=== PATIENT | male | born 1960 | race African-American/Black ===

== ENCOUNTER 2019-08-06 17:50 | Inpatient (IN) ==
[2019-08-06] MEDS ORDERED: PROTONIX IV ONE (18:10)
[2019-08-06] MEDS ORDERED: ZOFRAN IV ONE (18:10)
[2019-08-06] MEDS ORDERED: SODIUM CHLORIDE 0.9% INJ ONE (18:10)
[2019-08-06] MEDS ORDERED: SANDOSTATIN IV ONE (18:12)
--- NOTE | 2019-08-06 18:19 | PROVIDER DOCUMENTATION ---
HPI-General Adult - General Chief Complaint: GI Bleed Stated Complaint: MALE /RECTAL BLEEDING Time Seen by Provider: 08/06/19 17:53 Source: patient, family, EMS Allergies/Adverse Reactions: Patient Allergies Allergy/AdvReac Type Severity Reaction Status Date / Time No Known Allergies Allergy Verified 08/06/19 18:19 Home Medications: Home Medication List Medication Instructions Recorded Confirmed Last Taken Type Hydrochlorothiazide 12.5 mg PO QAM 08/06/19 08/06/19 Unknown History - History of Present Illness -Gen Adult Nature of Presenting Problems: 59yo male presents with CC of bleeding from rectum, bloody vomit, and blood from penis. The patient is lethargic on arrival but is responsive to questions and reports that he started vomiting this morning and also reports abdominal pain. The pt reports that started 1 hour ago the patient started to have blood in his stool and then was vomiting up blood. EMS reports that the patient was vomiting up blood about 250cc. The pt denies that he is on a blood thinner. The patient does have hx of alcohol as well as illegal drug use. The patient does have hx of prostate cancer for which he received radiation. Location of Pain/Injury: reports: abdomen Severity: reports: moderate Onset/Duration: reports: 1 hour ago, this morning Timing: reports: still present Associated Symptoms: reports: nausea, vomiting, other (bloody stool and vomit). denies: fever/chills Review of Systems - Adult - REVIEW OF SYSTEMS - ADULT ROS:: ROS per family (some from patient) Constitutional: reports: no symptoms reported. denies: fever Eyes: reports: no symptoms reported. denies: eye pain Ears, Nose, Mouth & Throat: reports: no symptoms reported Cardiovascular: reports: chest pain Respiratory: denies: shortness of breath Gastrointestinal: reports: abdominal pain, hematemesis, nausea, rectal bleeding, vomiting Genitourinary: reports: hematuria Musculoskeletal: reports: no symptoms reported Integumentary: reports: no symptoms reported Neurological: reports: other (altered mentation) Psychiatric: reports: alcohol/drug dependence Endocrine: reports: no symptoms reported Hematologic/Lymphatic: reports: other (bleeding and hx of radiation) Allergic/Immunologic: reports: no symptoms reported Past History - Adult - PAST MEDICAL HISTORY-ADULT Review of Records: reports: Old Records Reviewed Major Childhood Illnesses: reports: denies history Cardiovascular: reports: A-Fib, HTN Respiratory: reports: denies history Gastrointestinal: reports: GERD Obstetrical/Gynecological: reports: denies history Genitourinary: reports: denies history Musculoskeletal: reports: denies history Neurological: reports: denies history Endocrine/Immune: reports: denies history Other Conditions: reports: denies history - PRIOR SURGERIES/PROCEDURES Surgical/Procedure History: reports: other (bypass graph) - PRIOR HOSPITALIZATIONS Prior Hospitalizations: reports: none - IMMUNIZATION STATUS Childhood Immunizations: See Nurse Assessment Flu Vaccine: See Nurse Assessment - FAMILY HISTORY Family History: reviewed, not pertinent Physical Exam-General - PHYSICAL EXAM-ADULT Initial Vital Signs Reviewed: Yes - CONSTITUTIONAL General Appearance: mild distress, lethargic, slow to respond - EYES Eyes: negative: conjuctival exudate, pale conjunctivae, photophobia, sclera injected, scleral icterus - HEAD, EARS, NOSE, MOUTH & THROAT HENMT: normocephalic/atraumatic, moist mucous membranes. negative: hearing deficit - NECK Neck: non-tender, supple - RESPIRATORY Respiratory: normal breath sounds, no respiratory distress - CARDIOVASCULAR Cardiovascular: other (irregular rhythm). negative: no edema (Trace LE edema) - GASTROINTESTINAL (ABDOMEN) Abdominal Exam: soft, distended, guarding, tenderness (diffuse) - GENITOURINARY Male Genitalia: normal genitalia (grossly normal, no deformity or active bleeding noted) Rectal Exam: black stool, tenderness - MUSCULOSKELETAL Extremity: non-tender, swelling (trace LE edema). negative: deformity - SKIN Integumentary: normal color, warm/dry - NEUROLOGIC Neurologic: grossly normal - PSYCHIATRIC Psych/Mental Status: disoriented x 3 (patient able to say his name), other (patient does follow commands and can engage in some meaningful conversation, but does struggle to answer questions or speak coherently.) Progress - PLAN OF CARE/RESULTS Progress/Plan/Lab Results: Orders Category Date Time Status CBC WITH ELECTRONIC DIFF [HEME] Stat Lab 08/06/19 18:09 Uncollected COMPREHENSIVE METABOLIC PANEL [CHEM] Stat Lab 08/06/19 18:09 Uncollected OCCULT BLOOD NON-FECES Stat Lab 08/06/19 18:10 Uncollected OCCULT BLOOD SCREENING [STOOL] Stat Lab 08/06/19 18:10 Uncollected PROTIME WITH INR [COAG] Stat Lab 08/06/19 18:09 Uncollected PTT [COAG] Stat Lab 08/06/19 18:09 Uncollected TYPE & SCREEN [BBK] Stat Lab 08/06/19 18:09 Uncollected 0.9% Sodium Chloride Inj [Ns] 1,000 ml Med 08/06/19 18:15 Ordered IV 125 mls/hr Octreotide Acetate [Sandostatin] Med 08/06/19 18:12 Once 50 microgm IV NOW ONE Ondansetron [Zofran] Med 08/06/19 18:10 Once 4 mg IV NOW ONE Pantoprazole [Protonix] Med 08/06/19 18:10 Once 40 mg IV NOW ONE Sandostatin 5 Microgm/ml Infusion Med 08/06/19 18:15 Ordered Dextrose 5%-Water Inj [D5w] 100 ml Octreotide Acetate [Sandostatin] 500 microgm IV 10 mls/hr Sodium Chloride 0.9% Med 08/06/19 18:10 Once 10 ml INJ NOW ONE GI Bleed (possible) Stat Oth 08/06/19 18:09 Ordered Result Diagrams: 08/06/19 18:12 08/06/19 18:12 - REASSESSMENT Reassessment #1 Status: other (Discussed case with the GI team who recomended vitamin K and protonix drip, and FFP if needed. The GI team recomended admission to the hospitalist team. The hospitalist team was called and agreed to admit the patient.) Departure - Departure Date of Disposition Decision: 08/07/19 Time of Disposition Decision: 20:44 DIAGNOSIS: Alcohol abuse GI bleed Qualifiers: GI bleed type/associated pathology: unspecified gastrointestinal hemorrhage type Qualified Code(s): K92.2 - Gastrointestinal hemorrhage, unspecified Disposition: ADMITTED INPATIENT 09 Certified Medical Emergency: Emergent Condition: Serious - Critical Care Note This patient required my direct & personal management of CC.: No Attestation - Physician/ BUTCH Attestation Patient care was provided by Advanced Practice Provider:: No The physician spent face to face time with patient:: Yes Advanced Practice Provider documentation review:: Supervising physician onsite and consulted in the evaluation and care of this patient. The physician did have a face to face encounter with the patient.
[2019-08-06] MEDS ORDERED: NS 1,000 ML IV ONE (18:25)
[2019-08-06 18:33] LABS: BASO# 0.07 X1000 (0.0-0.2); BASO% 0.8 % (0.0-0.8); EOS# 0.04 X1000 (0.0-0.7); EOS% 0.5 % (0.0-10.0); HEMATOCRIT 29.6 % (42.0-52.0); HEMOGLOBIN 10.1 g/dL (14.0-18.0); LYMPH# 2.61 X1000 (1.2-3.4); LYMPH% 31.3 % (20.5-51.1); MCH 31.7 PG (27-31); MCHC 34.1 g/dL (33-37); MCV 92.8 FL (81-99); MONO# 0.91 X1000 (0.11-0.59); MONO% 10.9 % (1.7-9.3); MPV 10.4 FL (7.4-10.4); NEUT# 4.71 X1000 (1.4-6.5); NEUT% 56.5 % (42.2-75.2); PLT 116 X1000 (130-400); RBC 3.19 XMIL (4.7-6.1); RDW 15.8 % (11.5-14.5); WBC 8.34 X1000 (4.8-10.8)
[2019-08-06 18:40] LABS: INR 1.66; PROTIME 19.9 Seconds (11.0-16.0)
[2019-08-06 18:41] LABS: PTT 35.4 Seconds (22.3-41.8)
[2019-08-06 18:56] LABS: AGAP 17; ALB/GLOB RATIO 0.8; ALBUMIN 2.9 g/dL (3.5-5.0); ALKALINE PHOSPHATASE 164 U/L (32-122); BUN 16 mg/dL (8-22); CALCIUM 8.3 mg/dL (8.8-10.2); CHLORIDE 109 mmol/L (98-107); COSMO 296; CREATININE 0.9 mg/dL (0.7-1.2); ESTIMATED GFR > 60; GLUCOSE 141 mg/dL (70-104); GOT 63 U/L (10-34); GPT 18 U/L (10-44); POTASSIUM 4.4 mmol/L (3.5-5.1); SODIUM 147 mmol/L (136-145); TCO2 21 mmol/L (25-35); TOTAL BILIRUBIN 1.75 mg/dL (0.20-1.00); TOTAL PROTEIN 6.6 g/dL (6.3-8.3)
[2019-08-06] MEDS ORDERED: VITAMIN K 10 MG in NS 50 ML IV ONE (19:00)
[2019-08-06] MEDS: SANDOSTATIN 500 MICROGM in D5W 100 ML IV SCH (19:00)
[2019-08-06] MEDS ORDERED: M.V.I.-12 10 ML, FOLIC ACID 1 MG, MAGNESIUM SULFATE 1 GM, THIAMINE 100 MG in NS 1,000 ML IV ONE (19:01)
[2019-08-06] MEDS: NS 1,000 ML IV SCH (20:21)
[2019-08-06] MEDS: PROTONIX 80 MG in NS 80 ML IV SCH (20:25)
[2019-08-06] MEDS ORDERED: ATIVAN IV ONE (21:41)
[2019-08-06 22:13] LABS: URINE SOURCE CLEAN CATCH
[2019-08-06 22:35] LABS: BILIRUBIN URINE NEGATIVE (NEGATIVE); BLOOD URINE NEGATIVE (NEGATIVE); COLOR YELLOW; GLUCOSE URINE NEGATIVE (NEGATIVE); KETONE URINE TRACE mg/dL (NEGATIVE); LEUKOCYTES URINE NEGATIVE (NEGATIVE); NITRITE URINE NEGATIVE (NEGATIVE); PROTEIN URINE 30 mg/dL (NEGATIVE); SP GRAVITY URINE 1.025; TURBIDITY URINE CLEAR (CLEAR); UROBILINOGEN URINE 2 mg/dL (NORMAL)
[2019-08-06 22:46] LABS: UR EPITHELIAL CELLS <10 /HPF (<10); URINE BACTERIA NEGATIVE /HPF; URINE RBC <10 /HPF (<10); URINE WBC <10 /HPF (<10)
[2019-08-07 00:12] LABS: HEMATOCRIT 25.8 % (42.0-52.0); HEMOGLOBIN 8.7 g/dL (14.0-18.0)
[2019-08-07] MEDS: NS 1,000 ML IV SCH ×3 (02:55→17:59)
[2019-08-07] MEDS: ZOFRAN IV PRN (03:30)
[2019-08-07] MEDS: SANDOSTATIN 500 MICROGM in D5W 100 ML IV SCH ×2 (03:45→14:05)
[2019-08-07] MEDS: PROTONIX 80 MG in NS 80 ML IV SCH ×3 (05:06→15:26)
[2019-08-07 05:19] LABS: HEMATOCRIT 22.9 % (42.0-52.0); HEMOGLOBIN 7.7 g/dL (14.0-18.0)
--- NOTE | 2019-08-07 06:06 | HISTORY AND PHYSICAL ---
CHIEF COMPLAINT: Hematemesis. HISTORY OF PRESENT ILLNESS: Mr. Amadou De Guzman is a 53-year-old male who has a history of hypertension, atrial fibrillation, gastroesophageal reflux disease, prostate cancer as well as alcoholism. He presents to the hospital because of hematemesis. The patient has been vomiting bright right blood. His hematocrit at time of presentation was noted to be about 29.6. INR was 1.66. The patient was started on Protonix infusion as well as Sandostatin infusion and has been admitted to the intensive care unit for further management. PAST MEDICAL HISTORY: Prostate cancer, atrial fibrillation, hypertension, gastroesophageal reflux disease. SOCIAL HISTORY: The patient drinks alcohol. Smokes cigarettes and uses drugs. FAMILY HISTORY: Positive for hypertension. MEDICATION: The patient takes hydrochlorothiazide. ALLERGIES: No known drug allergies. PAST SURGICAL HISTORY: The patient has had some form of bypass procedure done in the past. REVIEW OF SYSTEMS: Constitutional: No fever. 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 Eyes: No blurred vision. ENT: No hearing problems. Cardiovascular: Has chest pain. Respiratory: Has cough. Gastrointestinal: As in the history of present illness. Genitourinary: Has dysuria. Musculoskeletal: No joint pains. Endocrinology: No thyroid disease or diabetes. Psychiatric: No anxiety or depression. Dermatology: No skin lesions. PHYSICAL EXAMINATION: VITAL SIGNS ARE FOLLOWS: Temperature is 99 degrees, pulse 105, respiratory rate is 18, blood pressure 148/60, oxygen saturation is 100%. HEENT: Atraumatic, normocephalic. He is anicteric. No oral lesions noted. NECK: No lymphadenopathy or thyromegaly. CARDIOVASCULAR: S1, S2. RESPIRATORY: Evidence of good air entry bilaterally. ABDOMEN: Soft, nontender. No masses felt. EXTREMITIES: No evidence of edema. CENTRAL NERVOUS SYSTEM: No obvious focal deficit noted. LABORATORY STUDIES: WBC is 8.34, hematocrit is 25.8, with a platelet count of 116,000. INR is 1.6. Sodium is 147, potassium 4.4, chloride is 109, bicarb 21, BUN is 16, creatinine 0.9. AST 63, ALT 18. ASSESSMENT AND PLAN: 1. Upper gastrointestinal bleed. I suspect this may be secondary to variceal bleed. Maintain patient on Protonix as well as octreotide infusions. Follow up on hemoglobin and hematocrit. Transfuse packed red blood cells as needed. Consult with Gastroenterology for upper gastrointestinal endoscopic studies. The patient will be managed in the intensive care unit. 2. Alcoholism. Maintain patient on delirium tremens prophylaxis. Thiamine as well as folic acid. Check magnesium level and phosphorus levels and replace those if needed. Check CPK level. 3. Thrombocytopenia. Most likely secondary to effect of alcohol on the patient's bone marrow. We will need to follow up on platelet count. 4. Abnormal liver function test. Most likely secondary to alcoholic hepatitis. We will check abdominal ultrasound as well as hepatitis panel. 5. Hypertension. Optimize blood pressure control. 6. Gastroesophageal reflux disease. Patient on proton pump inhibitor. 7. Atrial fibrillation. Place patient on telemetry. Check thyroid function test as well as a 2D echo of the heart. The patient will need rate controlling agent. 8. History of prostate cancer. Await follow up with Oncology post discharge. 9. Deep vein thrombosis prophylaxis. Sequential compression devices. cc: Jeff Lisa MD
[2019-08-07] MEDS ORDERED: REGLAN IV ONE (07:04)
[2019-08-07] MEDS ORDERED: VITAMIN K 10 MG in NS 50 ML IV ONE (07:05)
[2019-08-07 08:24] LABS: TOTAL IRON 157 ug/dL (53-167)
[2019-08-07 08:32] LABS: FREE T4 0.88 ng/dL (0.93-1.70); TSH 0.18 uIUmL (0.27-4.20)
[2019-08-07 09:30] LABS: UNBOUND IRON 21 ug/dL (112-346)
[2019-08-07] MEDS ORDERED: XYLOCAINE-MPF 2% ONE (09:41)
[2019-08-07] MEDS ORDERED: DIPRIVAN 1% ONE ×2 (09:41→09:46)
[2019-08-07] MEDS ORDERED: ZOFRAN ONE (10:03)
--- NOTE | 2019-08-07 10:08 | ENDOSCOPY OPERATIVE NOTE ---
[facility] ENDOSCOPY OPERATIVE NOTE , EGD PROCEDURE REPORT EXAM DATE: 08/07/2019 PATIENT NAME: Amadou De Guzman MR#: [id number] BIRTHDATE: 1960 ATTENDING: Elvis Ding MD STATUS: inpatient DRIVER LICENSE TECHNICIAN: Purnima Malloy and Ольга Alcantar INDICATIONS: The patient is a 59 yr old male here for an EGD due to Hematemesis, Anemia, Cirrhosis, Alcoholism, GERD, H/o prostate Cancer, Afib, Thrombocytopenia, Coagulopathy. PROCEDURE PERFORMED: EGD w/ band ligation of varices MEDICATIONS: Per Anesthesia ESTIMATED BLOOD LOSS: None CONSENT: The patient understands the risks and benefits of the procedure and understands that these r isks include, but are not limited to: sedation, allergic reaction, infection, perforation and/or bleeding. Alternative means of evaluation and treatment include, among others: physical exam, x-rays, and/or surgical intervention. The patient elects to proceed with this endoscopic procedure. DESCRIPTION OF PROCEDURE: During pre-op preparation period all mechanical and medical equipment was c hecked for proper function. Hand hygiene and appropriate measures for infection prevention was taken. After the risks, benefits and alternatives of the procedure were thoroughly explained, Informed consent was verified, confirmed and timeout was successfully executed by the treatment team. The patient was anesthetized with topical anesthesia and the [id number] ([id number]) endoscope was introduced through the mouth and advanced to the second portion of the duoden um. Retroflexion was performed in the stomach and revealed no abnormalities. The gastroscope was then slowly withdraw n and removed. The patient's toleration of the procedure was good. ESOPHAGUS: Z line was at 42 cms from incisors. There were 4 columns of large varices in the middle third of the esophagus and lower third esophagus. There was evidence of a long spot sign. Complete hemostasis was achieved by placing. STOMACH: Mild gastropathy was found in the gastric body. DUODENUM: Mild duodenal inflammation was found in the duodenal bulb. The duodenal mucosa showed no abnormalities in the 2nd part of the duodenum. ADVERSE EVENTS: There were no complications. IMPRESSIONS: 1. Z line was at 42 cms from incisors 2. There were 4 columns of large esophageal varices and varices in the middle third of the esophagus and lower third esophagus; Complete hemostasis was achieved by placing 3. Gastropathy was found in the gastric body 4. Duodenal inflammation was found in the duodenal bulb 5. The duodenal mucosa showed no abnormalities in the 2nd part of the duodenum RECOMMENDATIONS: Sandostatin drip at 50 mcg per hours for 72 hours Protonix drip at 10 ml per hours for 72 hours Transfuse to keep goal of Hb 7-8 g/dl Vitamin K 10 mg IV once daily for 3 days Alcohol withdrawal protocol May need TIPSS at [facility] if develops recurrent variceal bleeding. Discussed with patient family and all questions were answered REPEAT EXAM: Elvis Ding MD eSigned: Elvis Ding MD 08/07/2019 10:08 AM CC: CPT CODES: 59630 Upper gastrointestinal endoscopy including esophagus, stomach, and either the du odenum and/or jejunum as appropriate; with band ligation of esophageal and/or gastric varices ICD CODES: The ICD and CPT codes recommended by this software are interpretations from the data that the [facility] staff has captured with the software. The verification of the translation of this report to the ICD and CPT co viri and modifiers is the sole responsibility of the health care institution and practicing physician where this report was generated. [employer] will not be held responsible for the validity of the ICD and CPT codes i ncluded on this report. A assumes no liability for data contained or not contained herein. CPT is a registered tra demark of the [employer]. PATIENT NAME: Amadou De Guzman MR#: [id number]
[2019-08-07] MEDS: THIAMINE 100 MG in NS 50 ML IV SCH (10:20)
[2019-08-07] MEDS: FOLIC ACID 1 MG in NS 50 ML IV SCH (10:21)
[2019-08-07 11:00] LABS: HEMATOCRIT 25.8 % (42.0-52.0); HEMOGLOBIN 8.5 g/dL (14.0-18.0)
[2019-08-07 11:24] LABS: IRON SATURATION 88 %; TIBC 178 ug/dL
[2019-08-07] MEDS ORDERED: M.V.I.-12 10 ML, THIAMINE 100 MG, FOLIC ACID 1 MG, MAGNESIUM SULFATE 1 GM in NS 1,000 ML IV ONE (11:45)
[2019-08-07] MEDS ORDERED: VITAMIN K 10 MG in NS 50 ML IV SCH (12:00)
[2019-08-07] MEDS: VASOTEC IV SCH ×2 (14:04→21:50)
--- NOTE | 2019-08-07 14:29 | PROGRESS NOTE ---
DATE: 08/07/2019 SUBJECTIVE: Mr. De Guzman is a 59-year-old with history of hypertension, atrial fibrillation, gastroesophageal reflux disease, prostate cancer, as well as alcoholism, who is here in the hospital because of hematemesis. He had been vomiting bright red blood. Hematocrit at the time of presentation was 29. INR is 1.66. Started on Protonix infusion with Sandostatin infusion, and admitted to intensive care. The patient still drinks alcohol. He is comfortable at the present time. He just finished EGD with banding of esophageal varices. OBJECTIVE: Vital Signs: Temperature 97.9 degrees, pulse 109, respirations 17, blood pressure 171/72. HEENT: Pupils are equal and round. Lungs: Clear in all lung elizalde. Cardiovascular: Regular rhythm and rate without murmur or S3. Urine output 2000 mL. ASSESSMENT AND PLAN: 1. Upper gastrointestinal bleed. He is on intravenous Protonix, was getting Sandostatin drip. This is bleeding from esophageal varices, and apparently were banded. Continue to transfuse as needed if hemoglobin gets below 7. 2. Alcoholism. The patient is on delirium tremens prophylaxis, is on thiamine. Will check magnesium level, phosphorus level, and replace these as necessary. 3. Thrombocytopenia, most likely secondary to effect of alcohol on the patient's bone marrow. 4. Abnormal liver function secondary to alcoholic hepatitis. Will check an abdominal ultrasound. 5. Hypertension. He does not remember his medicines. I will put him on some intravenous Vasotec, and will use Apresoline as needed. 6. Gastroesophageal reflux disease. Continue proton pump inhibitor. 7. Atrial fibrillation. The patient is on telemetry. 8. History of prostate cancer. Aware. REVIEW OF ORDERS: At the present time are reviewed, on Librium 25 mg p.o. every 6 hours, Vasotec 1.25 mg IV every 8 hours, folic acid 1 mg IV every 24 hours, Prinivil 10 mg b.i.d., normal saline at 100 mL an hour. He got 10 mg of vitamin K, I believe. Thiamine, he gets 100 mg IV daily, multivitamin once a day. He is on octreotide drip at 50 mcg; this was discontinued. cc: Cem Frazier MD
[2019-08-07 15:26] LABS: HEMATOCRIT 23.8 % (42.0-52.0)
--- NOTE | 2019-08-07 17:54 | Diag Imaging Result Doc PS360 ---
EXAM: US ABDOMEN-COMPLETE 08/07/2019 HISTORY: abn LFTS TECHNIQUE: Abdominal ultrasound COMMENT: The visualized portions of the head and body of the pancreas are within normal limits. The visualized portions of the aorta and inferior vena cava are unremarkable. The liver is somewhat inhomogeneous in echotexture. There are no discrete masses. The gallbladder is thickened with an apparent fixed echo measuring 6 mm near the neck of the gallbladder. There is no evidence of a sonographic Quesada sign. There is no evidence of biliary dilatation the common bile duct measuring less than 2 mm. There is a 2.4 cm cyst in the right kidney anteriorly. The left kidney is without evidence of hydronephrosis or mass. There is a stone in the upper pole of the left collecting system. The spleen is not enlarged. IMPRESSION: Left nephrolithiasis. Cholelithiasis versus polyp. Electronically signed by Hernan Graff 08/07/2019 5:52 PM
--- NOTE | 2019-08-07 18:11 | ECHO REPORT ---
ORDER DATE: 08/07/2019 INTERPRETING PHYSICIAN: Dr. Bonilla CLINICAL INDICATIONS: Atrial fibrillation and hypertension. M-MODE MEASUREMENTS: Left ventricle end diastole: 5.1 cm. Left ventricle end systole: 3.4 cm. Posterior wall: 1.1 cm. Interventricular septum: 1.1 cm. Left atrium: 4.7 cm. Aortic diameter: 3.7 cm. SUMMARY OF 2-DIMENSIONAL IMAGIN. The left ventricular function is normal. Ejection fraction is 66%. There is no wall motion abnormality. There may be borderline concentric LVH. 2. The mitral valve looks normal. There is really a trace of mitral regurgitation. 3. The aortic valve looks normal. Color flow mapping unremarkable. 4. Pulse wave Doppler of mitral inflow shows reversal of the E and the A ratio. Ratio is 0.6. 5. Tissue Doppler of septal and lateral mitral annulus averages 10 cm. There is no diastolic dysfunction. 6. Pulmonic valve is normal. Color flow mapping unremarkable. 7. Tricuspid valve is normal. Color flow mapping is unremarkable. 8. The pulmonary pressure appears to be normal. 9. There is no pericardial effusion, mass, and no thrombus.
--- NOTE | 2019-08-07 18:12 | Diag Imaging Result Doc PS360 ---
EXAM: CT ABD/PELVIS W/IV CONT ONLY 08/07/2019 HISTORY: gi bleed TECHNIQUE: This exam was performed using automated exposure control, adjustment of mA or kV according to patient size, and/or use of iterative reconstruction technique. COMMENT: There are no previous studies available for comparison. There is some apparent mucosal thickening in the distal esophagus and periesophageal fat stranding with small paraesophageal nodes. There are tiny pleural effusions bilaterally. There is coarse interstitial opacity in both lower lobes which may be due to pulmonary edema. The stomach is not distended. There is marked pericholecystic fluid. There is a densely calcified stone dependently in the fundus of the gallbladder measuring almost a centimeter in diameter. There is stranding around the hepatic flexure of the colon and anterior pararenal space bilaterally. The possibility of distal pancreatitis cannot be excluded. There is also some questionable mucosal thickening in the colon in the splenic flexure. The small bowel is not distended. The aorta is not distended. The appendix is normal in appearance. There is a small amount of free fluid in the right paracolic gutter. There are bilateral renal cysts. No evidence of hydronephrosis is present. The aorta is partially calcified but there is no evidence of aneurysm. There are calcifications in the proximal renal arteries bilaterally and at the ostia of the celiac and superior mesenteric arteries. Pelvis: There is perirectal edema and mucosal thickening. There is stranding in the fat around the urinary bladder which also appears thickened although not distended. There is no evidence of diverticulitis. There is subcutaneous edema lateral to the left greater trochanter. There is evidence of bilateral femoral head ischemic necrosis. IMPRESSION: 1. Pulmonary edema. 2. Acute cholecystitis. Cholelithiasis. 3. Pancreatitis. 4. Distal esophagitis, patchy colitis and proctitis. 5. Urinary cystitis. Electronically signed by Hernan Graff 08/07/2019 6:10 PM
[2019-08-07] MEDS: PRINIVIL PO SCH (21:39)
[2019-08-07 23:51] LABS: HEMATOCRIT 23.2 % (42.0-52.0); HEMOGLOBIN 7.8 g/dL (14.0-18.0)
[2019-08-08] MEDS: SANDOSTATIN 500 MICROGM in D5W 100 ML IV SCH ×4 (01:25→22:05)
[2019-08-08] MEDS: NS 1,000 ML IV SCH ×4 (01:38→18:10)
[2019-08-08] MEDS: VASOTEC IV SCH ×3 (05:14→21:44)
[2019-08-08] MEDS: ZOFRAN IV PRN (05:14)
[2019-08-08] MEDS: THIAMINE 100 MG in NS 50 ML IV SCH (05:14)
[2019-08-08] MEDS: FOLIC ACID 1 MG in NS 50 ML IV SCH (05:14)
[2019-08-08 07:38] LABS: BASO# 0.04 X1000 (0.0-0.2); BASO% 0.3 % (0.0-0.8); EOS# 0.06 X1000 (0.0-0.7); EOS% 0.4 % (0.0-10.0); HEMATOCRIT 24.1 % (42.0-52.0); HEMOGLOBIN 8.1 g/dL (14.0-18.0); IMM GRAN# 0.06 X1000 (0.0-0.04); IMM GRAN% 0.4 % (0.0-0.5); LYMPH# 2.38 X1000 (1.2-3.4); LYMPH% 17.6 % (20.5-51.1); MCH 32.1 PG (27-31); MCHC 33.6 g/dL (33-37); MCV 95.6 FL (81-99); MONO# 2.15 X1000 (0.11-0.59); MONO% 15.9 % (1.7-9.3); NEUT% 65.4 % (42.2-75.2); PLT 103 X1000 (130-400); RBC 2.52 XMIL (4.7-6.1); RDW 15.7 % (11.5-14.5); WBC 13.49 X1000 (4.8-10.8)
[2019-08-08 08:03] LABS: AGAP 9; ALB/GLOB RATIO 0.8; ALBUMIN 2.8 g/dL (3.5-5.0); ALKALINE PHOSPHATASE 128 U/L (32-122); BUN 16 mg/dL (8-22); CALCIUM 8.5 mg/dL (8.8-10.2); CHLORIDE 118 mmol/L (98-107); COSMO 307; CREATININE 0.7 mg/dL (0.7-1.2); ESTIMATED GFR > 60; GLUCOSE 137 mg/dL (70-104); GOT 66 U/L (10-34); GPT 17 U/L (10-44); POTASSIUM 3.8 mmol/L (3.5-5.1); SODIUM 153 mmol/L (136-145); TCO2 26 mmol/L (25-35); TOTAL BILIRUBIN 3.08 mg/dL (0.20-1.00); TOTAL PROTEIN 6.3 g/dL (6.3-8.3)
[2019-08-08 08:10] LABS: MAGNESIUM 2.2 mg/dL (1.5-2.7); PHOSPHORUS 2.2 mg/dL (2.7-4.5)
[2019-08-08] MEDS: APRESOLINE IV PRN (08:25)
[2019-08-08] MEDS: ATIVAN IV PRN ×7 (08:25→22:41)
[2019-08-08] MEDS: VITAMIN K 10 MG in NS 50 ML IV SCH (08:25)
[2019-08-08 09:16] LABS: HEMATOCRIT 24.5 % (42.0-52.0); HEMOGLOBIN 8.1 g/dL (14.0-18.0)
[2019-08-08] MEDS: PROTONIX 80 MG in NS 80 ML IV SCH ×3 (09:33→22:13)
[2019-08-08] MEDS: PRINIVIL PO SCH ×2 (09:33→21:44)
[2019-08-08] MEDS: ZOSYN 3.375 GM in NS 50 ML IV SCH ×3 (12:05→22:17)
--- NOTE | 2019-08-08 12:45 | GASTROENTEROLOGY PROGRESS NOTE ---
DATE: 08/08/2019 SUBJECTIVE: Patient currently lying in bed. He is currently. He is getting Ativan for delirium. No active GI bleeding noted. No nausea or vomiting. He has not moved his bowels yet. OBJECTIVE: Vital Signs: Temperature 97.2, pulse 112, respiratory rate 12, blood pressure 188/86. Saturating 99% on room air. Body weight of 188 pounds. BMI 24.1 kg/m2 General appearance: Moderately built, moderately nourished. Lying in bed, currently sleeping. HEENT: Positive pallor. Mild icterus. Neck: Supple. Abdomen: Soft, nontender. No guarding or rebound. Extremities: No cyanosis, clubbing. Neurologic: He is sleeping. LABORATORY DATA: Hemoglobin and hematocrit is 8.1 and 24.1, white count 13.49, platelet count of 103,000. Sodium 150, potassium 3.8, chloride 118, bicarbonate of 22, anion gap 9, BUN of 16, creatinine 0.7, glucose of 137, calcium 8.5, phosphorus 2.2 magnesium 2.2. Total bilirubin is 3.0. AST 66, ALT 17, alkaline phosphatase 130, total protein 6.2, albumin of 2.8. Stool occult blood was positive. Imaging: Ultrasound of the abdomen showed left nephrolithiasis and cholelithiasis versus polyp. Thickened gallbladder wall. CT scan abdomen and pelvis showing pulmonary edema. Acute cholecystitis, cholelithiasis, pancreatitis, distal esophagitis, patchy colitis, proctitis, urinary cystitis. On the ultrasound of the liver description is inhomogeneous echotexture. IMPRESSION AND PLAN: 1. Upper gastrointestinal bleed secondary to esophageal varices, secondary to alcoholism. The patient will be watched closely for delirium. He was jittery and anxious and was started on delirium tremens protocol. 2. Delirium being managed primary team. 3. Alcoholism. The patient will continue on thiamine and multivitamin once daily. He will also continue on folic acid once daily. 4. The patient will continue on [place] 25 mg every 6 hours as needed for delirium tremens. Also getting IV Ativan to 4 mg IV q.1 hour as needed. 5. Hypertension being managed by primary team. His blood pressure is shooting about 180s. Primary care team is managing it. 6. Coagulopathy. He is getting vitamin K and is improving. 7. Anemia. Continue to watch for now, transfuse as needed. 8. Esophageal varices which were the cause of his gastrointestinal bleeding. Continue on Sandostatin drip for 72 hours. On Protonix for 72 hours and switch to Protonix twice daily. 9. Check the hepatitis panel. 10. We will start patient on clear liquid diet. If his mental status is improved, the nurse will do a bedside swallow before starting clear liquids. 11. Cholecystitis and cholelithiasis, gallbladder polyps. He may eventually need cholecystectomy. Surgery consult may be needed. 12. Reflux disease. Continue proton pump inhibitors for now. 13. Thrombocytopenia likely secondary to alcoholic liver cirrhosis. We will continue watch for now. 14. Atrial fibrillation. Aware. 15. History of breast cancer. Aware. He follows Dr. Linda Wayne. 16. The above plans discussed with the patient's nurse at bedside. All questions were answered. Please call with any further questions. cc: MD Cem Hendrickson MD Traci C. McCormick, MD MTDD
--- NOTE | 2019-08-08 13:59 | EKG Report ---
Test Performed on : 08/07/2019 06:22:21 AM Test Reason : AFIB Blood Pressure : / mmHG Vent. Rate : 107 BPM Atrial Rate : 107 BPM P-R Int : 122 ms QRS Dur : 080 ms QT Int : 374 ms P-R-T Axes : 027 029 023 degrees QTc Int : 499 ms Sinus tachycardia. Otherwise normal ECG No previous ECGs available Unconfirmed Result
--- NOTE | 2019-08-08 16:48 | PROGRESS NOTE ---
DATE: 08/08/2019 SUBJECTIVE: Mr. De Guzman is very uncomfortable and agitated. I suspect he is going through alcohol withdrawals, so we will start some IV Ativan which seems to be effective. OBJECTIVE: Vital signs: Temp is 97.9 degrees, pulse 103, respirations 18, blood pressure 176/87. HEENT: His pupils are equal and reactive. Lungs: Clear anterolateral and posterior. Cardiovascular: Regular rate without murmur or S3. Abdomen: Soft, nondistended. Skin: Warm and dry. Urine output from last night was 4500 mL. ASSESSMENT AND PLAN: 1. Upper gastrointestinal bleed secondary to esophageal varices secondary to alcoholism, hepatic cirrhosis, and portal hypertension. He is developing what appears to be delirium tremens. I will start him on some IV Ativan. 2. Delirium. As above. 3. Alcoholism. Continue to be on thiamine, multivitamin once a day, and folic acid once a day. 4. Continue his lithium 25 mg q.6 hours and add IV Ativan up to 4 mg IV every 2 hour if needed. 5. Hypertension. Continue to follow. May be very labile during his alcohol withdrawals. 6. Coagulopathy. He is getting vitamin K and this has improved. 7. Anemia. We will transfuse as needed. 8. Esophageal varices with upper gastrointestinal bleeding. Continue Sandostatin drip for 72 hours. He is on IV Protonix for 72 hours and then switch to Protonix twice a day. 9. Follow his hepatitis profile. Suspect this is from alcoholic hepatitis. 10. The patient is on a clear diet. He is requesting something to swallow so we will let him have some food or some liquids. 11. Cholecystitis and cholelithiasis, gallbladder polyps. He may eventually need cholecystectomy and if we go that direction, we will need surgery consult. 12. Gastroesophageal reflux disease. Continue proton pump inhibitor. 13. Thrombocytopenia secondary to alcoholic cirrhosis. 14. Atrial fibrillation. Rate is controlled. Heart rate going up because of alcohol withdrawal. 15. History of breast cancer. Followed by Linda Wayne MD. 16. Nutrition appears good. We are holding off on advancing his diet until his mental status is a little better. REVIEW OF HIS ORDERS: I am giving him IV Vasotec 1.25 mg IV q.8 hours, folic acid 1 mg q.24 hours, Apresoline he has 10 mg IV q.6 hours p.r.n., Prinivil 10 mg b.i.d., normal saline is at 125 mL an hour. He is on octreotide drip at 10 mL an hour, Protonix 40 mg IV q.12, vitamin K 10 mg IV daily. He is on a Protonix drip at 10 mL an hour, thiamine 100 mg daily, antibiotic, he is on Zosyn 3.375 g IV q.6 hours. LABORATORY: From today, hematocrit is stable at 24, hemoglobin 8.1, white blood cell count 13,490, platelet count a 103,000. Sodium 153, potassium 3.8, chloride 118, BUN 16, creatinine 0.7. cc: Cem Frazier MD
--- NOTE | 2019-08-08 19:07 | GENERAL SURGERY CONSULTATION ---
DATE: 08/08/2019 REQUESTING PHYSICIAN: Dr. Ding. REASON FOR CONSULTATION: Possible cholecystitis. HISTORY OF PRESENT ILLNESS: A 51-year-old gentleman with a history of hypertension, atrial fib, gastroesophageal reflux disease, prostate cancer, as well as alcoholism, initially presenting with what sounds like bleeding esophageal varices. He was admitted and underwent EGD, in which I saw bleeding esophageal varices. He also had a CT scan that potentially saw cholecystitis and cholelithiasis and maybe pancreatitis. He also had an ultrasound which had negative sonographic Quesada sign, but did show cholelithiasis. On his endoscopy procedure, they did see large esophageal varices. None of the imaging at this point has seemed to suggest cirrhosis. I was asked to weigh an opinion. Patient is somewhat altered and there is concern that it might be coming from withdrawals from alcoholism. He does not seem to have any right upper quadrant pain. PAST MEDICAL HISTORY: Includes: 1. Prostate cancer. 2. Atrial fib. 3. Hypertension. 4. Gastroesophageal reflux disease. PAST SURGICAL HISTORY: Includes open heart bypass. FAMILY HISTORY: Positive for hypertension. MEDICATIONS: Current MAR are reviewed. ALLERGIES: None. REVIEW OF SYSTEMS: Unable to obtain secondary to patient's mental status change. PHYSICAL EXAMINATION: Vital Signs: Patient is currently afebrile. Vital signs stable. General: Somewhat altered male, looks stated age. HEENT: Normocephalic, atraumatic. Pupils equal, round, reactive to light. Mucous membranes moist. Oropharynx benign. Neck: Supple. Trachea midline. Cardiovascular: Regular rate and rhythm. Lungs: Grossly clear. Abdomen: Soft. No tenderness in the right upper quadrant. Extremities: Moves all extremities. Neurologic: Altered. Skin: No obvious signs of jaundice. Vascular: All extremities perfused. LABORATORY: White blood cell count 13, hematocrit 24, platelet count 103,000. Sodium is 153, bilirubin is 3, AST is 66, alkaline phosphatase 128. IMAGING: Reviewed and noted above. ASSESSMENT AND PLAN: A 59-year-old gentleman with alcohol withdrawals, bleeding esophageal varices, and possible cholecystitis. 1. Alcohol withdrawal. At this time, he is on the delirium tremens protocol. Will defer to the hospitalist. 2. Bleeding esophageal varices. It sounds like at this point he has them addressed by GI. We will continue to monitor. 3. Cholecystitis. At this time, it may be confounding with everything else he has going on and potentially even confounding secondary to underlying liver disorder. At this time, patient is not an ideal surgical candidate, so we just recommend monitoring for right now. We will continue to follow. cc: Mike Mendez MD
[2019-08-08] MEDS ORDERED: PHENOBARBITAL IV ONE (20:10)
[2019-08-08] MEDS ORDERED: ZYPREXA ZYDIS SL PRN (20:11)
[2019-08-08] MEDS ORDERED: M.V.I.-12 10 ML, FOLIC ACID 1 MG, MAGNESIUM SULFATE 1 GM, THIAMINE 100 MG in NS 1,000 ML IV ONE (20:11)
[2019-08-08 21:53] LABS: INR 1.58; PROTIME 19.2 Seconds (11.0-16.0)
[2019-08-08 22:51] LABS: URINE SOURCE CATH
[2019-08-08 23:01] LABS: BILIRUBIN URINE NEGATIVE (NEGATIVE); BLOOD URINE MODERATE (NEGATIVE); COLOR YELLOW; GLUCOSE URINE NEGATIVE (NEGATIVE); KETONE URINE NEGATIVE (NEGATIVE); LEUKOCYTES URINE NEGATIVE (NEGATIVE); NITRITE URINE NEGATIVE (NEGATIVE); PH URINE 7.5; PROTEIN URINE NEGATIVE (NEGATIVE); SP GRAVITY URINE 1.018; TURBIDITY URINE CLEAR (CLEAR); UROBILINOGEN URINE NORMAL (NORMAL)
[2019-08-08 23:13] LABS: UR EPITHELIAL CELLS <10 /HPF (<10); URINE BACTERIA NEGATIVE /HPF; URINE RBC TNTC /HPF (<10); URINE WBC <10 /HPF (<10)
[2019-08-08] MEDS: ATIVAN 20 MG in NS 190 ML IV SCH (23:36)
[2019-08-09] MEDS: NS 1,000 ML IV SCH (01:46)
[2019-08-09] MEDS: D5W 1,000 ML IV SCH ×2 (03:02→16:08)
[2019-08-09] MEDS: VASOTEC IV SCH ×3 (05:03→20:29)
[2019-08-09] MEDS: ZOSYN 3.375 GM in NS 50 ML IV SCH ×4 (05:03→23:35)
[2019-08-09] MEDS: FOLIC ACID 1 MG in NS 50 ML IV SCH (06:19)
[2019-08-09] MEDS: THIAMINE 100 MG in NS 50 ML IV SCH (06:19)
--- NOTE | 2019-08-09 06:55 | GENERAL SURGERY PROGRESS NOTE ---
DATE: 08/09/2019 Nursing staff reports the patient has become more agitated through the night, more consistent with going into DTs. They have had to put the patient in restraints. He was very difficult to examine to see if he was having any right upper quadrant pain. At this point, I recommend treating his DTs first, keep him on antibiotics for the potential for cholecystitis but we will have to see how he does with his DTs before we can consider any kind of surgical intervention. cc: Mike Mendez MD
[2019-08-09] MEDS: SANDOSTATIN 500 MICROGM in D5W 100 ML IV SCH (08:09)
[2019-08-09] MEDS: VITAMIN K 10 MG in NS 50 ML IV SCH (08:11)
[2019-08-09] MEDS: ATIVAN 20 MG in NS 190 ML IV SCH (08:19)
[2019-08-09] MEDS: APRESOLINE IV PRN (11:03)
[2019-08-09] MEDS ORDERED: VALIUM IV ONE (11:53)
--- NOTE | 2019-08-09 11:58 | GASTROENTEROLOGY PROGRESS NOTE ---
DATE: 08/09/2019 SUBJECTIVE: Mr. De Guzman is a 59-year-old, male, lying in bed. The patient is on restraints on both hands and legs, confused, unable to assess patient. OBJECTIVE: Vital Signs: Temperature 98.5 degrees, pulse is 117, respirations 28, blood pressure 151/66, oxygen saturation 97% on room air. His weight is 188 pounds, BMI is 24.1 kg/m2. General: Unable to assess, he is confused. HEENT: Pale conjunctivae. Mild icterus. PERRL. Neck: Supple. Lungs: Wheezing heard in the upper anterior lobes. Cardiovascular: The patient is tachycardic and tachypneic. Abdomen: Soft, nontender, nondistended. Active bowel sounds heard in all 4 quadrants. Extremities: No clubbing, no cyanosis, no edema. Pedal pulses 2+ present. Neurologic: Unable to assess the patient. LABORATORY DATA: WBCs from 08/08/2019 are 13.49, RBCs 2.52, hemoglobin 8.1, hematocrit 24.5, platelet count is 11,000. Chemistries from 08/08/2019 show sodium 153, potassium 3.8, chloride 118, carbon dioxide 26, anion gap 9, BUN 16, creatinine 0.7, glucose 137, calcium 8.5. Total bilirubin 3.08, AST 66, ALT 17, alkaline phosphatase 128. IMPRESSION AND PLAN: Upper GI bleed Esophageal varices s/p banding Decompensated ETOH cirrhosis Alcoholism Acute blood loss anemia GERD Delirium Hypertension PLAN: Mr. De Guzman is a 59-year-old, male with a history of alcoholism. GI is following him for his GI bleed. An endoscopy was done on 08/07/2019. The patient had 4 columns of large esophageal varices, varices in the middle third of the esophagus and lower third of the esophagus. Complete hemostasis was achieved by banding three esophageal varices. Gastropathy was found in the gastric body. Duodenal inflammation was found in the duodenal bulb. The duodenal mucosa showed no abnormalities in the second part of the duodenum. We have discontinued Sandostatin IV drip. He is receiving folic acid IV 100 mL/h, thiamine 100 mg at 100 mL/h. The patient is also on Protonix drip 80 mg at 10 mL/h. He is receiving his antibiotic, Zosyn and IV fluids, D5 at 85 mL.If the patient develops recurrent variceal bleeding he will need TIPS to be done at [facility]. Patient is on alcohol withdrawal protocol. We will continue to monitor the patient, and follow the plan of care per PCP. This plan was discussed with Dr. Valdez. Please call us for any further questions or concerns Dictated by LIVIA Pryor for Todd Valdez MD Physician Attestation I have seen and examined the patient. I have discussed and reviewed the note by Anastasia BHAKTA and agree with findings and plan as documented. MTDD
--- NOTE | 2019-08-09 12:26 | PROGRESS NOTE ---
DATE: 08/09/2019 SUBJECTIVE: I have seen and examined Mr. De Guzman today in the critical care unit. His ex- was at the bedside at the time of the encounter. Mr. De Guzman presented 3 days ago because of massive GI bleed. Hemoglobin had dropped to 7.7 at some point, and he has gotten a total of 1 PRBC transfusion. He has also undergone EGD yesterday. Per documentation, he seems to have been getting into DTs this morning. He is in 4-point restraint. He is completely obtunded and not following any commands. OBJECTIVE: Vital Signs: Blood pressure is 151/66, pulse of 117, respirations 28, temperature is 98.5 degrees. General: Mr. De Guzman is a 59-year-old gentleman. He is in bed. He is in 4-point restraints, still very agitated. HEENT: Mucosa is pink and moist. Anicteric. Acyanotic. Neck: Supple. Chest: Good air entry bilaterally. I did not hear any crepitations. No rhonchi. There is an old sternotomy scar on the anterior chest wall. Cardiovascular: Tachycardic, but no murmurs. Gastrointestinal: Abdomen is soft. Bowel sounds present. Extremities: No pedal edema. Central Nervous System: Patient is very agitated and quite lethargic. He would wake up, extremely delirious, but he is nonverbal, inattentive, tried to pull himself out of the restraint. Input and Output: Urine output was 2520, currently positive balance of 1495. IMAGING STUDIES: On admission did show a CT scan that showed pulmonary edema, acute cholecystitis, cholelithiasis, pancreatitis, distal esophageal patchy colitis and proctitis. So far, no cultures. LABORATORY DATA: None for today. ASSESSMENT AND PLAN: 1. Massive upper gastrointestinal bleed on admission. The patient is status post esophagogastroduodenoscopy. Findings reveal esophageal varices. Patient is status post banding. 2. Anemia of acute blood loss from gastrointestinal bleed. 3. History of severe alcohol use and abuse. 4. Delirium secondary to severe alcohol withdrawal. The patient is on benzodiazepine as needed per protocol. 5. Acute cholecystitis. The patient is at this point not able to tell me if he is hurting at his side. An ultrasound did not show any evidence of Quesada's sign. There were some gallstones. Surgery is on board for now, and the recommendation is to treat with antibiotics until the patient is out of the delirium tremens. 6. Folate deficiency. We will continue to replace. 7. Questionable pancreatitis. We will get a lipase level. 8. History of prostate cancer. cc: Abrahan Park MD MTDD
[2019-08-09] MEDS: THERA M PLUS PO SCH (12:40)
[2019-08-09] MEDS: PROTONIX 80 MG in NS 80 ML IV SCH ×2 (12:40→16:03)
[2019-08-09 13:44] LABS: HEPATITIS PROFILE ACUTE SEE COMMENTS
[2019-08-10] MEDS: ATIVAN IV PRN ×6 (00:41→20:21)
[2019-08-10] MEDS: D5W 1,000 ML IV SCH ×2 (05:27→20:15)
[2019-08-10] MEDS: ZOSYN 3.375 GM in NS 50 ML IV SCH ×4 (05:27→23:34)
[2019-08-10] MEDS: FOLIC ACID 1 MG in NS 50 ML IV SCH (05:28)
[2019-08-10] MEDS: THIAMINE 100 MG in NS 50 ML IV SCH (05:28)
[2019-08-10] MEDS: VASOTEC IV SCH ×4 (05:28→21:38)
[2019-08-10] MEDS: SODIUM CHLORIDE 0.9% 10 ML ONE (08:42)
[2019-08-10] MEDS: PROTONIX IV SCH ×2 (08:42→20:15)
[2019-08-10] MEDS: THERA M PLUS PO SCH (09:57)
[2019-08-10 10:03] LABS: AGAP 10; ALB/GLOB RATIO 0.8; ALBUMIN 2.8 g/dL (3.5-5.0); ALKALINE PHOSPHATASE 110 U/L (32-122); BUN 9 mg/dL (8-22); CALCIUM 8.2 mg/dL (8.8-10.2); CHLORIDE 111 mmol/L (98-107); COSMO 286; CREATININE 0.9 mg/dL (0.7-1.2); ESTIMATED GFR > 60; GLUCOSE 134 mg/dL (70-104); GOT 88 U/L (10-34); GPT 25 U/L (10-44); HEMATOCRIT 24.9 % (42.0-52.0); HEMOGLOBIN 8.1 g/dL (14.0-18.0); MCH 31.6 PG (27-31); MCHC 32.5 g/dL (33-37); MCV 97.3 FL (81-99); MPV 10.4 FL (7.4-10.4); POTASSIUM 3.1 mmol/L (3.5-5.1); RBC 2.56 XMIL (4.7-6.1); RDW 16.3 % (11.5-14.5); SODIUM 143 mmol/L (136-145); TCO2 22 mmol/L (25-35); TOTAL BILIRUBIN 4.54 mg/dL (0.20-1.00); TOTAL PROTEIN 6.4 g/dL (6.3-8.3); WBC 13.9 X1000 (4.8-10.8)
[2019-08-10] MEDS: ATIVAN 20 MG in NS 190 ML IV SCH (10:16)
--- NOTE | 2019-08-10 12:39 | PROGRESS NOTE ---
DATE: 08/10/2019 SUBJECTIVE: This morning, Mr. De Guzman was very obtunded, almost nonverbal, was sleeping. He would intermittently open his eyes and try to pull himself out of the restraint. The girlfriend was at the bedside at the time of the encounter. OBJECTIVE: Vital Signs: Blood pressure is 141/72, pulse 112, respirations 26, temperature is 99.1, the patient was saturating 96% on room air. General: Mr. De Guzman is a 59-year-old, gentleman. He is in bed. No distress. HEENT: Mucosa is pink and moist. Anicteric. Acyanotic. Neck: Supple. Chest: Good air entry bilaterally. There is an old sternotomy scar on the anterior chest wall. Cardiovascular: Slightly tachycardic, but no murmurs, no rubs, no gallops. GI: Abdomen is soft, nontender. Bowel sounds present. Extremities: No pedal edema. LEVEL VIAL INSIDE GRINDER: The patient is sleepy, lethargic, but easily arousable and will try to pull himself out of the restraint. LABORATORY DATA: WBC is 13.90, hemoglobin is 8.1, platelet count of 116,000. Chemistry is also reviewed. Potassium 3.1. Rest of chemistry is unremarkable. Hepatitis panel is negative. ASSESSMENT: 1. Massive upper gastrointestinal bleed on admission secondary to variceal bleed. The patient is status post esophagogastroduodenoscopy with esophageal varices banding. 2. Anemia of acute blood loss from gastrointestinal bleed. 3. Altered mental status secondary to delirium from alcohol withdrawal. Will continue with the protocol. 4. Alcohol use and abuse. 5. Acute cholecystitis on imaging. The patient is being followed up by Surgery. 6. Folate deficiency. Will continue replacement. 7. Questionable pancreatitis mentioned on imaging studies. 8. History of prostate cancer. I think Mr. De Guzman continues to be stable. He is still altered and combative. He is in restraint. He is also on Ativan drip per the protocol. Once he gets more sober and more cooperative, we will start him on the Librium and gabapentin. Will also start him on a full liquid diet. cc: Abrahan Park MD
[2019-08-10] MEDS: LACTULOSE MISC SCH ×2 (14:24→20:15)
--- NOTE | 2019-08-10 16:18 | GASTROENTEROLOGY PROGRESS NOTE ---
DATE: 08/10/2019 SUBJECTIVE: Mr. De Guzman is a 59-year-old male. He is resting in bed with the family at the bedside. Patient is still having withdrawals. He is confused, and has soft restrains on both hands and legs. Unable to assess patient. OBJECTIVE: Vital Signs: Temperature 98.4 degrees, pulse 86, respirations 27, blood pressure 161/81, and oxygen saturation 97% on room air. The patient's weight is 188 pounds. BMI is 24.1 kg/m2. General: The patient is confused and unable to assess. HEENT: Pale conjunctivae. Mild icterus. PERRL. Neck: Supple. Lungs: Wheezing heard in the upper anterior lobes. Cardiovascular: Regular rate and rhythm. Abdomen: Soft. Nondistended. Active bowel sounds in all 4 quadrants. Extremities: No clubbing, no cyanosis, no edema. Pedal pulses 2+ present. Neurologic: Confused and unable to assess patient. LABORATORY DATA: WBCs are 13.90, RBCs 2.56, hemoglobin 8.1, hematocrit is 24.9, and platelet count 116,-000. Sodium 143, potassium 3.1, chloride 111, carbon dioxide 22, anion gap 10, BUN 9, creatinine 0.9, glucose 134, total bilirubin 4.54, AST 88, ALT 25, and alkaline phos 110. Ammonia is 82. The patient's hepatitis profile has been nonreactive. EGD FINDINGS: EGD on 08/07/2019 findings were 4 columns of large esophageal varices, varices in the middle third of the esophagus and lower third of the esophagus, complete hemostasis was achieved by placing three bands. Gastropathy found in the gastric body. Duodenal inflammation in the duodenal bulb and the mucosa was normal. IMPRESSION AND PLAN Bleeding esophageal varices Blood loss anemia Decompensated ETOH cirrhosis Alcohol withdrawal Question hepatic encephalopathy Acute cholecystitis on imaging Abnormal LFTs Abnormal CT PLAN: Mr. De Guzman is a 59-year-old male with a history of alcoholism. GI has been following him for his GI bleed. The cause of his GI bleed was esophageal varices which were banded and the bleeding is under control. Nursing staff has denied noticing any further bleeding episodes. The patient is on alcohol withdrawal protocol. He is receiving Ativan IV drip and is on IV folic acid and thiamine. He is on Protonix 40 mg IV twice a day. If the patient has recurrent variceal bleeding, he will need a TIPSS to be done at [facility]. His ammonia level yesterday was 82. We have started him on lactulose enemas 3 times a day. We will continue to monitor the patient's liver functions and ammonia level. This plan was discussed with Dr. Valdez. Please call us for any further questions or concerns. Dictated by LIVIA Pryor for Todd Valdez MD Physician Attestation I have seen and examined the patient. I have discussed and reviewed the note by Anastasia BHAKTA and agree with findings and plan as documented. In brief, Mr. Amadou De Guzman is a 59 year old man who presented with UGIB from bleeding varices s/p EGD and banding. His course has been complicated by DTs requiring ativan drip +/- PSE. Abdominal imaging was concerning for possible acute cholecystitis. There was inflammation noted in the colon, bladder, distal esophagus, and pancreas as well. His abdomen is benign on exam; however, unable to obtain ROS. LFTs are climbing as well as WBC. Hgb stable. He is on zosyn. Will start lactulose enemas. Stopped octreotide. Continue thiamine, folate, NPO status. On ativan drip. Will follow with you. MTDD
[2019-08-10] MEDS: NEURONTIN PO SCH (20:02)
[2019-08-11] MEDS: ATIVAN IV PRN ×6 (02:45→23:36)
[2019-08-11] MEDS: ZOSYN 3.375 GM in NS 50 ML IV SCH ×4 (05:41→22:21)
[2019-08-11] MEDS: VASOTEC IV SCH ×3 (05:45→21:22)
[2019-08-11 08:04] LABS: AGAP 8; ALBUMIN 2.6 g/dL (3.5-5.0); BUN 7 mg/dL (8-22); CALCIUM 7.9 mg/dL (8.8-10.2); CHLORIDE 111 mmol/L (98-107); COSMO 278; CREATININE 0.8 mg/dL (0.7-1.2); ESTIMATED GFR > 60; GLUCOSE 114 mg/dL (70-104); PHOSPHORUS 2.7 mg/dL (2.7-4.5); POTASSIUM 3.2 mmol/L (3.5-5.1); SODIUM 140 mmol/L (136-145); TCO2 21 mmol/L (25-35)
[2019-08-11 09:17] LABS: BASO# 0.05 X1000 (0.0-0.2); BASO% 0.4 % (0.0-0.8); EOS% 2.1 % (0.0-10.0); HEMATOCRIT 24.9 % (42.0-52.0); HEMOGLOBIN 8.2 g/dL (14.0-18.0); IMM GRAN# 0.05 X1000 (0.0-0.04); IMM GRAN% 0.4 % (0.0-0.5); LYMPH# 2.85 X1000 (1.2-3.4); LYMPH% 20.3 % (20.5-51.1); MCH 32.2 PG (27-31); MCHC 32.9 g/dL (33-37); MCV 97.6 FL (81-99); MPV 10.5 FL (7.4-10.4); NEUT# 8.69 X1000 (1.4-6.5); NEUT% 61.8 % (42.2-75.2); PLT 125 X1000 (130-400); RBC 2.55 XMIL (4.7-6.1); RDW 16.8 % (11.5-14.5); WBC 14.04 X1000 (4.8-10.8)
--- NOTE | 2019-08-11 09:29 | GENERAL SURGERY PROGRESS NOTE ---
DATE: 08/11/2019 SUBJECTIVE: Discussed case with nursing staff. The patient has been about the same. He still has some altered mental status. He has been hemodynamically stable, but he does not seem to have any right upper quadrant tenderness at this time. LABORATORY DATA: His laboratories from this morning are pending, but reviewed his labs from yesterday. His white blood cell count is stable. His bilirubin is slightly trending up to 4, but his alkaline phosphatase is normalizing. His ALT is normalizing, but his AST is slightly elevated. ASSESSMENT AND PLAN: From a surgical point of view, I would still recommend current treatment. No plans for surgical intervention. Unsure if his gallbladder is actually involved or it is just secondarily inflamed secondary to everything else that is occurring, but we will continue to follow. cc: Mike Mendez MD
[2019-08-11] MEDS: POTASSIUM CHLORIDE 20 MEQ/SWI 20 MEQ/100 ML IVPB IV SCH ×2 (09:43→11:51)
[2019-08-11] MEDS: LACTULOSE MISC SCH (09:43)
[2019-08-11] MEDS: PROTONIX IV SCH ×2 (10:23→21:21)
[2019-08-11] MEDS: SODIUM CHLORIDE 0.9% 10 ML ONE (10:24)
[2019-08-11] MEDS ORDERED: SODIUM CHLORIDE 0.9% 10 ML ONE ×2 (10:25→21:00)
[2019-08-11] MEDS: NEURONTIN PO SCH ×2 (10:37→22:21)
[2019-08-11] MEDS: THERA M PLUS PO SCH (10:37)
[2019-08-11] MEDS: D5W 1,000 ML IV SCH (10:38)
[2019-08-11] MEDS: CLINIMIX E 4.25%-5% SOLUTION 1,000 ML IV SCH ×2 (11:56→21:22)
--- NOTE | 2019-08-11 12:08 | PROGRESS NOTE ---
DATE: 08/11/2019 SUBJECTIVE: Mr. De Guzman continues to be remarkably altered, extremely lethargic. The brother was at the bedside at the time of encounter today. OBJECTIVE: Vital Signs: Blood pressure is 131/84, pulse of 67, respiration is 24, temperature is 99.2 degrees. The patient is saturating 99% on room air. General: Mr. De Guzman is 59-year-old gentleman. He is in bed. He does not seems to be in any cardiopulmonary distress. HEENT: Mucosa is pink and moist. Anicteric. Acyanotic. Neck: Supple. Chest: Good air entry bilaterally. There were no crepitations, no rhonchi. There is an old sternotomy scar on the anterior chest wall. Cardiovascular: Regular rate and rhythm. No murmurs, no rubs, no gallops. Gastrointestinal: The abdomen is soft. Bowel sounds present. There is no hepatosplenomegaly. Extremities: No pedal edema. Distal pulses are present. Genitourinary: Borrego catheter still in place. Central Nervous System: The patient is lethargic, but is easily arousable and will try to pull himself out of the restraints. LABORATORY DATA: WBC is up to 14.04, hemoglobin is 8.22, platelet count of 125,000. Chemistry is also reviewed. Potassium is 3.2, phosphorus is 2.7. ASSESSMENT AND PLAN: 1. Massive upper gastrointestinal bleed on admission secondary to esophageal variceal bleeding. The patient is status post esophagogastroduodenoscopy with esophageal varices banding. 2. Anemia of acute blood loss from gastrointestinal source. The patient is status post 1 packed red blood cell transfusion. Hemoglobin and hematocrit are fairly stable for the past 2 days. 3. Altered mental status from global encephalopathy, presumably from alcohol withdrawal delirium. However, hepatic encephalopathy, infectious causes, and acute vitamin deficiencies encephalopathies could all explain. Every possible etiology is being addressed. We will discontinue the Ativan drip today 4. Alcohol use and abuse prior to hospitalization noted. This will be addressed more effectively with the patient. We did discuss cessation with the brother. 5. Cholelithiasis versus gallbladder polyp with questionable cholecystitis. Surgery has been consulted. Recommendation is to continue medical management for now until the patient's withdrawal and mentation improves. 6. Acute pancreatitis on imaging. Lipase was normal. 7. History of prostate cancer, aware. 8. Electrolyte abnormality including hypokalemia, hypophosphatemia. We will continue to replace. 9. Protein-calorie malnutrition. Albumin is 2.6. The patient has been started on Clinimix. 10. Elevated white cell count, presumably related to the withdrawal. However, an underlying infection cannot be entirely ruled out. Blood cultures will be done. We will repeat a urinalysis and urine culture. The patient is currently on antibiotics. I have discussed my findings and the plan with the brother who was at the bedside at the time of the encounter. cc: Abrahan Park MD MTDD
[2019-08-11] MEDS: THIAMINE 100 MG in NS 50 ML IV SCH (13:34)
[2019-08-11] MEDS: FOLIC ACID 1 MG in NS 50 ML IV SCH (13:34)
--- NOTE | 2019-08-11 14:28 | GASTROENTEROLOGY PROGRESS NOTE ---
DATE: 08/11/2019 SUBJECTIVE: Mr. De Guzman is a 59-year-old, male. He is resting in bed. Family is at the bedside. The patient is still agitated at times. The patient was opening his eyes, but he was not alert or oriented. He is still confused and has soft restraints on both hands and legs. OBJECTIVE: Vital Signs: Temperature 98.4 degrees, pulse 60, respirations 18, blood pressure 131/61, oxygen saturation 94%. He is on a BiPAP. The patient's weight is 188 pounds, BMI is 24.1 kg/m2. General: The patient is confused and unable to assess. HEENT: Pale conjunctivae. Mild icterus. PERRL. Neck: Supple. Lungs: Wheezing heard in the anterior lobes. Cardiovascular: Regular rate and rhythm. Abdomen: Soft, nondistended. Active bowel sounds heard in all 4 quadrants. Extremities: No clubbing, no cyanosis, no edema. Pedal pulses 2+ present bilaterally. Neurologic: Confused, Unable to assess the patient. LABORATORY DATA: WBCs 14.04, RBCs 2.55, hemoglobin is 8.2, hematocrit is 24.9, platelet count is 125,000. Sodium 140, potassium 3.2, chloride 111, carbon dioxide 21, anion gap 8, BUN 7, creatinine 0.8, glucose 114, calcium 7.9. Phosphorus 2.7. Creatine kinase is 83. Albumin is 2.6. Ammonia 83. IMPRESSION AND PLAN: GI bleed Delirium tremors Alcohol withdrawal Alcoholic cirrhosis Anemia esophageal Varices PLAN: Mr. De Guzman is a 59-year-old, male with a history of alcoholism. GI is following him for his GI bleed. The patient's hemoglobin and hematocrit today are 8.2 and 24.9. The nursing staff has denied noticing any further bleeding episodes. The patient is on alcohol withdrawal protocol. The patient's Ativan drip has been discontinued, but he is receiving Ativan IV every 1 hour as needed, 2 to 4 mg, for his withdrawals. The patient is on folic acid and thiamine IV. The patient's liver enzymes have been elevated today. Total bilirubin is 4.54, AST is 88, ALT is 25, alkaline phosphatase is 110. We have started the patient on lactulose enema TID. The nurse at the bedside mentioned that the patient is not holding in the enema. His ammonia level today is 83. We will continue patient with lactulose enemas, monitor his ammonia levels, LFT's, H & H and follow the plan of care per PCP. This plan was discussed with Dr. Ding. Please call us for any further questions or concerns. Dictated by LIVIA Pryor for Elvis Ding MD cc: Elvis Ding MD I have seen and examined the patient myself and I agree with the above plan of care. Please call us with any further questions or concerns. JERRY
[2019-08-11 15:38] LABS: URINE SOURCE CATH
[2019-08-11 16:09] LABS: BILIRUBIN URINE SMALL (NEGATIVE); BLOOD URINE MODERATE (NEGATIVE); COLOR YELLOW; GLUCOSE URINE NEGATIVE (NEGATIVE); KETONE URINE TRACE mg/dL (NEGATIVE); LEUKOCYTES URINE TRACE (NEGATIVE); NITRITE URINE NEGATIVE (NEGATIVE); PH URINE 6.5; PROTEIN URINE 30 mg/dL (NEGATIVE); SP GRAVITY URINE 1.031; TURBIDITY URINE CLEAR (CLEAR); UROBILINOGEN URINE NORMAL (NORMAL)
[2019-08-11 16:15] LABS: UR EPITHELIAL CELLS <10 /HPF (<10); URINE BACTERIA NEGATIVE /HPF; URINE RBC TNTC /HPF (<10); URINE WBC <10 /HPF (<10)
[2019-08-11 16:32] LABS: URINE CRYSTALS NONE SEEN
[2019-08-11] MEDS: NON-FORMULARY MED PR SCH ×2 (17:10→22:21)
[2019-08-12] MEDS: ATIVAN IV PRN ×4 (01:00→22:09)
[2019-08-12] MEDS: ZOSYN 3.375 GM in NS 50 ML IV SCH ×3 (04:59→17:25)
[2019-08-12] MEDS: VASOTEC IV SCH ×3 (04:59→20:35)
[2019-08-12] MEDS: THIAMINE 100 MG in NS 50 ML IV SCH (05:00)
[2019-08-12] MEDS: FOLIC ACID 1 MG in NS 50 ML IV SCH (05:00)
[2019-08-12 06:17] LABS: BASO# 0.05 X1000 (0.0-0.2); BASO% 0.4 % (0.0-0.8); EOS# 0.29 X1000 (0.0-0.7); EOS% 2.2 % (0.0-10.0); HEMOGLOBIN 7.9 g/dL (14.0-18.0); IMM GRAN# 0.04 X1000 (0.0-0.04); IMM GRAN% 0.3 % (0.0-0.5); LYMPH# 2.31 X1000 (1.2-3.4); LYMPH% 17.6 % (20.5-51.1); MCH 32.2 PG (27-31); MCHC 32.9 g/dL (33-37); MPV 11.5 FL (7.4-10.4); NEUT# 8.36 X1000 (1.4-6.5); NEUT% 63.5 % (42.2-75.2); PLT 139 X1000 (130-400); RBC 2.45 XMIL (4.7-6.1); RDW 17.1 % (11.5-14.5); WBC 13.15 X1000 (4.8-10.8)
[2019-08-12 06:30] LABS: AGAP 10; ALB/GLOB RATIO 0.7; ALBUMIN 2.6 g/dL (3.5-5.0); ALKALINE PHOSPHATASE 117 U/L (32-122); BUN 10 mg/dL (8-22); CALCIUM 7.9 mg/dL (8.8-10.2); CHLORIDE 112 mmol/L (98-107); COSMO 282; CREATININE 0.7 mg/dL (0.7-1.2); ESTIMATED GFR > 60; GLUCOSE 131 mg/dL (70-104); GOT 83 U/L (10-34); GPT 28 U/L (10-44); MAGNESIUM 1.9 mg/dL (1.5-2.7); PHOSPHORUS 3.2 mg/dL (2.7-4.5); POTASSIUM 3.4 mmol/L (3.5-5.1); SODIUM 141 mmol/L (136-145); TCO2 19 mmol/L (25-35); TOTAL BILIRUBIN 3.87 mg/dL (0.20-1.00); TOTAL PROTEIN 6.5 g/dL (6.3-8.3)
--- NOTE | 2019-08-12 07:08 | GENERAL SURGERY PROGRESS NOTE ---
DATE: 08/12/2019 Patient is a little difficult to assess. Nursing staff reports he is still having what appears to be withdrawal like symptoms. He does not really seem to have any right upper quadrant pain, but again is very difficult exam. At this time, we will recommend just to continue monitoring. cc: Mike Mendez MD
[2019-08-12 08:09] LABS: EOS 1 % (1-10); LYMPHS 16 % (21-51); NRBC 3 % (0-0); SEGS 83 % (42-75)
[2019-08-12 08:11] LABS: LARGE PLATELETS OCCASIONAL; POLYCHROM 2+
[2019-08-12] MEDS: CLINIMIX E 4.25%-5% SOLUTION 1,000 ML IV SCH ×3 (08:26→19:50)
[2019-08-12] MEDS: PROTONIX IV SCH ×2 (08:27→20:35)
[2019-08-12] MEDS: NEURONTIN PO SCH ×2 (09:19→20:35)
[2019-08-12] MEDS: THERA M PLUS PO SCH (09:19)
[2019-08-12] MEDS: POTASSIUM CHLORIDE 20 MEQ/SWI 20 MEQ/100 ML IVPB IV SCH ×2 (09:22→11:43)
[2019-08-12] MEDS: NON-FORMULARY MED PR SCH ×3 (10:50→17:24)
--- NOTE | 2019-08-12 16:06 | GASTROENTEROLOGY PROGRESS NOTE ---
DATE: 08/12/2019 SUBJECTIVE: Mr. De Guzman is a 59-year-old male, resting in bed. Family is at the bedside. The patient is still having withdrawals. He is confused and is on soft restraints on both arms and legs. OBJECTIVE: Vital Signs: Temperature 98.2 degrees, pulse 99, respirations 24, blood pressure 124/65, oxygen saturation 96% on room air. His weight is 188 pounds. BMI is 24.1 kg/m2. General: He is confused and unable to assess. HEENT: Pale conjunctivae. Mild icterus. PERRL. Neck: Supple. Lungs: Wheezing heard in the anterior lobes. Cardiovascular: The patient is tachycardic. Abdomen: Soft, non distended. Active bowel sounds heard in all 4 quadrants. Extremities: No clubbing, no cyanosis, no edema. Pedal pulses 2+ present bilaterally. Neurologic: Confused. Unable to assess. LABORATORY DATA: WBC is a 13.15, RBC is 2.45, hemoglobin is 7.9, hematocrit is 24.1, platelet count is 139,000. Sodium is 141, potassium is 3.4, chloride is 112, carbon dioxide 19, anion gap 10, BUN 10, creatinine 0.7, glucose 131, calcium 7.9, phosphorus 3.2, magnesium 1.9, total bilirubin is 3.87, AST is 83, ALT is 28, alkaline phosphatase is 117. Ammonia is 61, albumin is 2.6. The patient's urinalysis yesterday has shown protein of 30, trace of ketones, moderate amount of blood, small amount of bilirubin, and trace of leukocytes. IMPRESSION AND PLAN 1. Bleeding esophageal varices. 2. Blood loss anemia. 3. Decompensated alcoholic cirrhosis. 4. Alcohol withdrawal. 5. Questionable hepatic encephalopathy. 6. Acute cholecystitis on imaging. 7. Elevated liver function tests . PLAN: Mr. De Guzman is a 59-year-old male with a history of alcoholism. GI is following him for the GI bleed. The patient had esophageal variceal banding done. His hemoglobin and hematocrit today are 7.9 and 24.0. The nursing staff has denied noticing any further bleeding episodes. The patient's Ativan drip has been discontinued, but he is on Ativan every 1 hour as needed for his withdrawals. He is currently on folic acid 1 mg at 100 mL/h and thiamine 100 mg 120 mm/hour. He is also on antibiotic, Zosyn. We will continue Protonix 40 mg IV twice a day. The patient is receiving Clinimix 100 mL for his nutrition. The patient is also on lactulose enema 3 times a day. We will continue to monitor the patient and follow the plan of care per PCP. This plan was discussed with Dr. Valdez. Please call us for any further questions or concerns. Dictated by LIVIA Pryor for Todd Valdez MD Physician Attestation I have seen and examined the patient. I have discussed and reviewed the note by Anastasia BHAKTA and agree with findings and plan as documented. In brief, Mr. Amadou De Guzman is a 59 year old man who presented with UGIB from bleeding varices s/p EGD and banding. His course has been complicated by DTs s/p ativan drip +/- PSE. Abdominal imaging was concerning for possible acute cholecystitis. There was inflammation noted in the colon, bladder, distal esophagus, and pancreas as well. His abdomen is benign on exam; however, unable to obtain ROS. LFTs are stable and WBC is improving. Hgb stable. He is on zosyn. Continue lactulose enemas. Wean ativan. Continue thiamine, folate. NPO on clinimix. Recommend advancing diet once mental status improves. Will follow with you. MTDD
--- NOTE | 2019-08-12 16:20 | PROGRESS NOTE ---
DATE: 08/12/2019 SUBJECTIVE: This morning Mr. De Guzman seems slightly more alert and a little bit more cooperative than days before. His Ativan drip has been turned off. OBJECTIVE: Vital signs: Blood pressure is 155/82, pulse of 107, respirations 20, temperature 98.4 degrees. The patient is saturating 92 to 95 percent on room air. General: Mr. De Guzman is a 59-year-old gentleman. He is in bed no distress. HEENT: Mucosa is pink, slightly dry. Anicteric. Acyanotic. Neck: Supple. Chest: Good air entry bilateral. There was no crepitations. No rhonchi. There is an old sternotomy scar on the anterior chest wall. Cardiovascular: Regular rate and rhythm. No murmurs, no rubs, no gallops. GI: Abdomen soft. Bowel sounds present. No hepatosplenomegaly. Extremities: No pedal edema. Distal pulses are present. The right arm distally including the pre cubital fossa is remarkably swollen is tender and it has mild erythematous changes. There was an IV which was still being functional. There is also mildly erythematous changes over the right hand where an IV used to be. : Borrego catheter is still in place. 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 He mumble some non comprehensive worse. He is able to move all extremities and he was able to open his mouth and stick out his tongue upon command. LABORATORY DATA: WBC is down to 13.15, hemoglobin is 7.9, platelet count of 139,000. Chemistry is also reviewed, potassium is 3.4. MICROBIOLOGY: Urine culture is negative blood culture still pending. ASSESSMENT: 1. Massive upper gastrointestinal bleed on admission secondary to esophageal variceal bleed. The patient is status post esophagogastroduodenoscopy with esophageal banding. 2. Anemia of acute blood loss from gastrointestinal bleed. The patient is status post 1 packed red blood cell transfusion. Hemoglobin and hematocrit is stable. The hemoglobin has been dropping, but I think part of it is because of dilution. 3. Altered mental status from global encephalopathy, presumably from alcohol withdrawal delirium. However, hepatic encephalopathy and possible vitamin deficiencies and infectious causes could also be contributing to this. 4. Alcohol use and abuse prior to hospitalization noted. 5. Cholelithiasis versus gallbladder polyp with questionable cholecystitis. Surgery is on board. 6. Acute pancreatitis on imaging studies. Lipase was normal. 7. History of prostate cancer aware. 8. Electrolyte abnormality. We will continue to replace. 9. Sepsis syndrome. We will continue with the current antimicrobial coverage until blood cultures are known. 10. Right forearm IV fluid infiltration with possible thrombophlebitis. The nurse has been notified. The line will be discontinued. We will use warm compressors for now and continue to monitor this. cc: Abrahan Park MD
[2019-08-13] MEDS: ATIVAN IV PRN ×8 (02:10→23:26)
[2019-08-13] MEDS: ZOSYN 3.375 GM in NS 50 ML IV SCH ×4 (02:16→20:28)
[2019-08-13 04:47] LABS: BASO# 0.09 X1000 (0.0-0.2); BASO% 0.7 % (0.0-0.8); EOS# 0.35 X1000 (0.0-0.7); EOS% 2.8 % (0.0-10.0); HEMATOCRIT 23.9 % (42.0-52.0); HEMOGLOBIN 7.8 g/dL (14.0-18.0); IMM GRAN# 0.05 X1000 (0.0-0.04); IMM GRAN% 0.4 % (0.0-0.5); LYMPH# 2.61 X1000 (1.2-3.4); LYMPH% 20.8 % (20.5-51.1); MCH 32.2 PG (27-31); MCHC 32.6 g/dL (33-37); MCV 98.8 FL (81-99); MONO# 1.91 X1000 (0.11-0.59); MONO% 15.3 % (1.7-9.3); MPV 10.4 FL (7.4-10.4); NEUT# 7.51 X1000 (1.4-6.5); PLT 148 X1000 (130-400); RBC 2.42 XMIL (4.7-6.1); RDW 17.8 % (11.5-14.5); WBC 12.52 X1000 (4.8-10.8)
[2019-08-13 05:12] LABS: AGAP 8; ALBUMIN 2.6 g/dL (3.5-5.0); BUN 13 mg/dL (8-22); CALCIUM 7.9 mg/dL (8.8-10.2); CHLORIDE 114 mmol/L (98-107); COSMO 284; CREATININE 0.6 mg/dL (0.7-1.2); ESTIMATED GFR > 60; GLUCOSE 140 mg/dL (70-104); PHOSPHORUS 2.5 mg/dL (2.7-4.5); POTASSIUM 3.7 mmol/L (3.5-5.1); SODIUM 141 mmol/L (136-145); TCO2 19 mmol/L (25-35)
[2019-08-13] MEDS: VASOTEC IV SCH (05:13)
[2019-08-13] MEDS: CLINIMIX E 4.25%-5% SOLUTION 1,000 ML IV SCH ×3 (06:03→17:41)
[2019-08-13] MEDS: THIAMINE 100 MG in NS 50 ML IV SCH (06:07)
[2019-08-13] MEDS: FOLIC ACID 1 MG in NS 50 ML IV SCH (06:07)
[2019-08-13] MEDS ORDERED: POTASSIUM PHOSPHATE 40 MEQ in NS 250 ML IV ONE (07:36)
[2019-08-13] MEDS: FERROUS SULFATE PO SCH ×2 (08:44→21:39)
[2019-08-13] MEDS: FOLIC ACID PO SCH (08:45)
[2019-08-13] MEDS: NEURONTIN PO SCH ×2 (08:45→20:28)
[2019-08-13] MEDS: VITAMIN B-1 PO SCH (08:46)
[2019-08-13] MEDS: THERA M PLUS PO SCH (08:46)
[2019-08-13] MEDS: PROTONIX IV SCH ×2 (09:43→20:28)
[2019-08-13] MEDS: NON-FORMULARY MED PR SCH ×3 (09:43→17:41)
[2019-08-13] MEDS: APRESOLINE IV PRN ×2 (09:44→17:48)
--- NOTE | 2019-08-13 11:28 | PROGRESS NOTE ---
DATE: 08/13/2019 SUBJECTIVE: This morning Mr. De Guzman looks slightly agitated in the bed. The ankle restraints have been removed. He is still point restraints on the upper extremities. Per the nursing staff, no changes. OBJECTIVE: Vital signs: Blood pressure is 146/47, pulse 55, respirations 26, temperature 97.1 degrees, patient is saturating 98% on room air. General: Mr. De Guzman is a 59-year-old gentleman. He is in bed, no distress. HEENT: Mucosa is pink and moist. Anicteric. Acyanotic. Neck: Supple. Chest: Clear to auscultation. No crepitations. No rhonchi. Cardiovascular: Regular rate and rhythm. No murmurs, no rubs, no gallops. There is an old sternotomy scar on the anterior chest wall. Gastrointestinal: Abdomen is soft, nontender. Bowel sounds present. Extremities: No pedal edema. Distal pulses are present. The right upper extremity swelling seems slightly better. Central nervous system: Patient is awake, slightly agitated and sweaty. Patient moves all extremities. LABORATORY DATA: WBC is 12.52, hemoglobin is 7.8, platelet count of 148,000. Chemistry is also reviewed. Phosphorus is 2.5. Rest of chemistry is unremarkable. MICROBIOLOGY DATA: Blood cultures have been negative. Urine culture is negative. INTAKE AND OUTPUT: Urine output was 935. The patient is currently positive balance 15,685. ASSESSMENT AND PLAN: 1. Massive upper gastrointestinal bleed on admission secondary to esophageal variceal bleed. The patient is status post esophagogastroduodenoscopy with esophageal varix banding, today is day 6 post procedure. 2. Anemia of acute blood loss. Patient is status post 1 packed red blood cells transfusion. Hemoglobin and hematocrit is fairly stable. He is on iron supplements. 3. Altered mental status, presumably from alcohol withdrawal delirium. However, hepatic encephalopathy and other possible etiologies are also been considered. We will continue with the protocol for the alcohol withdrawal. 4. Alcohol use and abuse prior to hospitalization. 5. Cholelithiasis versus gallbladder polyp with questionable cholecystitis. Surgery is on board. 6. Acute pancreatitis on imaging. Lipase normal. 7. History of pancreatic cancer. 8. Electrolyte abnormality. We will continue to replace. 9. Sepsis syndrome. Blood cultures and urine cultures are currently negative. The patient is on Augmentin. We will retained this for 5 days for the gastrointestinal bleed and hopefully will be able to discontinue it. 10. Left forearm thrombophlebitis, improving. cc: Abrahan Park MD
[2019-08-13] MEDS ORDERED: HALDOL IV ONE (18:21)
--- NOTE | 2019-08-13 23:20 | PROVIDER PROGRESS NOTE ---
Progress Note S: No acute overnight events. Unable to obtain ROS given AMS. O: Last Vital Signs Temp 99.4 F 08/13/19 20:00 Pulse 101 H 08/13/19 20:00 Resp 20 08/13/19 20:00 BP 161/102 08/13/19 20:00 Pulse Ox 96 08/13/19 20:00 Height 6 ft 2 in Weight 188 lb General: He is confused and unable to assess. HEENT: Pale conjunctivae. Mild icterus. PERRL. Neck: Supple. Lungs: Wheezing heard in the anterior lobes. Cardiovascular: The patient is tachycardic. Abdomen: Soft, non distended. Active bowel sounds heard in all 4 quadrants. Extremities: No clubbing, no cyanosis, no edema. Pedal pulses 2+ present bilaterally. Neurologic: Confused. Unable to assess. LABS: 08/13/19 08/13/19 04:40 04:40 WBC 12.52 H Hgb 7.8 L Plt Count 148 Sodium 141 Potassium 3.7 Chloride 114 H Carbon Dioxide 19 L Anion Gap 8 BUN 13 Creatinine 0.6 L Glucose 140 H Calcium 7.9 L Phosphorus 2.5 L Albumin 2.6 L MPRESSION AND PLAN 1. Bleeding esophageal varices. 2. Blood loss anemia. 3. Decompensated alcoholic cirrhosis. 4. Alcohol withdrawal. 5. Questionable hepatic encephalopathy. 6. Acute cholecystitis on imaging. 7. Elevated liver function tests . A/P: Mr. Amadou De Guzman is a 59 year old man who presented with UGIB from bleeding varices s/p EGD and banding. His course has been complicated by DTs s/p ativan drip +/- PSE. Abdominal imaging was concerning for possible acute cholecystitis. There was inflammation noted in the colon, bladder, distal esophagus, and pancreas as well. His abdomen is benign on exam; however, unable to obtain ROS. LFTs are stable and WBC is improving. Hgb stable. He is on zosyn. Continue lactulose enemas. Wean ativan. Continue thiamine, folate. NPO on clinimix. Recommend advancing diet once mental status improves. Will follow with you.
[2019-08-14] MEDS: ZOSYN 3.375 GM in NS 50 ML IV SCH ×4 (02:44→20:30)
[2019-08-14] MEDS: CLINIMIX E 4.25%-5% SOLUTION 1,000 ML IV SCH ×3 (02:45→16:17)
[2019-08-14] MEDS: ATIVAN IV PRN (03:26)
[2019-08-14 06:33] LABS: BASO# 0.05 X1000 (0.0-0.2); BASO% 0.4 % (0.0-0.8); EOS# 0.11 X1000 (0.0-0.7); EOS% 0.9 % (0.0-10.0); HEMATOCRIT 25.1 % (42.0-52.0); IMM GRAN# 0.04 X1000 (0.0-0.04); IMM GRAN% 0.3 % (0.0-0.5); LYMPH# 2.14 X1000 (1.2-3.4); LYMPH% 18.4 % (20.5-51.1); MCH 31.6 PG (27-31); MCHC 31.9 g/dL (33-37); MCV 99.2 FL (81-99); MONO# 2.18 X1000 (0.11-0.59); MONO% 18.7 % (1.7-9.3); MPV 11.2 FL (7.4-10.4); NEUT# 7.14 X1000 (1.4-6.5); NEUT% 61.3 % (42.2-75.2); PLT 184 X1000 (130-400); RBC 2.53 XMIL (4.7-6.1); RDW 17.5 % (11.5-14.5); WBC 11.66 X1000 (4.8-10.8)
[2019-08-14 07:15] LABS: EOS 2 % (1-10); LYMPHS 18 % (21-51); MONO 12 % (1-9); SEGS 54 % (42-75)
[2019-08-14 07:28] LABS: AGAP 10; ALB/GLOB RATIO 0.6; ALBUMIN 2.9 g/dL (3.5-5.0); ALKALINE PHOSPHATASE 105 U/L (32-122); BUN 16 mg/dL (8-22); CALCIUM 8.6 mg/dL (8.8-10.2); CHLORIDE 115 mmol/L (98-107); COSMO 288; CREATININE 0.7 mg/dL (0.7-1.2); ESTIMATED GFR > 60; GLUCOSE 134 mg/dL (70-104); GOT 104 U/L (10-34); GPT 35 U/L (10-44); POTASSIUM 4.1 mmol/L (3.5-5.1); SODIUM 143 mmol/L (136-145); TCO2 18 mmol/L (25-35); TOTAL BILIRUBIN 3.45 mg/dL (0.20-1.00); TOTAL PROTEIN 7.5 g/dL (6.3-8.3)
[2019-08-14] MEDS: PROTONIX IV SCH ×2 (09:16→20:30)
[2019-08-14] MEDS: VITAMIN B-1 PO SCH (09:17)
[2019-08-14] MEDS: THERA M PLUS PO SCH (09:17)
[2019-08-14] MEDS: FERROUS SULFATE PO SCH ×2 (09:17→20:30)
[2019-08-14] MEDS: FOLIC ACID PO SCH (09:17)
[2019-08-14] MEDS: LIBRIUM PO PRN (09:17)
[2019-08-14] MEDS: NEURONTIN PO SCH ×2 (09:17→20:30)
[2019-08-14] MEDS: NON-FORMULARY MED PR SCH ×3 (09:21→16:17)
--- NOTE | 2019-08-14 17:00 | PROGRESS NOTE ---
DATE: 08/14/2019 SUBJECTIVE: Mr. De Guzman this morning continues to be remarkably lethargic. Per the nursing staff, he has been calmer today than days before. The girlfriend was at the bedside at the time of the encounter. OBJECTIVE: Vital signs: Blood pressure is 161/73, pulse of 122, respirations 22, temperature is 99.0 degrees. General: Mr. De Guzman is a 59-year-old gentleman. He is in bed, no distress. HEENT: Mucosa is pink and moist. Anicteric. Acyanotic. Neck: Supple. Chest: Good air entry bilaterally. No crepitations. No rhonchi. Cardiovascular: Regular rate and rhythm. No murmurs. No rubs. No gallops. GI: Abdomen is soft. Bowel sounds present. Extremities: No pedal edema. 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 He is arousable but does not follow commands. Moves all extremities. LABORATORY DATA: So far blood cultures have been 48 hours negative. ASSESSMENT: 1. Massive upper gastrointestinal bleed secondary to esophageal varix. The patient is status post EGD with esophageal varix banding. Today is day 7. 2. Anemia of acute blood loss. Patient is status post 1 PRBC transfusion. Hemoglobin and hematocrit are stable. The patient has been started on iron supplements. 3. Altered mental status, presumably from alcohol withdrawal. Other possible etiologies could be hepatic encephalopathy, vitamin deficiencies, and infectious. So far blood cultures have been negative. 4. Alcohol use and abuse prior to hospitalization. 5. Cholelithiasis versus gallbladder polyp, questionable cholecystitis. Surgery is on board. 6. Acute pancreatitis on imaging. Lipase was normal. 7. History of electrolyte abnormality. 8. Sepsis syndrome. So far blood cultures have been negative. We think this is presumably all related to the GI bleed. 9. Left forearm thrombophlebitis, improved. cc: Abrahan Park MD
--- NOTE | 2019-08-14 23:48 | PROVIDER PROGRESS NOTE ---
Progress Note S: Patient was awake and agitated overnight. No recurrent bleeding. Sleeping this AM. O: Last Vital Signs Temp 99.4 F 08/14/19 20:00 Pulse 102 H 08/14/19 20:00 Resp 20 08/14/19 20:00 BP 140/69 08/14/19 20:00 Pulse Ox 97 08/14/19 20:00 Height 6 ft 2 in Weight 188 lb GEN: somnolent, NAD HEENT: anicteric, MMM NECK: supple, no JVD PULM: CTAB, anteriorly ABD: soft, NT/ND, BS present EXT: no cce NEURO: difficult to assess, given somnolence LABS: 08/14/19 08/14/19 08/14/19 06:15 06:15 06:15 WBC 11.66 H Hgb 8.0 L Plt Count 184 Sodium 143 Potassium 4.1 Chloride 115 H Carbon Dioxide 18 L BUN 16 Creatinine 0.7 Glucose 134 H Total Bilirubin 3.45 H AST 104 H ALT 35 Alkaline Phosphatase 105 Ammonia 40 Total Protein 7.5 Albumin 2.9 L Mr. Amadou De Guzman is a 59 year old man who presented with UGIB from bleeding varices s/p EGD and banding. His course has been complicated by DTs s/p ativan drip +/- PSE. Abdominal imaging was concerning for possible acute cholecystitis. There was inflammation noted in the colon, bladder, distal esophagus, and pancreas as well. His abdomen is benign on exam; however, unable to obtain ROS. LFTs and WBC is improving. Hgb stable. He is on zosyn. Continue lactulose enemas. Wean ativan. Continue thiamine, folate. NPO on clinimix. Recommend advancing diet once mental status improves. Will follow with you. IMPRESSION AND PLAN 1. Bleeding esophageal varices. 2. Blood loss anemia. 3. Decompensated alcoholic cirrhosis. 4. Alcohol withdrawal. 5. Questionable hepatic encephalopathy. 6. Acute cholecystitis on imaging. 7. Elevated liver function tests .
[2019-08-15] MEDS: ATIVAN IV PRN ×4 (00:05→20:31)
[2019-08-15] MEDS: LIBRIUM PO PRN (00:05)
[2019-08-15] MEDS: ZOSYN 3.375 GM in NS 50 ML IV SCH ×4 (02:03→20:29)
[2019-08-15] MEDS: CLINIMIX E 4.25%-5% SOLUTION 1,000 ML IV SCH ×3 (02:03→18:24)
--- NOTE | 2019-08-15 07:18 | GENERAL SURGERY PROGRESS NOTE ---
DATE: 08/15/2019 The patient seems to be doing about the same. Nursing staff reports that he is still significantly altered. Still no real reports of pain in the right upper quadrant but again, he is very difficult to assess. At this point, we will continue to follow. cc: Mike Mendez MD
[2019-08-15] MEDS: PROTONIX IV SCH ×2 (08:07→20:30)
[2019-08-15] MEDS: FERROUS SULFATE PO SCH ×2 (08:40→20:30)
[2019-08-15] MEDS: FOLIC ACID PO SCH (08:41)
[2019-08-15] MEDS: NON-FORMULARY MED PR SCH ×3 (08:41→17:54)
[2019-08-15] MEDS: NEURONTIN PO SCH ×2 (08:41→20:30)
[2019-08-15] MEDS: VITAMIN B-1 PO SCH (08:42)
[2019-08-15] MEDS: THERA M PLUS PO SCH (08:42)
[2019-08-15 08:46] LABS: HEMATOCRIT 24.1 % (42.0-52.0); HEMOGLOBIN 7.6 g/dL (14.0-18.0); MCH 31.7 PG (27-31); MCHC 31.5 g/dL (33-37); MCV 100.4 FL (81-99); MPV 11.3 FL (7.4-10.4); RBC 2.4 XMIL (4.7-6.1); RDW 17.7 % (11.5-14.5); WBC 10.53 X1000 (4.8-10.8)
[2019-08-15 09:22] LABS: AGAP 8; ALBUMIN 2.5 g/dL (3.5-5.0); BUN 15 mg/dL (8-22); CALCIUM 8.3 mg/dL (8.8-10.2); CHLORIDE 115 mmol/L (98-107); COSMO 285; CREATININE 0.7 mg/dL (0.7-1.2); ESTIMATED GFR > 60; GLUCOSE 124 mg/dL (70-104); MAGNESIUM 1.9 mg/dL (1.5-2.7); PHOSPHORUS 2.4 mg/dL (2.7-4.5); POTASSIUM 4.1 mmol/L (3.5-5.1); SODIUM 142 mmol/L (136-145); TCO2 19 mmol/L (25-35)
--- NOTE | 2019-08-15 09:25 | Diag Imaging Result Doc PS360 ---
EXAM: CT HEAD W/O CONTRAST 08/15/2019 HISTORY: encephalopathy TECHNIQUE: This exam was performed using automated exposure control, adjustment of mA or kV according to patient size, and/or use of iterative reconstruction technique. COMMENT: There is mild generalized cerebral atrophy. There is no evidence of hydrocephalus, mass, bleed, or abnormal extra-axial fluid collection. Compared to 01/08/2015 there has been no significant change. The calvarium is intact. There is mucosal thickening present in the posterior ethmoid air cell on the left. Otherwise the visualized paranasal sinuses are clear. IMPRESSION: No evidence of acute intracranial disease. Minimal ethmoid sinusitis. Electronically signed by Hernan Graff 08/15/2019 9:23 AM
--- NOTE | 2019-08-15 12:50 | PROGRESS NOTE ---
DATE: 08/15/2019 SUBJECTIVE: This morning, Mr. De Guzman look a little bit more alert than yesterday. A senior brother of his was at the bedside with another female executive vice president business development. No new complaints. OBJECTIVE: Vital signs: Blood pressure is 157/76, pulse of 100, respirations 24, temperature is 100.3. General: Mr. De Guzman is a 59-year-old gentleman. He is in bed. He did not seems to be in any cardiopulmonary distress. HEENT: Mucosa is pink and moist. Anicteric. Acyanotic. Neck: Supple. There is no JVD. Respiratory: There is good air entry bilateral. No crepitations. No rhonchi. Cardiovascular: Slightly tachycardic but no murmurs, no rubs, no gallops, and it is regular. Abdomen: Soft. Bowel sounds present. No hepatosplenomegaly. Extremities: No pedal edema. Distal pulses present. 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 Today, he was able to mumble some clear words. According to the nurse, he was able to state his name, where he was clearly early on with her. LABORATORY DATA: WBC is down to 10.52, hemoglobin is 7.6, platelet count of 197,000. Chemistry is also reviewed, for the most part unremarkable. Phosphorus is 2.4. The patient is on supplement. ASSESSMENT: 1. Anemia of acute blood loss secondary to upper gastrointestinal bleed due to esophageal varix. Patient is status post EGD with varix banding. He is also status post 1 packed red blood cell transfusion. Hemoglobin and hematocrit are fairly stable. The patient is not showing any obvious signs of ongoing bleed. 2. Altered mental status, presumably from alcohol withdrawal. We are going to continue with management. The patient did have mildly elevated ammonium level initially which makes hepatic encephalopathy also a possible diagnosis. 3. Alcohol use and abuse prior to hospitalization. 4. Cholelithiasis versus gallbladder polyp. There is a questionable cholecystectomy. However, patient denies any pain on physical exams. The patient has been evaluated on a daily basis by Surgery as well. 5. Acute pancreatitis mentioned on image initial imaging. 6. Electrolyte abnormality. We will continue to replace. 7. Sepsis syndrome. So far blood cultures have been 48 hours negative. Urine culture has also been negative. We think this is all related to the alcohol withdrawal. 8. Left forearm thrombophlebitis, improved. PLAN: So in general, I think Mr. De Guzman is fairly stable. He underwent a CT scan of the head without contrast this morning which shows no evidence of acute intracranial disease, some minimum ethmoid sinusitis. He is on antimicrobial. We are going to continue supporting him. He is on Clinimix with lipid infusion. As his mentation gets better, we are going to start feeding him and get Physical Therapy to also see him. cc: Abrahan Park MD
[2019-08-15] MEDS: LIPOSYN 20% 500 ML IV SCH (13:34)
--- NOTE | 2019-08-15 14:01 | GASTROENTEROLOGY PROGRESS NOTE ---
DATE: 08/15/2019 SUBJECTIVE: Mr. De Guzman is a 59-year-old male. He was much more alert today. He responded to his name. Family is at the bedside. The patient was able to nod his head when asked whether he had any pain around his abdominal area. He is out of his restraints. He is having positive bowel movements. OBJECTIVE: Vital Signs: Temperature 99.0 degrees, pulse 97, respirations 23, blood pressure 158/75, oxygen saturation 99% on Ventimask. The patient's weight is 188 pounds. BMI is 24.1 kg/m2. General: He is still confused, but he responds when his name is called out. HEENT: Pale conjunctivae, no icterus. PERRL. Neck: Supple. Lungs: Clear to auscultation. Cardiovascular: The patient is tachycardic and tachypneic. Abdomen: Abdomen is soft, nontender, nondistended. Active bowel sounds heard in all 4 quadrants. Extremities: No clubbing, no cyanosis, no edema. Pedal pulses 2+ present bilaterally. Neurologic: The patient is awake, but confused. LABS: WBCs of 10.53, RBC 2.40, hemoglobin 7.6, hematocrit is 24.1, platelet count is 197. Sodium 142, potassium 4.1, chloride 115, carbon dioxide 19, anion gap is 8. BUN 15, creatinine is 0.7, glucose 124, calcium 8.3, phosphorus 2.4, magnesium 1.9. Total bilirubin 3.45, AST 104, ALT 35, alkaline phos 105, albumin is 2.5. IMAGING: The patient's head CT showed no evidence of acute intracranial disease. Minimal ethmoid sinusitis. IMPRESSION AND PLAN: 1. Esophageal varices. 2. Anemia. 3. Alcoholic cirrhosis. 4. Alcohol withdrawal and encephalopathy. PLAN: Mr. De Guzman is a 59-year-old male, who has a history of alcohol abuse. Gastroenterology has been following him for his upper GI bleed. An EGD was done on 08/07/2019, he had esophageal varices and banding was performed. As per the nurses, no further bleeding \ episodes have been noted. The patient is out of his Ativan drip and he is out of his restraints. The patient is still confused. His LFTs have been trending downwards. He is currently on antibiotic Zosyn. He is receiving Protonix 40 mg IV twice a day. The patient is still unable to tolerate any p.o. intake. He is on Clinimix at 75 ml/hr and lipids @ 7 m/hr for his nutrition.. The patient is currently on full liquid diet. His diet can be advanced when his mental status improves. We will continue to monitor the patient and follow the plan of care per PCP. This plan was discussed with Dr. Ding. Please call us for any further questions or concerns. Dictated by LIVIA Pryor for Elvis Ding MD cc: Elvis Ding MD I have seen and examined the patient myself and I agree with the above plan of care. Please call us with any further questions or concerns. MTDJimbo
[2019-08-15] MEDS: HALDOL IV PRN ×2 (18:23→23:50)
[2019-08-15] MEDS: LOPRESSOR IV SCH ×2 (18:23→23:50)
[2019-08-15] MEDS: LIBRIUM PO SCH (20:30)
[2019-08-16] MEDS: ZOSYN 3.375 GM in NS 50 ML IV SCH ×4 (02:00→20:36)
[2019-08-16] MEDS: LOPRESSOR IV SCH ×4 (05:42→21:33)
[2019-08-16] MEDS: CLINIMIX E 4.25%-5% SOLUTION 1,000 ML IV SCH ×3 (05:42→23:23)
--- NOTE | 2019-08-16 07:19 | GENERAL SURGERY PROGRESS NOTE ---
DATE: 08/16/2019 Discussed case with the nurse. The patient is hallucinating but seems to be more interactive. Still no complaints of right upper quadrant pain. His laboratories have been reviewed and they seem to be improving. From a surgical point of view, I do not think he has any cholecystitis. We will follow peripherally. cc: Mike Mendez MD
[2019-08-16] MEDS: PROTONIX IV SCH ×3 (07:57→20:36)
[2019-08-16] MEDS: THERA M PLUS PO SCH ×2 (07:58→10:21)
[2019-08-16] MEDS: HALDOL IV PRN ×3 (07:58→20:36)
[2019-08-16] MEDS: NEURONTIN PO SCH ×3 (07:58→21:27)
[2019-08-16] MEDS: FOLIC ACID PO SCH ×2 (07:58→09:36)
[2019-08-16] MEDS: FERROUS SULFATE PO SCH ×3 (07:58→21:27)
[2019-08-16] MEDS: VITAMIN B-1 PO SCH ×2 (07:58→10:21)
[2019-08-16] MEDS ORDERED: NS 250 ML ONE (09:31)
[2019-08-16] MEDS: NON-FORMULARY MED PR SCH ×3 (09:36→16:20)
[2019-08-16] MEDS ORDERED: HALDOL IM ONE (09:37)
[2019-08-16 09:42] LABS: INR 1.51; PROTIME 18.5 Seconds (11.0-16.0)
--- NOTE | 2019-08-16 12:21 | GASTROENTEROLOGY PROGRESS NOTE ---
DATE: 08/16/2019 SUBJECTIVE: Mr. De Guzman is a 59-year-old male resting in bed. He is much more alert today. He was able to tell his name, his birthday, and where he was, but he still has periods of confusion. He is on soft restraints on his his hands and his legs. The patient has denied any abdominal pain, when assessed he nodded his head. As per the nursing staff, patient has not had a bowel movement today. He is on a full liquid diet, but is not able to tolerate his PO intake. OBJECTIVE: Vital Signs: Temperature 98 degrees, pulses 82, respirations 31, blood pressure 154/76, and oxygen saturation 97% on room air. The patient's weight is 188 pounds. BMI is 24.1 kg/m2. General: The patient is able to tell his name, date of , and where he is, has periods of confusion. HEENT: Pale conjunctivae. No icterus PERRL. Neck: Supple. Lungs: Clear to auscultation. Cardiovascular: Regular rate and rhythm. The patient is tachypneic. Abdomen: Soft, nontender, and nondistended. Active bowel sounds heard in all 4 quadrants. Extremities: No clubbing, no cyanosis, no edema. Pedal pulses 2+ present bilaterally. Neurologic: The patient is awake and alert. LABORATORY DATA: Hematology is from 08/15. WBC 10.53, RBC 2.40, hemoglobin 7.6, hematocrit 24.1, and platelet count is 197,000. PT is 18.5, INR is 1.51. Chemistries are from 08/15. Sodium is 142, potassium is 4.1, chloride is 115, carbon dioxide 19, anion gap is 8, BUN is 15, creatinine is 0.7, glucose 124, calcium 8.3, phosphorus 2.4, magnesium 1.9. IMAGING: Head CT yesterday showed no evidence of acute intracranial disease. Minimal ethmoid sinusitis. IMPRESSION AND PLAN: - Bleeding esophageal varices - Acute blood loss anemia - Decompensated alcoholic cirrhosis - Hepatic encephalopathy vs delirium - Acute cholecystitis on imaging - Coagulopathy - Alcohol abuse PLAN: Mr. De Guzman is a 59-year-old male with a history of alcohol abuse. GI has been following him for the upper GI bleed. As per the nursing staff, the patient has not had any further bleeding episodes. An EGD was performed, and he had esophageal varices and banding was done. The patient is out of his Ativan drip, he is much more responsive with periods of confusion. The patient is currently receiving antibiotics Zosyn at 100 mL/h. He is on Protonix 40 mg IV twice a day. The patient is on folic acid 1 mg p.o. and vitamin B 100 mg p.o. As per the nursing staff, the patient is not able to tolerate the p.o. intake. He is on Clinimix 75 mL for his nutrition and lipids 7 mL per hour. We will continue to monitor the patient, and follow the plan of care per PCP. This plan was discussed with Dr. Valdez. Please call us for any further questions or concerns. Dictated by LIVIA Pryor for Todd Valdez MD Physician Attestation I have seen and examined the patient. I have discussed and reviewed the note by Anastasia BHAKTA and agree with findings and plan as documented. Made changes to note above. Recommend minimizing sedating meds. MTDD
--- NOTE | 2019-08-16 12:33 | PROGRESS NOTE ---
DATE: 08/16/2019 SUBJECTIVE: I have seen and examined Mr. De Guzman today. He has no new complaints. He actually was able to tell me that he was doing better. He was getting a PICC line placed. OBJECTIVE: Vital signs: Blood pressure 154/76, pulse of 82, respirations 22, and temperature 99 degrees. Patient was saturating 97% on room air. General: Mr. De Guzman is a 59-year-old gentleman. He was in bed in no distress. HEENT: Mucosa is pink and moist. Anicteric. Acyanotic. Neck: Supple. There was no JVD. Pulmonary: Chest was good air entry bilateral. There was no crepitations. No rhonchi. Cardiovascular: Regular rate and rhythm. No murmurs, no rubs, no gallops. GI: Abdomen was soft. Extremities: No pedal edema. Distal pulses are present. [employer]: Patient is lethargic, but easily arousable, and was more communicating today. LABORATORY DATA: WBC is 10.52, hemoglobin 7.6, and platelet count of 197,000. Chemistry is also reviewed. Slightly acidotic, which is non gap as from yesterday. No new chemistries for today. So far, blood cultures and urine cultures have been negative. ASSESSMENT: 1. Anemia of acute blood loss secondary to upper GI bleed from esophageal varix. Patient is status post EGD with esophageal varix banding. He is also status post 1 PRBC transfusion. Hemoglobin and hematocrit are fairly stable. We will continue to monitor. 2. Altered mental status, presumably from alcohol withdrawal. However, other possible etiologies including metabolic encephalopathy cannot be entirely ruled out. Patient's CAT scan yesterday was unremarkable. He continues for most part to be lethargic, which is kind of unusual for this protracted altered mentation just from alcohol withdrawal. We will get neurology to evaluate him as well. 3. Alcohol use and abuse prior to hospitalization. Patient has been counseled. 4. Cholelithiasis versus gallbladder polyp, questionable cholecystitis. The patient denied any pain on the gallbladder on the right upper quadrant this morning. Surgery is on board. 5. Electrolyte abnormality. We will continue to replace. 6. Left arm thrombophlebitis, improved. PLAN: So, in general, I think Mr. De Guzman is gradually looking better. He is getting a little bit more less lethargic than yesterday. However, I think he has had a very long protracted course of altered mentation. A CT scan of the brain was unremarkable. We have consulted Neurology to evaluate him as well to make sure we are not missing anything. cc: Abrahan Park MD MTDD
[2019-08-16] MEDS: LIPOSYN 20% 500 ML IV SCH (15:21)
--- NOTE | 2019-08-16 16:50 | NEUROLOGY CONSULTATION ---
DATE: 08/16/2019 REASON FOR CONSULTATION: Altered mental status. HISTORY OF PRESENT ILLNESS: This is a 59-year-old male who was admitted. 08/06/2019 with a GI bleed. He has a history of alcoholism, prostate cancer, hypertension and atrial fibrillation. He had an EGD for management of. Esophageal varices. In that regard he has been recovering. Two days after admission it looks as though he began to become more agitated. Lorazepam was started for DT prophylaxis. Three days later the lorazepam was discontinued as the patient had been more sedated. Of note, the patient's ammonia level was checked and elevated to 82 on 08/08. This began to trend down on 08/12 and normalized by 08/14, 2 days ago. BUN has been normal. AST has been trending up. The patient has been getting thiamine and multivitamins with folic acid during admission. Since the lorazepam drip was discontinued he has continued lethargic for the most time but seemed very recently to possibly have had some improvement. He has been receiving antibiotics for sepsis syndrome though cultures have been negative. Head CT obtained yesterday did not show acute findings. There was mention of mild generalized cerebral atrophy. PAST MEDICAL HISTORY: Alcoholism, prostate cancer, atrial fibrillation, hypertension, GERD. FAMILY HISTORY: Hypertension. SOCIAL HISTORY: He drinks heavily. There is report that he also smokes cigarettes. There is not a toxicology panel that I can see from this hospitalization. ALLERGIES: No known drug allergies listed in the chart. CURRENT MEDICATIONS: Reviewed in the chart. The patient was started on Librium yesterday, Neurontin 100 mg b.i.d., p.r.n. Haldol which was given this morning at 5 mg, Zosyn, thiamine. REVIEW OF SYSTEMS: Unobtainable due to patient factors. PHYSICAL EXAMINATION: Vital Signs: He had a temperature yesterday of 100.3 at 16:00 afebrile since. Blood pressure 154/76, pulse have elevated in general 90s to more often low 100s. Respirations 31. 97% on room air. Mr. De Guzman is supine in bed. He is in 4 point restraints. He states his name. He knows his sister is with him. He knows he is in the hospital but believes he is at [facility]. He stated the year and the month but did not state the date. He instead stated his birthday which is in [birth year]. He said the President was [place]. He did not know why he was here in the hospital. He was groggy and drifted asleep on 1 or 2 occasions during the encounter. He is easily waked with loud voice plus tactile stimulation to the chest. He showed me his right hand but did not follow other commands. He became agitated. There was no obvious language disturbance on brief bedside testing. Pupils are equal, round, and reactive. Gaze is conjugate. Ocular movements were full. Face is symmetric with equal grimace. Tongue was midline. I could not visualize the palate. He can hear. He responded to mild noxious stimuli in all limbs with vigorous withdrawal. Again he is in 4 point restraints. He moves his limbs equally and purposefully without obvious focal deficit. Reflexes were 1+ at the knees, and ankles. No clonus. Plantar response downgoing. 1+ at the biceps. DATA: Head CT 08/15/2019 noncontrast personally reviewed showing no acute findings. There is at least mild generalized cerebral and cerebellar atrophy. Labs reviewed in the chart. Current normal white count. Normal sodium, BUN, creatinine. Blood sugars 120s to 140s. Calcium of 8.3, phosphorus of 2.4 magnesium 1.9. AST 104 current. ALT normal. Ammonia peaked at 82 on 08/08 and normalized on 08/12. ASSESSMENT/PLAN: Global encephalopathy without definite focal feature. Likely multifactorial in the setting of recent alcohol withdrawal, medications and metabolic derangements. There is report that perhaps he has shown some clinical improvement today in terms of his level of alertness which would be reassuring. Negative head CT is also reassuring. If he does not continue to show improvement then I would recommend a routine EEG and we might consider repeat brain imaging. I would limit sedating medications as able. Thank you for the consultation. cc: Brenda Arriaga MD
[2019-08-16] MEDS: LIBRIUM PO SCH (21:27)
[2019-08-17] MEDS: HALDOL IV PRN (03:11)
[2019-08-17] MEDS: ZOSYN 3.375 GM in NS 50 ML IV SCH ×2 (03:11→08:14)
[2019-08-17] MEDS: LOPRESSOR IV SCH ×4 (03:12→21:35)
[2019-08-17 05:20] LABS: BE -5.8 mmoll (-3.0-3.0); BLOOD TYPE ARTERIAL; HCO3-(ACT) 20.4 mmoll (20.0-26.0); METHB 0.5 % (0.0-1.5); O2(CT) 11.3 mL/dL (15.0-23.0); PCO2(98.6) 24 mmHg (35-45); PO2(98.6) 110 mmHg (60-100); SAMPLE BLOOD; SAO2 100.4 % (95.0-100.0); THB 8.1 g/dL (11.5-17.4); pH(98.6) 7.46 (7.35-7.45)
[2019-08-17 05:21] LABS: MODALITY ROOM AIR
[2019-08-17] MEDS: CLINIMIX E 4.25%-5% SOLUTION 1,000 ML IV SCH ×2 (06:25→20:32)
[2019-08-17 06:33] LABS: AGAP 12; ALBUMIN 2.3 g/dL (3.5-5.0); BASO# 0.06 X1000 (0.0-0.2); BASO% 0.5 % (0.0-0.8); BUN 10 mg/dL (8-22); CALCIUM 8.2 mg/dL (8.8-10.2); CHLORIDE 110 mmol/L (98-107); COSMO 275; CREATININE 0.6 mg/dL (0.7-1.2); EOS% 2.4 % (0.0-10.0); ESTIMATED GFR > 60; GLUCOSE 111 mg/dL (70-104); HEMATOCRIT 23.9 % (42.0-52.0); HEMOGLOBIN 7.6 g/dL (14.0-18.0); IMM GRAN# 0.04 X1000 (0.0-0.04); IMM GRAN% 0.3 % (0.0-0.5); LYMPH# 1.71 X1000 (1.2-3.4); LYMPH% 13.8 % (20.5-51.1); MAGNESIUM 1.9 mg/dL (1.5-2.7); MCH 31.3 PG (27-31); MCHC 31.8 g/dL (33-37); MCV 98.4 FL (81-99); MONO# 1.86 X1000 (0.11-0.59); MPV 11.7 FL (7.4-10.4); NEUT# 8.45 X1000 (1.4-6.5); PHOSPHORUS 2.9 mg/dL (2.7-4.5); PLT 223 X1000 (130-400); RBC 2.43 XMIL (4.7-6.1); RDW 16.8 % (11.5-14.5); SODIUM 138 mmol/L (136-145); TCO2 16 mmol/L (25-35); WBC 12.42 X1000 (4.8-10.8)
[2019-08-17 06:39] LABS: ALLEN TEST YES
--- NOTE | 2019-08-17 07:39 | Diag Imaging Result Doc PS360 ---
CHEST-PORTABLE - 08/17/2019 INDICATION: dyspnea COMPARISON: 09/30/2018 FINDINGS: Lung volumes are much lower. There are new dense bilateral upper lobe infiltrates. There is a right PICC line in good position with the catheter tip at the lower SVC. Heart size is borderline enlarged. IMPRESSION: Dense bilateral upper lobe infiltrates compatible with pneumonia. Electronically signed by Abram Hurley 08/17/2019 7:37 AM
[2019-08-17] MEDS: PROTONIX IV SCH ×2 (08:14→20:33)
[2019-08-17] MEDS: NEURONTIN PO SCH ×2 (09:14→20:33)
[2019-08-17] MEDS: VITAMIN B-1 PO SCH (09:14)
[2019-08-17] MEDS: FERROUS SULFATE PO SCH ×2 (09:14→20:33)
[2019-08-17] MEDS: FOLIC ACID PO SCH (09:14)
[2019-08-17] MEDS: THERA M PLUS PO SCH (09:14)
[2019-08-17] MEDS: NON-FORMULARY MED PR SCH ×3 (09:14→19:24)
[2019-08-17] MEDS ORDERED: VANCOMYCIN IV PER PHARMACY MISC SCH (11:15)
--- NOTE | 2019-08-17 11:38 | PROGRESS NOTE ---
DATE: 08/17/2019 SUBJECTIVE: This morning Mr. De Guzman was up and was eating some pudding and some puree food. He said was doing well. He was still lethargic, but he looks much better. OBJECTIVE: Vital Signs: Blood pressure is 134/66, pulse of 91, respirations were 31, temperature 98 degrees, patient was saturating 97% on room air. General: Mr. De Guzman is a 59-year-old gentleman. He is in bed. He was not in any distress. HEENT: Mucosa is pink and moist. Anicteric. Acyanotic. Neck: Supple. No JVD. Respiratory: Good air entry bilaterally. No crepitations. No rhonchi. No accessory muscle use. Cardiovascular: Regular rate and rhythm. No murmurs, no rubs, no gallops. Gastrointestinal: Abdomen is soft, nontender. Bowel sounds present. Genitourinary: Borrego catheter is in place. Extremities: No pedal edema. Distal pulses are present. Central Nervous System: Patient is still lethargic, but he was more alert today. He was sitting up and eating some. DATA: The patient's input and output, urine output was 1850 and the patient is currently positive balance 18,960. So far microbiology data shows blood cultures have been negative for 5 days. Urine culture is also negative. A chest x-ray shows dense bilateral upper lobe infiltrates compatible with pneumonia. ASSESSMENT AND PLAN: 1. Anemia of acute blood loss due to gastrointestinal bleed from esophageal varix. The patient is status post esophagogastroduodenoscopy with esophageal varix banding. He had 1 packed red blood cells transfusion as well. Hemoglobin and hematocrit are fairly stable. 2. Altered mental status, presumably from alcohol withdrawal. However, other etiologies are being treated as well including metabolic encephalopathy, infectious encephalopathy. The patient had a CT scan 3 days ago that was unremarkable. He is still quite lethargic, but seems to be gradually getting better. 3. Alcohol use and abuse prior to hospitalization with withdrawal symptoms initially. 4. Cholelithiasis versus gallbladder polyp. The patient is being followed up by surgery. 5. Electrolyte abnormality. We will continue to replace. 6. Left arm thrombophlebitis, improved. 7. Bilateral upper lobes infiltrate concerning for pneumonia. Aspiration pneumonitis is also a possibility. We are going to advise the patient the staff will observe aspiration precautions at all times. The patient has been started on cefepime and vancomycin. Mr. De Guzman was initially on Zosyn for about 5 days. cc: Abrahan Park MD
--- NOTE | 2019-08-17 12:04 | NEUROLOGY PROGRESS NOTE ---
DATE: 08/17/2019 Mr. De Guzman is in ICU bed 20. Dr. Arriaga saw Mr. De Guzman for Neurology consultation yesterday. He has a global encephalopathy attributed to ethanol misuse. He had a few metabolic findings on presentation. There has been elevated ammonia, AST, alkaline phosphatase. We do not have urine drug screen this admission. at the bedside reports he has been more alert today than yesterday. She has had more conversation with him today than yesterday. Temperature was a 100.3 degrees a few days ago, afebrile since then. Noncontrast CT was unremarkable. On exam today, he appears to be sleeping. With sustained vigorous noxious stimulation, he was awake, alert, communicated briefly with very dysarthric speech and then was quickly back to sleep when not stimulated. He moved all limbs vigorously when stimulated. neck is supple. I have no new thoughts or new suggestions and nothing to add to Dr. Arriaga's earlier recommendations. Depending on his clinical course, we might consider further imaging and EEG. Thanks for asking Neurology to see Mr. De Guzman. cc: Chetna Reid III, MD [facility] HOSPITALJimbo
[2019-08-17] MEDS: MAXIPIME 1 GM in NS 50 ML IV SCH ×2 (12:08→19:58)
--- NOTE | 2019-08-17 12:20 | GASTROENTEROLOGY PROGRESS NOTE ---
DATE: 08/17/2019 SUBJECTIVE: Mr. De Guzman is a 59-year-old male, resting in bed. The patient is much more alert today and was able to tell his name, his birthday. The patient is still having periods of confusion. He is on a soft restraint on his hands and his legs. When assessing his abdomen, he denied any pain by nodding his head. The patient is on a full liquid diet and as per the nursing staff the patient is still not able to tolerate any of his p.o. intakes. The patient had 1 bowel movement yesterday. OBJECTIVE: Vital Signs: Temperature 98 degrees, pulse 91, respirations 31, blood pressure 134/66, oxygen saturation 97% on room air. The patient's weight is 188 pounds. BMI is 24.1 kg/m2. General: He is awake, alert, but has periods of confusion. Lungs: Clear to auscultate. Neck: Supple. Lungs: Clear to auscultation. Cardiovascular: The patient is tachycardic and tachypneic. Abdomen: Soft, nontender, nondistended. Active bowel sounds heard in all 4 quadrants. Extremities: No clubbing, no cyanosis, no edema. Pedal pulses 2+ present bilaterally. Neurologic: He is awake, alert with periods of confusion. LABORATORY DATA: WBCs are 12.42, RBCs 2.43, hemoglobin is 7.6, hematocrit is 23.9, platelet count is 223,000. Sodium 138, potassium 4.0, chloride 110, carbon dioxide 16, anion gap 12, BUN 10, creatinine is 0.6, glucose 111, calcium 8.2, phosphorus 1.9. Total bilirubin is 3.45, AST is 104, ALT is 35, alkaline phosphatase is 105, albumin is 2.3. IMAGING: Chest x-ray today showed dense bilateral upper lobe infiltrate compatible with pneumonia. IMPRESSION AND PLAN: Bleeding esophageal varices s/p banding Blood loss anemia Decompensated alcoholic cirrhosis Delirium Questionable hepatic encephalopathy Acute cholecystitis on imaging Elevated liver enzymes Aspiration pneumonia PLAN: Ms. De Guzman is a 59-year-old male with a history of alcohol abuse. GI has been following for his upper GI bleed. As per the nursing staff the patient has not had any further bleeding episodes. An EGD was done esophageal varices and banding was done. He is on Protonix 40 mg IV twice a day. He is on folic acid 1 mg and thiamine 100 mg p.o. daily. Patient is also receiving Clinimix and lipids for his nutrition. He is also on antibiotic Cefepime and vancomycin for his pneumonia per PCP. We will continue to monitor the patient and follow the plan of care per PCP. This plan was discussed with Dr. Valdez. Please call us for any further questions or concerns. Dictated by LIVIA Pryor for Todd Valdez MD Physician Attestation I have seen and examined the patient. I have discussed and reviewed the note by Anastasia BHAKTA and agree with findings and plan as documented. Changes made in document above. MTDD
[2019-08-17] MEDS ORDERED: VANCOMYCIN 2.1 GM in NS 500 ML IV ONE (12:30)
[2019-08-17] MEDS: LIPOSYN 20% 500 ML IV SCH (16:46)
[2019-08-17] MEDS: SEROQUEL PO SCH (20:33)
[2019-08-17] MEDS: VANCOMYCIN 1.9 GM in NS 500 ML IV SCH (23:38)
[2019-08-18] MEDS: MAXIPIME 1 GM in NS 50 ML IV SCH ×3 (02:49→19:40)
[2019-08-18] MEDS: LOPRESSOR IV SCH ×4 (04:04→21:10)
[2019-08-18 07:05] LABS: HEMOGLOBIN 7.7 g/dL (14.0-18.0); MCHC 32.1 g/dL (33-37); MCV 99.6 FL (81-99); MPV 11.5 FL (7.4-10.4); RBC 2.41 XMIL (4.7-6.1); RDW 16.9 % (11.5-14.5); WBC 12.05 X1000 (4.8-10.8)
[2019-08-18 07:17] LABS: AGAP 9; ALB/GLOB RATIO 0.6; ALBUMIN 2.4 g/dL (3.5-5.0); ALKALINE PHOSPHATASE 117 U/L (32-122); BUN 10 mg/dL (8-22); CALCIUM 8.2 mg/dL (8.8-10.2); CHLORIDE 110 mmol/L (98-107); COSMO 276; CREATININE 0.6 mg/dL (0.7-1.2); ESTIMATED GFR > 60; GLUCOSE 118 mg/dL (70-104); GOT 66 U/L (10-34); GPT 30 U/L (10-44); MAGNESIUM 1.9 mg/dL (1.5-2.7); PHOSPHORUS 2.3 mg/dL (2.7-4.5); POTASSIUM 3.6 mmol/L (3.5-5.1); SODIUM 138 mmol/L (136-145); TCO2 19 mmol/L (25-35); TOTAL BILIRUBIN 1.81 mg/dL (0.20-1.00); TOTAL PROTEIN 6.6 g/dL (6.3-8.3)
--- NOTE | 2019-08-18 09:23 | PROGRESS NOTE ---
DATE: 08/18/2019 SUBJECTIVE: The patient seems to be stable. He is sleepy, but arousable. His is at the bedside. He is really weak. He is able to say his name, date of , and he also is able to say his 's name. Hemoglobin has been stable. Vital signs are stable. We put him on a liquid diet, and he is on Clinimix and also lipids through his vein. For now, will continue with the same management, but I need Physical Therapy and Occupational Therapy to see this patient. OBJECTIVE: Vital Signs: Temperature 99.8 degrees, pulse on the monitor 99, respiratory rate 23, blood pressure 135/47, oxygen saturation 95% on room air. HEENT: Head normocephalic. No trauma. PERRLA. Neck: Supple. No JVD. No masses. Central trachea. Chest: Clear to auscultation. No wheezing. No rales. Abdomen: Soft. Some tenderness to palpation at the level of the epigastric area. Extremities: No edema, no clubbing, no cyanosis. Neurological: The patient is sleepy/lethargic, but arousable. I was able to wake him up completely with the help of his . He was able to say her name and date of . He is oriented to place and time. He seems to be really weak. I have requested Physical Therapy and Occupational Therapy to evaluate this patient. LABORATORY DATA: WBC 12.05, hemoglobin 7.7, hematocrit 24, platelet count 227,000. Sodium 136, potassium 3.6, chloride 110, bicarbonate 19, BUN 10, creatinine 0.6, glucose 118, calcium 8.2. Phosphorus 2.3. AST 66, ALT 30, alkaline phosphatase 117, albumin 2.4. ASSESSMENT AND PLAN: 1. Global encephalopathy. This is likely multifactorial, but especially due to alcohol withdrawal. He is more awake today. He is following commands. Initially, he was lethargic. I will ask Physical Therapy and Occupational Therapy to start working on this patient. 2. Anemia of acute blood loss due to gastrointestinal bleed from esophageal varices, status post 1 packed red blood cell. He is status post esophagogastroduodenoscopy with esophageal banding. 3. Alcohol use and abuse prior to hospitalization with withdraw symptoms initially. This is better. 4. Cholelithiasis versus gallbladder polyp, followed by Surgery. 5. Electrolyte abnormality. Continue to replace. 6. Left arm thrombophlebitis, better. 7. Bilateral lower lobe infiltrate, concerning for pneumonia. Actually, aspiration pneumonia is highest on my differential. Will continue with antibiotics for now. He had a mild increase of temperature today at 99.8, but I believe he is stable. Today, I will start this patient on physical therapy and occupational therapy. He seems to be really weak. I think he can be transferred to the PVC unit today if we have a bed available. cc: Larry Foster MD
--- NOTE | 2019-08-18 10:27 | NEUROLOGY PROGRESS NOTE ---
DATE: 08/18/2019 Mr. De Guzman continues obtunded. I could get him awake and alert more easily today than yesterday. He spoke more briskly and spontaneously and there was less dysarthria today. Still, when not vigorously stimulated, he seemed quickly back to sleep. Mother at the bedside reports she has been able to have more conversation with him today than yesterday. He has reported being hungry and she agrees his speech is more easily understood today. He has not complained of headache. IMPRESSION: Persistent global encephalopathy, likely multiple factors, steady slow improvement in the last few days. No new suggestions from Neurology today. Thanks for asking us to see Mr. De Guzman. cc: MD MAXIME Gaffney IIID
[2019-08-18] MEDS ORDERED: SODIUM CHLORIDE 0.9% 10 ML ONE (10:47)
[2019-08-18] MEDS: NEURONTIN PO SCH ×2 (10:49→20:27)
[2019-08-18] MEDS: THERA M PLUS PO SCH (10:49)
[2019-08-18] MEDS: FOLIC ACID PO SCH (10:49)
[2019-08-18] MEDS: PROTONIX IV SCH ×2 (10:49→20:27)
[2019-08-18] MEDS: FERROUS SULFATE PO SCH ×2 (10:50→20:27)
[2019-08-18] MEDS: VITAMIN B-1 PO SCH (10:50)
[2019-08-18] MEDS: CLINIMIX E 4.25%-5% SOLUTION 1,000 ML IV SCH ×2 (10:51→22:32)
[2019-08-18] MEDS: NON-FORMULARY MED PR SCH ×3 (11:45→17:06)
[2019-08-18] MEDS: VANCOMYCIN 1.9 GM in NS 500 ML IV SCH (12:00)
--- NOTE | 2019-08-18 12:49 | GASTROENTEROLOGY PROGRESS NOTE ---
DATE: 08/18/2019 SUBJECTIVE: Mr. De Guzman is a 59-year-old male resting in bed. He is sleepy but wakes up when called by his name. The patient is able to tell his name, date of , and where he is. The patient is on a full liquid diet with Ensure and as per the nursing staff, they are trying to feed him but he is still not able to take much of the p.o. intake. The patient has not had any bowel movements today. OBJECTIVE: Vital Signs: Temperature 98.2 degrees, pulse 93, respirations 25, blood pressure 158/65, oxygen saturation 97% on room air. The patient's weight is 188 pounds, BMI is 24.1 kg/m2. General: He is awake and alert but has periods of confusion. HEENT: Pale conjunctivae. No icterus. PERRL. Neck: Supple. Lungs: Clear to auscultation. Cardiovascular: The patient is tachycardic and tachypneic. Abdomen: Soft, nontender, nondistended. Active bowel sounds heard in all 4 quadrants. Extremities: No clubbing, no cyanosis, no edema. Pedal pulses 2+ present bilaterally. Neurologic: He is awake, alert, with periods of confusion. LABORATORY DATA: WBC 12.05, RBC 2.41, hemoglobin 7.7, hematocrit is 24.0, platelet count is 227,000. Sodium 138, potassium 3.6, chloride 110, carbon dioxide 19, anion gap of 9, BUN 10, creatinine 0.6, glucose 118, calcium 8.2, phosphorus 2.3, magnesium 1.9. Total bilirubin 1.81, AST 66, ALT 30, alkaline phosphatase is 117, albumin is 2.4. IMAGING: Chest x-ray yesterday showed dense bilateral upper lobe infiltrates compatible with pneumonia. IMPRESSION AND PLAN: 1. Esophageal varices. 2. Cirrhosis. 3. Alcoholism. 4. Anemia. 5. Delirium. 6. Alcohol withdrawal. PLAN: Mr. De Guzman is a 59-year-old male with a history of alcohol abuse. GI is following him for the upper GI bleed. The patient's bleeding is currently resolved. The patient is having some periods of confusion..The patient is currently receiving Protonix 40 mg IV twice a day. He is on lactulose enemas. We will continue to monitor his ammonia levels. He is receiving folic acid and vitamin B1 daily. He is on Clinimix 75 mL with lipids at 7 mL for his nutrition. The patient is receiving antibiotic Maxipime and vancomycin. We will continue to monitor the patient and follow the plan of care per PCP. This plan was discussed with Dr. Ding. Please call us for any further questions or concerns. Dictated by LIVIA Pryor for Elvis Ding MD cc: Elvis Ding MD I have seen and examined the patient myself and I agree with the above plan of care. Please call us with any questions or concerns. MTDD
[2019-08-18] MEDS: LIPOSYN 20% 500 ML IV SCH (17:29)
[2019-08-18] MEDS: SEROQUEL PO SCH (20:27)
[2019-08-18] MEDS: HALDOL IV PRN (22:08)
[2019-08-19] MEDS: VANCOMYCIN 1.9 GM in NS 500 ML IV SCH ×3 (00:32→23:22)
[2019-08-19] MEDS: MAXIPIME 1 GM in NS 50 ML IV SCH ×3 (03:03→20:05)
[2019-08-19] MEDS: LOPRESSOR IV SCH ×4 (03:03→23:21)
[2019-08-19] MEDS: CLINIMIX E 4.25%-5% SOLUTION 1,000 ML IV SCH (03:04)
[2019-08-19 06:13] LABS: BASO# 0.12 X1000 (0.0-0.2); EOS# 0.34 X1000 (0.0-0.7); EOS% 2.8 % (0.0-10.0); HEMATOCRIT 21.2 % (42.0-52.0); HEMOGLOBIN 6.9 g/dL (14.0-18.0); IMM GRAN# 0.06 X1000 (0.0-0.04); IMM GRAN% 0.5 % (0.0-0.5); LYMPH# 1.82 X1000 (1.2-3.4); LYMPH% 15.1 % (20.5-51.1); MCH 31.7 PG (27-31); MCHC 32.5 g/dL (33-37); MCV 97.2 FL (81-99); MONO# 1.68 X1000 (0.11-0.59); MPV 11.2 FL (7.4-10.4); NEUT# 8.02 X1000 (1.4-6.5); NEUT% 66.6 % (42.2-75.2); PLT 239 X1000 (130-400); RBC 2.18 XMIL (4.7-6.1); WBC 12.04 X1000 (4.8-10.8)
[2019-08-19 06:29] LABS: AGAP 8; BUN 8 mg/dL (8-22); CHLORIDE 111 mmol/L (98-107); COSMO 276; CREATININE 0.6 mg/dL (0.7-1.2); ESTIMATED GFR > 60; GLUCOSE 103 mg/dL (70-104); POTASSIUM 3.6 mmol/L (3.5-5.1); SODIUM 139 mmol/L (136-145); TCO2 20 mmol/L (25-35)
[2019-08-19] MEDS ORDERED: NS 500 ML IV ONE (07:23)
--- NOTE | 2019-08-19 08:02 | PROGRESS NOTE ---
DATE: 08/19/2019 SUBJECTIVE: The patient seems to be stable. He is still sleepy, but arousable. He is able to say his name, date of , and he knows he is in [place]. He is following commands on and off. His hemoglobin dropped to 6.9, and I will give him 1 unit of blood. I do really want physical therapy and occupational therapy to take care of this patient since he is really weak. He seems to be tolerating p.o. OBJECTIVE: Vital Signs: Temperature 98.8 degrees, pulse 83, respiratory rate 27, blood pressure 119/58, oxygen saturation 93 on room air. HEENT: Head normocephalic, no trauma. PERRLA. Neck: Supple. No JVD. No masses. Central trachea. Chest: Clear to auscultation. No wheezing. No rales. Abdomen: Soft. Some tenderness to palpation at the level of the epigastric and periumbilical area. Extremities: No edema, no clubbing, no cyanosis. Neurological examination: The patient is sleepy, but arousable. He is able to say his name, date of and location. He knows he is in [place], but he did not say that he was in the hospital. It is really hard to understand what he says and his answers are slow. He does have generalized weakness. LABORATORY: WBC 12, hemoglobin 6.9, hematocrit 21.2, platelets 239. Sodium 139, potassium 3.6, chloride 111, bicarbonate 20. BUN 8, creatinine 0.6, glucose 103, calcium 8, ammonia 44. ASSESSMENT AND PLAN: 1. Global encephalopathy. This is likely multifactorial, especially due to alcohol withdrawal. He is more awake today. He is following commands on and off. Initially, he was lethargic. Physical therapy and occupational therapy has been consulted. We need to go ahead and start therapy on this patient. 2. Anemia of acute blood loss due to gastrointestinal bleed from esophageal varices, status post 1 packed red blood cell. Hemoglobin dropped to 6.9. I will give him an extra unit. 3. Alcohol use and abuse prior to hospitalization with withdrawal symptoms initially. This is better. We will continue with same management. 4. Cholelithiasis versus gallbladder polyps, followed by Surgery. 5. Electrolyte abnormality. Continue to replace. 6. Left arm thrombophlebitis, better. 7. Bilateral lower lobe infiltrates concerning for pneumonia. Actually, I do believe this is aspiration pneumonia, which is high on my differential. Continue with antibiotics for now. His temperature has been stable today. 8. Generalized weakness and physical deconditioning. I have requested an evaluation by physical therapy and occupational therapy today. cc: Larry Foster MD
[2019-08-19] MEDS ORDERED: SODIUM CHLORIDE 0.9% 10 ML ONE (09:17)
--- NOTE | 2019-08-19 09:45 | NEUROLOGY PROGRESS NOTE ---
DATE: 08/19/2019 SUBJECTIVE: Mr. De Guzman has become more alert. He has not had recognized clinical seizure, OBJECTIVE: He is much brighter today, more alert, more attentive, very spontaneous with speech. Speech continues significantly dysarthric and difficult to understand. He followed simple commands. I did not test his cognitive function. He moved all of his limbs. There was no obvious focal motor deficit on limited bedside testing this morning. PLAN: I do not have any new thoughts or new suggestions today. Would continue to follow clinically and hope encephalopathy will resolve. Thanks for asking Neurology to see Mr. De Guzman. cc: MD JERRY Gaffney III
[2019-08-19] MEDS: FOLIC ACID PO SCH (09:49)
[2019-08-19] MEDS: FERROUS SULFATE PO SCH ×2 (09:49→20:05)
[2019-08-19] MEDS: VITAMIN B-1 PO SCH (09:50)
[2019-08-19] MEDS: NEURONTIN PO SCH ×2 (09:50→20:05)
[2019-08-19] MEDS: THERA M PLUS PO SCH (09:50)
[2019-08-19] MEDS: PROTONIX IV SCH ×2 (09:51→20:05)
[2019-08-19] MEDS: NON-FORMULARY MED PR SCH ×3 (09:58→19:04)
--- NOTE | 2019-08-19 13:29 | GASTROENTEROLOGY PROGRESS NOTE ---
DATE: 08/19/2019 SUBJECTIVE: Mr. De Guzman is a 59-year-old male. The patient is awake, alert, oriented x3. His confusion has been declining. The patient has been started on a heart healthy diet and is having positive bowel movements. OBJECTIVE: Vital signs: Temperature 98.4 degrees, pulse is 84, respirations 18, blood pressure 125/55. Oxygen saturation 98% on room air. Patient's weight is 188 pounds, BMI is 24.1 kg/m2. General: He is awake, alert and oriented x3. HEENT: Pale conjunctivae, no icterus. PERRL. Neck: Supple. Lungs: Clear to auscultation. Cardiovascular: Regular rate and rhythm. Abdomen: Soft, nontender, nondistended. Active bowel sounds heard in all 4 quadrants. Extremities: No clubbing, no cyanosis, no edema. Pedal 2+, present bilaterally. Neurologic: He is alert, oriented x3. LABORATORY DATA: WBCs are 12.04, RBC 2.18, hemoglobin 6.9, hematocrit is 21.2, platelet count is 239,000. Sodium 139, potassium is 3.6, chloride 111, carbon dioxide 20, anion gap 8, BUN 8, creatinine 0.6, glucose 103, calcium 8.0. IMPRESSION AND PLAN: - Bleeding esophageal varices - Acute blood loss anemia - Hepatic encephalopathy - ETOH withdrawal -resolved - Decompensated ETOH cirrhosis PLAN: Mr. De Guzman is a 59-year-old male. GI is following him for his upper GI bleed. The patient's hemoglobin today is 6.9 and 21.2. He has received 1 unit of blood today. The patient has also been started on a heart healthy diet. His Clinimix and lipids have been discontinued.. The patient has been having positive bowel movements. We will continue to monitor the patient and follow the plan of care per PCP. This plan was discussed with Dr. Valdez. Please call us for any further questions or concerns. Dictated by LIVIA Pryor for Todd Valdez MD Physician Attestation I have seen and examined the patient. I have discussed and reviewed the note by Anastasia BHAKTA and agree with findings and plan as documented. Transfuse to maintain hgb 7-8. MTDD
[2019-08-19] MEDS: SEROQUEL PO SCH (20:05)
[2019-08-19] MEDS: HALDOL IV PRN (20:13)
[2019-08-20] MEDS: VANCOMYCIN 1.9 GM in NS 500 ML IV SCH ×2 (00:09→12:25)
[2019-08-20] MEDS: MAXIPIME 1 GM in NS 50 ML IV SCH ×3 (02:58→19:02)
[2019-08-20] MEDS: HALDOL IV PRN (03:43)
[2019-08-20] MEDS: LOPRESSOR IV SCH ×2 (04:44→08:49)
[2019-08-20 06:24] LABS: BASO# 0.06 X1000 (0.0-0.2); BASO% 0.6 % (0.0-0.8); EOS% 2.9 % (0.0-10.0); HEMATOCRIT 22.2 % (42.0-52.0); HEMOGLOBIN 7.2 g/dL (14.0-18.0); IMM GRAN# 0.04 X1000 (0.0-0.04); IMM GRAN% 0.4 % (0.0-0.5); LYMPH# 1.56 X1000 (1.2-3.4); LYMPH% 15.2 % (20.5-51.1); MCH 30.9 PG (27-31); MCHC 32.4 g/dL (33-37); MCV 95.3 FL (81-99); MONO# 1.47 X1000 (0.11-0.59); MONO% 14.3 % (1.7-9.3); MPV 11.4 FL (7.4-10.4); NEUT# 6.86 X1000 (1.4-6.5); NEUT% 66.6 % (42.2-75.2); PLT 235 X1000 (130-400); RBC 2.33 XMIL (4.7-6.1); WBC 10.29 X1000 (4.8-10.8)
[2019-08-20 06:33] LABS: AGAP 10; ALB/GLOB RATIO 0.6; ALBUMIN 2.1 g/dL (3.5-5.0); ALKALINE PHOSPHATASE 131 U/L (32-122); BUN 7 mg/dL (8-22); CALCIUM 7.9 mg/dL (8.8-10.2); CHLORIDE 111 mmol/L (98-107); COSMO 277; CREATININE 0.7 mg/dL (0.7-1.2); ESTIMATED GFR > 60; GLUCOSE 129 mg/dL (70-104); GOT 60 U/L (10-34); GPT 25 U/L (10-44); POTASSIUM 3.3 mmol/L (3.5-5.1); SODIUM 139 mmol/L (136-145); TCO2 18 mmol/L (25-35); TOTAL BILIRUBIN 1.64 mg/dL (0.20-1.00); TOTAL PROTEIN 5.9 g/dL (6.3-8.3)
[2019-08-20] MEDS ORDERED: SODIUM CHLORIDE 0.9% 10 ML ONE (07:57)
[2019-08-20] MEDS: PROTONIX IV SCH (08:46)
[2019-08-20] MEDS: THERA M PLUS PO SCH (08:47)
[2019-08-20] MEDS: NEURONTIN PO SCH ×2 (08:47→21:23)
[2019-08-20] MEDS: FOLIC ACID PO SCH (08:47)
[2019-08-20] MEDS: VITAMIN B-1 PO SCH (08:47)
[2019-08-20] MEDS: FERROUS SULFATE PO SCH ×2 (08:47→21:23)
[2019-08-20] MEDS: NON-FORMULARY MED PR SCH ×3 (09:27→16:40)
--- NOTE | 2019-08-20 10:15 | PROGRESS NOTE ---
DATE: 08/20/2019 SUBJECTIVE: This morning Mr. De Guzman refers to be doing a lot better. He is articulating more clearly today. Three family members, including a brother and sister, were at the bedside at the time of the encounter. OBJECTIVE: Vitals: Mr. De Guzman current vitals show blood pressure is 136/60, pulse of 90, respirations 20, temperature 98.8 degrees. General: Mr. De Guzman is a 59-year-old gentleman, he is in bed. He did not seem to be in any cardiopulmonary distress. HEENT: Mucosa is pink and moist. Anicteric. Acyanotic. Neck: Supple. Chest: Clear to auscultation. No crepitations. No rhonchi. Cardiovascular: Regular rate and rhythm. There are no murmurs, no rubs, no gallops. Skin: There is an old sternotomy scar on the anterior chest wall. GI: The abdomen is soft, nontender. Bowel sounds present. Extremities: No pedal edema. Distal pulses present. 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 LABORATORY DATA: WBC is down to 10.29, hemoglobin is 7.2, platelet count of 235,000. Chemistry is also reviewed, potassium is 3.3. The rest of the chemistry for the most part is unremarkable. The patient got 1 unit of blood yesterday for a total of 2 during the hospital course. ASSESSMENT: 1. Anemia of acute blood loss from gastrointestinal bleed, as a result of esophageal varix. The patient is status post EGD, with esophageal varix banding. He has gotten a total of 2 PRBCs during the hospital course. 2. Altered mental status, presumably multifactorial including alcohol withdrawal, vitamin deficiency, and metabolic encephalopathy. The patient's mentation is gradually improving, he is now more alert, he is conversational. 3. Alcohol use and abuse prior to hospitalization with withdrawal symptoms, initially improved. 4. Cholelithiasis versus gallbladder polyp. Surgery is on board. 5. Electrolyte abnormality. We will continue to replace. 6. Left arm thrombophlebitis, resolved. 7. Bilateral upper lobe infiltrate concerning for aspiration pneumonia. The patient is currently on cefepime with vancomycin, today is day 3 on those antimicrobials. WBC has normalized today. 8. Generalized weakness and physical deconditioning. Physical Therapy as well as Occupational Therapy has been consulted. PLAN: So, in general, I think Mr. De Guzman is doing a lot better. Mentation has gotten better. He is eating. We are going to transfer him from the ICU to the medical floor. We will continue with physical therapy. Encourage Mr. De Guzman to be walking around with the help of the staff and hopefully get him home by Thursday. cc: Abrahan Park MD Addendum: Mr De Guzman started having another episode of hematemesis. I will keep him NPO. Start somatostatin and PPI drips. I have discussed with Dr Joynerf. There is plan to do urgent EGD today. Will cross match for 2 PRBC MTDD
[2019-08-20] MEDS: VITAMIN D PO SCH (13:28)
[2019-08-20] MEDS: SANDOSTATIN 500 MICROGM in D5W 100 ML IV SCH ×3 (13:43→23:24)
[2019-08-20] MEDS ORDERED: LIPOSYN 20% 500 ML IV SCH (14:00)
[2019-08-20] MEDS ORDERED: AMIDATE ONE (14:19)
[2019-08-20] MEDS ORDERED: QUELICIN (DOSE) ONE (14:22)
[2019-08-20] MEDS ORDERED: XYLOCAINE-MPF 2% ONE (14:22)
[2019-08-20] MEDS ORDERED: ZEMURON ONE (14:23)
[2019-08-20] MEDS ORDERED: NS 250 ML ONE (14:25)
[2019-08-20] MEDS: PROTONIX 80 MG in NS 80 ML IV SCH (14:50)
--- NOTE | 2019-08-20 15:40 | GASTROENTEROLOGY PROGRESS NOTE ---
DATE: 08/20/2019 Mr. De Gumzan is a patient of Dr. Ding who had presented to the hospital with hematemesis on 08/06/2019. He had undergone EGD and treatment of his esophageal varices on 08/07/2019. He had tolerated it well and was doing well until this morning when I was called in to see him for an episode of GI bleed. He has had copious amount of bright red blood and bloody emesis. He has become more confused and has been a little bit uncomfortable. He continues to have blood and blood clots in his emesis. He is confused and not answering my questions appropriately. VITAL SIGNS: Temperature is 99.5 degrees, pulse is 90 per minute, breathing 20, blood pressure was 129/51. Abdomen is slightly distended but soft. Bowel sounds are audible. Hemoglobin was 7.2, hematocrit 22.2. IMPRESSION: Acute GI bleed status post esophageal variceal banding few days ago. Most likely he has now an ulcer from the post banding site. He has had significant amount of bleeding and appears to be hemodynamically stable for now. I will recheck his hemoglobin and hematocrit and transfuse 2 units of packed RBC. We will proceed with urgent EGD with esophageal variceal banding or injection depending on the findings. In the meantime, we will start him back on the Sandostatin drip, Protonix drip, and continue hemodynamic resuscitation. I have explained the findings and plan to the patient's [id number] who was present at bedside. She understands and agrees to proceed. cc: Lucius Agarwal MD
[2019-08-20] MEDS ORDERED: ZOFRAN ONE (15:42)
[2019-08-20] MEDS: DIPRIVAN 1% 1,000 MG/100 ML BOTTLE IV SCH ×3 (16:18→22:21)
[2019-08-20] MEDS: CLINIMIX E 4.25%-5% SOLUTION 1,000 ML IV SCH (16:38)
[2019-08-20 17:43] LABS: URINE SOURCE CATH
[2019-08-20 17:48] LABS: BILIRUBIN URINE NEGATIVE (NEGATIVE); BLOOD URINE NEGATIVE (NEGATIVE); COLOR YELLOW; GLUCOSE URINE NEGATIVE (NEGATIVE); KETONE URINE TRACE mg/dL (NEGATIVE); LEUKOCYTES URINE NEGATIVE (NEGATIVE); NITRITE URINE NEGATIVE (NEGATIVE); PH URINE 5.5; PROTEIN URINE TRACE mg/dL (NEGATIVE); SP GRAVITY URINE 1.023; TURBIDITY URINE HAZY (CLEAR); UROBILINOGEN URINE 2 mg/dL (NORMAL)
[2019-08-20 17:51] LABS: UR EPITHELIAL CELLS <10 /HPF (<10); URINE BACTERIA NEGATIVE /HPF; URINE RBC <10 /HPF (<10); URINE WBC <10 /HPF (<10)
[2019-08-20] MEDS: FLOMAX PO SCH (21:23)
[2019-08-20] MEDS: SEROQUEL PO SCH (21:23)
[2019-08-20 21:28] LABS: ALLEN TEST YES; BE -5.5 mmoll (-3.0-3.0); BLOOD TYPE ARTERIAL; HCO3-(ACT) 20.7 mmoll (20.0-26.0); METHB 0.7 % (0.0-1.5); O2(CT) 12.5 mL/dL (15.0-23.0); O2HB 97.2 % (95.0-99.0); PCO2(98.6) 26 mmHg (35-45); PO2(98.6) 155 mmHg (60-100); SAMPLE BLOOD; SRATE 12 BPM; THB 8.9 g/dL (11.5-17.4); TVOL 700 mL; pH(98.6) 7.44 (7.35-7.45)
[2019-08-20 21:29] LABS: MODALITY VENTILATOR
--- NOTE | 2019-08-20 21:33 | Diag Imaging Result Doc PS360 ---
EXAM: CHEST-PORTABLE INDICATION: confirm ETT placement TECHNIQUE: One view COMPARISON: 08/17/2019 FINDINGS: The right PICC line is in stable position. The newly placed ET tube projects over the trachea and above the dhiraj at about the T4-5 level. There has been improvement of the upper lobe infiltrates bilaterally. However, there appears to be new infiltrate in the left lower lung zone. No other new consolidation is identified. Cardiac silhouette is stable. IMPRESSION: 1.Interval placement of ET tube as described. 2.Mixed changes as detailed above. Electronically signed by Juan Ramon David 08/20/2019 9:31 PM
[2019-08-20 22:44] LABS: HEMATOCRIT 26.9 % (42.0-52.0); HEMOGLOBIN 8.9 g/dL (14.0-18.0)
[2019-08-20] MEDS: ALBUTEROL NEB INH PRN (23:15)
[2019-08-21] MEDS: PROTONIX 80 MG in NS 80 ML IV SCH ×2 (00:15→11:00)
[2019-08-21] MEDS: VANCOMYCIN 1.9 GM in NS 500 ML IV SCH ×3 (01:25→23:38)
[2019-08-21] MEDS: MAXIPIME 1 GM in NS 50 ML IV SCH ×3 (03:26→19:25)
[2019-08-21] MEDS: DIPRIVAN 1% 1,000 MG/100 ML BOTTLE IV SCH ×5 (03:27→22:12)
[2019-08-21 04:57] LABS: ALLEN TEST YES; BE -4.4 mmoll (-3.0-3.0); BLOOD TYPE ARTERIAL; HCO3-(ACT) 21.5 mmoll (20.0-26.0); METHB 0.8 % (0.0-1.5); O2(CT) 13.4 mL/dL (15.0-23.0); O2HB 97.1 % (95.0-99.0); PCO2(98.6) 25 mmHg (35-45); PO2(98.6) 130 mmHg (60-100); SAMPLE BLOOD; SAO2 99.8 % (95.0-100.0); SRATE 12 BPM; THB 9.6 g/dL (11.5-17.4); TVOL 700 mL; pH(98.6) 7.47 (7.35-7.45)
[2019-08-21 04:58] LABS: MODALITY VENTILATOR
[2019-08-21] MEDS: CLINIMIX E 4.25%-5% SOLUTION 1,000 ML IV SCH ×2 (05:23→19:37)
[2019-08-21 05:42] LABS: BASO# 0.07 X1000 (0.0-0.2); BASO% 0.5 % (0.0-0.8); EOS# 0.48 X1000 (0.0-0.7); EOS% 3.5 % (0.0-10.0); HEMOGLOBIN 8.7 g/dL (14.0-18.0); IMM GRAN# 0.19 X1000 (0.0-0.04); IMM GRAN% 1.4 % (0.0-0.5); LYMPH# 1.55 X1000 (1.2-3.4); LYMPH% 11.2 % (20.5-51.1); MCH 31.3 PG (27-31); MCHC 33.5 g/dL (33-37); MCV 93.5 FL (81-99); MONO# 1.54 X1000 (0.11-0.59); MONO% 11.2 % (1.7-9.3); MPV 11.3 FL (7.4-10.4); NEUT# 9.98 X1000 (1.4-6.5); NEUT% 72.2 % (42.2-75.2); PLT 226 X1000 (130-400); RBC 2.78 XMIL (4.7-6.1); RDW 15.7 % (11.5-14.5); WBC 13.81 X1000 (4.8-10.8)
[2019-08-21 06:32] LABS: AGAP 9; ALB/GLOB RATIO 0.5; ALKALINE PHOSPHATASE 111 U/L (32-122); BUN 13 mg/dL (8-22); CHLORIDE 112 mmol/L (98-107); COSMO 280; CREATININE 0.8 mg/dL (0.7-1.2); ESTIMATED GFR > 60; GLUCOSE 144 mg/dL (70-104); GOT 49 U/L (10-34); GPT 23 U/L (10-44); POTASSIUM 4.2 mmol/L (3.5-5.1); SODIUM 139 mmol/L (136-145); TCO2 18 mmol/L (25-35); TOTAL BILIRUBIN 2.15 mg/dL (0.20-1.00); TOTAL PROTEIN 5.7 g/dL (6.3-8.3)
--- NOTE | 2019-08-21 07:46 | Diag Imaging Result Doc PS360 ---
EXAM: CHEST-PORTABLE INDICATION: while intubated TECHNIQUE: One view COMPARISON: 08/20/2019 FINDINGS: Support tubes and lines are in stable positions. Bilateral infiltrates are approximately stable. No new consolidation is identified. Cardiac silhouette is stable. IMPRESSION: Stable chest. Electronically signed by Juan Ramon David 08/21/2019 7:44 AM
[2019-08-21] MEDS: NEURONTIN PO SCH ×2 (08:09→22:14)
[2019-08-21] MEDS: FOLIC ACID PO SCH (08:09)
[2019-08-21] MEDS: THERA M PLUS PO SCH (08:09)
[2019-08-21] MEDS: FERROUS SULFATE PO SCH ×2 (08:09→22:13)
[2019-08-21] MEDS: NON-FORMULARY MED PR SCH ×3 (08:09→17:58)
[2019-08-21] MEDS: VITAMIN B-1 PO SCH (08:10)
[2019-08-21] MEDS: SANDOSTATIN 500 MICROGM in D5W 100 ML IV SCH ×2 (08:17→17:58)
[2019-08-21] MEDS: ATROVENT NEB INH PRN ×3 (08:29→15:50)
[2019-08-21] MEDS: ALBUTEROL NEB INH PRN ×3 (08:29→15:50)
--- NOTE | 2019-08-21 09:51 | PROGRESS NOTE ---
DATE: 08/21/2019 SUBJECTIVE: Mr. De Guzman this morning is seen intubated. Yesterday at about early afternoon, the nurses notified me that Mr. De Guzman had multiple bouts of hematemesis. I did evaluate him at that time and discussed the case with Dr. Agarwal, who took him to the OR and did some banding to the esophageal varix. This is the second intervention. Subsequently, he was brought back to the critical care unit and intubated. He was also given 2 units of PRBC. This morning, the girlfriend is at the bedside. OBJECTIVE: Vital Signs: His current vitals are blood pressure 121/66 with a pulse of 84, respirations 16, temperature is 96.8 degrees. The patient is saturating 100% on mechanical ventilation. General: Mr. De Guzman is a 59-year-old gentleman. He is in bed. He is currently intubated. HEENT: Mucosa is pink and moist. Anicteric. Acyanotic. Neck: Supple. Chest: Good air entry bilateral. There were no crepitations. No rhonchi. There were some transmitted sounds from the ventilator. Cardiovascular: Regular rate and rhythm. No murmurs, no rubs, no gallops. There is an old sternotomy scar on the anterior chest wall. Abdomen: Soft. Bowel sounds present. Extremities: No pedal edema. Distal pulses present. MEDICAL SCREENER: The patient is currently intubated and sedated on propofol. He will withdraw to painful stimulation. Pupils are equal but pinpoint, and they are reactive to light. I'S AND O'S: Urine output has been 975. The patient is currently positive balance of over 30,000. IMAGING STUDIES: A chest x-ray this morning shows bilateral infiltrates approximately stable. No new consolidation. Cardiac silhouette is stable. Current Medications have all been reviewed. Patient continues to be on vancomycin and cefepime. He has been started on octreotide drip for 72 hours and PPI drip. ASSESSMENT: 1. Severe hematemesis secondary to esophageal varix. This is the second time the patient had similar episode and he has been intervened with an emergent esophagogastroduodenoscopy yesterday with banding as well. 2. Anemia of acute blood loss from esophageal varix bleeding. The patient is status post 4 packed red blood cell transfusion throughout the hospital course. He got 2 units yesterday. 3. Altered mental status on presentation, presumably multifactorial in etiology including alcohol withdrawal, vitamin deficiencies, metabolic encephalopathy. The patient seems to have been doing fairly okay after yesterday. He is currently intubated and sedated on propofol. He does very poorly with Ativan, so we will try to avoid. If the patient becomes agitated, will prefer to use p.r.n. Haldol. 4. Alcohol use and abuse prior to hospitalization with withdrawal symptoms. 5. Cholelithiasis versus gallbladder polyps. Surgery is on board. 6. Bilateral upper lobe infiltrate concerning for aspiration pneumonia versus hospital-acquired pneumonia. Patient is on vancomycin and cefepime. Today is day 4 on the antimicrobial therapy. 7. Generalized weakness and physical deconditioning. Physical therapy and occupational therapy on board. PLAN: In general, Mr. De Guzman seems to have been doing progressively better. His mentation has significantly improved. He was still generalized weak, so he was walking with physical therapy. Unfortunately yesterday, he had another bout of hematemesis and he had to undergo emergent EGD with banding. Please refer to the details of Dr. Agarwal's notes from yesterday. Mr. De Guzman is currently intubated. Pulmonary Medicine has been consulted. cc: Abrahan Park MD
--- NOTE | 2019-08-21 10:13 | PROVIDER PROGRESS NOTE ---
Progress Note Patient has been seen and examined. A full dictation to follow.
[2019-08-21] MEDS ORDERED: SODIUM CHLORIDE 0.9% 10 ML ONE (14:24)
[2019-08-21] MEDS: PROTONIX IV SCH (14:28)
--- NOTE | 2019-08-21 15:48 | GASTROENTEROLOGY PROGRESS NOTE ---
DATE: 08/21/2019 SUBJECTIVE: The patient remains intubated. He has received propofol. The patient has family at the bedside. I spoke with them. Per nurse report, there has been no evidence of active GI bleeding since his procedure yesterday. He had an EGD with banding of esophageal varices. He is on Sandostatin drip and Protonix drip. OBJECTIVE: Vital Signs: Temperature 98.2 degrees, pulse 86, respirations 12, blood pressure 119/61. General: The patient is intubated on mechanical ventilation. No evidence of active GI bleeding. LABORATORY: Hematology; WBC 13.81, hemoglobin 8.7, hematocrit 26.0, MCV 93.5, platelets 226,000. Chemistry; sodium 139, potassium 4.2, chloride 112, CO2 18, BUN 13, creatinine 0.8, glucose 144, calcium 8.0, total bilirubin 2.15, AST 49, ALT 23, alkaline phosphatase 111. ASSESSMENT AND PLAN: 1. Hematemesis with history of esophageal varices and recent banding. Patient had repeat emergent EGD by Dr. Agarwal yesterday with a repeat banding. 2. Respiratory failure. Patient is currently intubated on mechanical ventilation. Continue current management. He is receiving propofol. 3. History of alcohol abuse. 4. Continue to monitor for any further signs of signs of active bleeding. Monitor hemoglobin and hematocrit. He continues on Sandostatin drip and Protonix drip. Continue current management. 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 5. Further plans to be made as needed. I have discussed this case with Dr. Agarwal. Dictated by LIVIA Peralta for Lucius Agarwal MD cc: LIVIA Marquez MD
[2019-08-21] MEDS ORDERED: NS NEB INH SCH (19:00)
--- NOTE | 2019-08-21 20:08 | PULMONOLOGY CONSULTATION ---
DATE: 08/21/2019 REQUESTING PROVIDER: LIVIA Lyon. REASON FOR CONSULTATION: Intubation. HISTORY OF PRESENT ILLNESS: This is a 59-year-old -[place] male with a medical history of prostate cancer, atrial fibrillation, hypertension, gastroesophageal reflux disease, and alcoholism. He apparently was admitted on 08/06/2019 with upper GI bleed likely secondary to variocele bleed, alcoholism, thrombocytopenia, abnormal liver function tests, likely secondary to alcoholic hepatitis and altered mental status. Unfortunately, yesterday afternoon the patient developed severe hematemesis secondary to esophageal varix and underwent an emergent EGD with banding. After the procedure, the patient stayed intubated and transferred to ICU. Because of the blood loss, he apparently required 2 units of packed red blood cell transfusion. The patient currently is still intubated and sedated with Diprivan at 14 mcg/kg/minute. The patient's long- term girlfriend is at the bedside. This apparently is the patient's second time of hematemesis secondary to esophageal varices. PAST MEDICAL HISTORY: 1. Prostatic cancer diagnosed about 2 months ago status post radiation per Dr. Wayne. 2. Atrial fibrillation . 3. Hypertension. 4. Gastroesophageal reflux disease. 5. Alcoholism. PAST SURGICAL HISTORY: 1. Open heart bypass. 2. EGD with band ligation of varices by Dr. Toña donovan on 08/07/2019. 3. Emergent EGD by Dr. Agarwal with repeat banding on 08/20/2019. SOCIAL HISTORY: The patient drinks alcohol, smokes cigarettes less than 1 pack per day for many years, and uses street drug, named crack. FAMILY HISTORY: Positive for hypertension. ALLERGIES: No known drug allergies. REVIEW OF SYSTEMS: Unable to be obtained. PHYSICAL EXAMINATION: Vital Signs: Temperature 97.8 degrees, blood pressure 135/64, pulse 84, respiratory rate 18, oxygen saturation 99% on AC with spontaneous rate 12, FiO2 of 40%, tidal volume 700 and PEEP 5. General: Intubated, lying in bed with no acute distress noted. HEENT: Normocephalic, atraumatic. ET tube in place. Mucosa pink and moist. Respiratory: Mechanically ventilated, symmetrical excursion. Clear to auscultation bilaterally. Cardiovascular: Regular rate and rhythm with S1 and S2 appreciated. Gastrointestinal: Soft, mildly distended. Normoactive bowel sounds in all 4 quadrants. Extremities: Bilateral lower extremity and bilateral upper extremity pitting edema, 1 to 2+. The left upper extremity has several healing wound areas with no signs of infection noted. Left lower extremity has interosseous infusion on. Neurologic: Sedated, unresponsive to verbal or physical stimuli. LAB DATA: White blood cells 13.81, hemoglobin 8.7, hematocrit 26.0, platelets 226,000. Sodium 149, potassium 4.2, chloride 112, carbon dioxide 18, BUN 14, creatinine 0.8, glucose 144. ABG; pH 7.47, pCO2 25, PO2 130, HCO3 21.5, carbon dioxide 21.5, base excess -4.4, and oxyhemoglobin 97.1. IMAGING DATA: Chest x-ray this morning showed stable chest with approximately stable bilateral infiltrates. ASSESSMENT: This is a 60-year-old -[place] male with a medical history of prostate cancer, atrial fibrillation, hypertension, gastroesophageal reflux disease, alcoholism, and tobacco use. He was initially admitted on 08/06/2019 with hematemesis secondary to esophageal varices bleed. He underwent EGD with band ligation of varices by Dr. Ding on 08/07/2019. Unfortunately, he developed hematemesis secondary to esophageal varices bleed again on 08/20/2019. He underwent repeat emergent EGD by Dr. Agarwal on the same day with repeat banding. The patient remain intubated after the procedure and transferred to ICU for further evaluation and management. 1. Acute respiratory failure. 2. Anemia of acute blood loss secondary to esophageal varix, bleeding. 3. Bilateral infiltrates concerning for aspiration pneumonia versus hospital- acquired pneumonia. PLAN: 1. Continue current treatment and supportive care per admitting and other teams on the case. 2. Continue antibiotics, including vancomycin and cefepime per hospitalist. 3. Ventilator setting checked and titrated to patient's needs per clinical protocol with close monitoring. 4. Sedation, continuous propofol drip titrated to patient's needs per clinical protocol with close monitoring. 5. Tobacco cessation education when appropriate. 6. Continue DVT and GI prophylaxis. 7. Further recommendations pending hospital course. Total evaluation time in minutes: 34. Thank you for the courtesy of this consult. Dictated by LIVIA Olmos for Gregory Holley MD cc: LIVIA Olmosjar, MD I did the evaluation, exam face to face exam anfd evaluation, orders. LIVIA did scribing only. (My evaluation time 34 minutes). Dr. Holley. JERRY
[2019-08-21] MEDS: ATROVENT NEB INH SCH (21:05)
[2019-08-21] MEDS: XOPENEX NEB INH SCH (21:05)
[2019-08-21] MEDS: SEROQUEL PO SCH (22:14)
[2019-08-21] MEDS: FLOMAX PO SCH (22:14)
[2019-08-22] MEDS: DIPRIVAN 1% 1,000 MG/100 ML BOTTLE IV SCH ×3 (01:51→10:17)
[2019-08-22] MEDS: PROTONIX IV SCH ×2 (01:52→14:33)
[2019-08-22] MEDS: XOPENEX NEB INH SCH ×4 (03:10→21:12)
[2019-08-22] MEDS: ATROVENT NEB INH SCH ×4 (03:10→21:12)
[2019-08-22] MEDS: MAXIPIME 1 GM in NS 50 ML IV SCH ×3 (03:16→19:56)
[2019-08-22] MEDS: SANDOSTATIN 500 MICROGM in D5W 100 ML IV SCH ×2 (04:37→14:34)
[2019-08-22 05:13] LABS: ALLEN TEST YES; BE -3.5 mmoll (-3.0-3.0); BLOOD TYPE ARTERIAL; HCO3-(ACT) 22.2 mmoll (20.0-26.0); METHB 1.2 % (0.0-1.5); O2(CT) 12.5 mL/dL (15.0-23.0); O2HB 96.7 % (95.0-99.0); PCO2(98.6) 24 mmHg (35-45); PO2(98.6) 134 mmHg (60-100); SAMPLE BLOOD; SAO2 99.8 % (95.0-100.0); SRATE 12 BPM; TVOL 700 mL
[2019-08-22 05:16] LABS: MODALITY VENTILATOR
[2019-08-22 06:10] LABS: AGAP 10; ALB/GLOB RATIO 0.5; ALKALINE PHOSPHATASE 120 U/L (32-122); BUN 14 mg/dL (8-22); CALCIUM 7.9 mg/dL (8.8-10.2); CHLORIDE 114 mmol/L (98-107); COSMO 286; CREATININE 0.8 mg/dL (0.7-1.2); ESTIMATED GFR > 60; GLUCOSE 143 mg/dL (70-104); GOT 49 U/L (10-34); GPT 21 U/L (10-44); POTASSIUM 4.2 mmol/L (3.5-5.1); SODIUM 142 mmol/L (136-145); TCO2 18 mmol/L (25-35); TOTAL BILIRUBIN 1.66 mg/dL (0.20-1.00)
--- NOTE | 2019-08-22 06:43 | Diag Imaging Result Doc PS360 ---
EXAM: CHEST-PORTABLE HISTORY: while intubated TECHNIQUE: Single view COMPARISON: 08/21/2019 FINDINGS: No change in the endotracheal tube or right-sided PICC line. The lungs are poorly expanded. There are increased interstitial markings in both lungs. These are slightly more prominent. Small left pleural effusion. IMPRESSION: Interval worsening Electronically signed by Filippo Bentley 08/22/2019 6:41 AM
[2019-08-22 06:57] LABS: HEMATOCRIT 26.6 % (42.0-52.0); HEMOGLOBIN 8.6 g/dL (14.0-18.0); MCH 31.3 PG (27-31); MCHC 32.3 g/dL (33-37); MCV 96.7 FL (81-99); MPV 11.5 FL (7.4-10.4); RBC 2.75 XMIL (4.7-6.1); RDW 16.5 % (11.5-14.5); WBC 13.45 X1000 (4.8-10.8)
--- NOTE | 2019-08-22 07:43 | PROGRESS NOTE ---
DATE: 08/22/2019 SUBJECTIVE: This patient is still on mechanical ventilation and sedated. No acute events overnight. OBJECTIVE: Vital Signs: Temperature 97.5 degrees, pulse 91, respiratory rate 14, blood pressure 134/67, oxygen saturation 94% on mechanical ventilation. HEENT: Head normocephalic. No trauma. PERRLA. Neck: Supple. No JVD. No masses. Central trachea. Chest: Clear to auscultation. Some crepitus at the bases. Abdomen: Soft, nontender, nondistended. No hepatosplenomegaly. Extremities: No edema. No clubbing. No cyanosis. Neurological Examination: This patient is on mechanical ventilation and sedated. Laboratory: WBC 13.4, hemoglobin 8.6, hematocrit 26.6, platelets 233,000. Sodium 142, potassium 4.2, chloride 114, bicarbonate 18, BUN 14, creatinine 0.8, glucose 143, calcium 7.9, albumin 1.6. AST 49, ALT 21, alkaline phosphatase 120, albumin 2. ASSESSMENT AND PLAN: 1. Severe hematemesis secondary to esophageal varices. This is the second time that this patient had a similar episode and he had an emergent esophagogastroduodenoscopy about 2 days ago with banding as well. At this moment, he is on mechanical ventilation. 2. Anemia of acute blood loss from upper gastrointestinal bleed. He is status post 4 units of packed red blood cells. He received 2 units the day before yesterday when he was having the episode of hematemesis. 3. Altered mental status on presentation, likely due to alcohol withdrawal. Continue with the same management. 4. Alcohol use and abuse prior to hospitalization with withdrawal symptoms, aware. 5. Cholelithiasis versus gallbladder polyps. Surgery on board. 6. Bilateral upper lobe infiltrate concerning for aspiration pneumonia versus hospital-acquired pneumonia. Continue with the same management. He is on antibiotics. 7. Generalized weakness and physical deconditioning. Once this patient is better, will continue with physical therapy and occupational therapy. 8. Left arm thrombophlebitis, better. CRITICAL CARE TIME: 32 minutes. cc: Larry Foster MD MTDD
[2019-08-22] MEDS: NEURONTIN PO SCH ×2 (10:00→20:09)
[2019-08-22] MEDS: FOLIC ACID PO SCH (10:00)
[2019-08-22] MEDS: FERROUS SULFATE PO SCH ×2 (10:00→20:07)
[2019-08-22] MEDS: THERA M PLUS PO SCH (10:01)
[2019-08-22] MEDS: VITAMIN B-1 PO SCH (10:01)
[2019-08-22] MEDS: CLINIMIX E 4.25%-5% SOLUTION 1,000 ML IV SCH ×2 (10:18→13:30)
[2019-08-22] MEDS ORDERED: TYLENOL PR ONE (12:10)
[2019-08-22] MEDS: VANCOMYCIN 1.9 GM in NS 500 ML IV SCH (12:17)
--- NOTE | 2019-08-22 13:10 | GASTROENTEROLOGY PROGRESS NOTE ---
DATE: 08/22/2019 ATTENDING PHYSICIAN: Dr. Hernandez. SUBJECTIVE: Patient resting in bed. He is intubated and vented. I spoke to the patient's family at bedside. Over the weekend, the patient had recurrent upper GI bleeding. He had EGD with esophageal variceal banding by Dr. Agarwal. He is on Protonix and Sandostatin drip. No fever reported. OBJECTIVE: Vital Signs: Temperature 99.2 degrees, pulse of 87, respiratory rate 12, blood pressure 132/60, saturating 100% on ventilator. Body weight of 202 pounds 8 ounces. BMI 26 kg/m2. General: Moderately built and nourished, lying in bed, intubated and vented and sedated. HEENT: Positive pallor. No icterus. Positive ET tube noted. Neck: Supple. Abdomen: Soft, nontender, nondistended. No guarding. Extremities: No cyanosis or clubbing. Neurologic: He is sedated. IMAGING AND LABORATORY DATA: Hemoglobin and hematocrit are 8.6 and 26.6, white count 13.4, platelet count of 233,000. ABG showing pH of 7.50, pCO2 of 24, PO2 of 134. This is on ventilator at 40% FiO2. Sodium 142, potassium is 4.2, chloride 114, bicarb of 18, anion gap 10, BUN of 14, creatinine 0.8, glucose of 143, calcium is 7.9. Phosphorus 3.0, magnesium 2.0. Total bilirubin is 1.6, AST 49, ALT 21, alkaline phosphatase 120, total protein is 6, albumin of 2. Chest x-ray done today showed lungs are poorly expanded. There are increased interstitial markings in both lungs. These are slightly more prominent. Small left pleural effusion was noted. IMPRESSION AND PLAN: 1. Recurrent hematemesis secondary to esophageal varices. 2. Alcoholic liver cirrhosis. 3. Anemia secondary to chronic liver disease and esophageal varices and hematemesis, gastrointestinal bleed. 4. Altered mental status secondary to alcohol withdrawal. Negative alcohol abuse and alcohol withdrawal. 5. Delirium tremens. 6. Cholelithiasis. 7. Aspiration pneumonia. RECOMMENDATIONS: Will continue with conservative management at this time. He will continue on full ventilator support, which is being managed by critical care team. He will continue on nutrition with Clinimix 60 mL per hour. Will continue to watch blood counts, and he will need to transfuse 1 unit of blood to keep the hemoglobin between 7 to 8 g/dL range. Will avoid any NSAIDs. He will continue on Protonix drip and Sandostatin drip for 72 hours. After that, he will switch to Protonix twice daily. He will continue on vitamin B1 once daily. He is also on sedation, which is being managed by the primary care team and the critical care team. He is on antibiotics with vancomycin and cefepime per the primary team for pneumonia. Will need to start Nadolol once able to start orally. May need TIPSS if continues have recurrent esophageal variceal bleeding. Will continue to follow along. The above plan was discussed with the patient's family at bedside and nursing staff, and all questions were answered. Please call with any further questions. cc: MD Larry Hendrickson MD Traci C. McCormick, MD MTDD
[2019-08-22] MEDS: HALDOL IV PRN (13:18)
--- NOTE | 2019-08-22 13:26 | ENDOSCOPY OPERATIVE NOTE ---
[facility] ENDOSCOPY OPERATIVE NOTE , EGD PROCEDURE REPORT EXAM DATE: 08/20/2019 PATIENT NAME: Amadou De Guzman MR#: [id number] BIRTHDATE: 1960 ATTENDING: Lucius Agarwal MD STATUS: inpatient [employer] CREWMEMBER: Purnima Malloy INDICATIONS: The patient is a 59 yr old male here for an EGD due to hematemesis, acute post hemorrha gic anemia, and recent EGD and banding for acute variceal bleeding. PROCEDURE PERFORMED: EGD w/ band ligation of varices MEDICATIONS: Per Anesthesia ESTIMATED BLOOD LOSS: None CONSENT: The family understands the risks and benefits of the procedure and understands that these ri sks include, but are not limited to: sedation, allergic reaction, infection, perforation and/or bleeding. Alternative means of evaluation and treatment include, among others: physical exam, x-rays, and/or surgical intervention. The patient elects to proceed with this endoscopic procedure. DESCRIPTION OF PROCEDURE: During pre-op preparation period all mechanical and medical equipment was c hecked for proper function. Hand hygiene and appropriate measures for infection prevention was taken. After the risks, benefits and alternatives of the procedure were thoroughly explained, Informed consent was verified, confirmed and timeout was successfully executed by the treatment team. The patient was anesthetized with topical anesthesia and the [id number] ([id number]) endoscope was introduced through the mouth and advanced to the second portion of the duoden um. Retroflexion of the stomach was not performed. The gastroscope was then slowly withdrawn and removed. The patien t's toleration of the procedure was excellent. ESOPHAGUS: There were 3 columns of large varices in the mid esophagus and distal esophagus. The vari angela were bleeding. Bleeding was seen coming from one of the previously placed band. Pulsatile, brisk and appeared to be arterial. Complete hemostasis was achieved by placing. Multipl e non-bleeding, round and clean-based ulcers were found. STOMACH: Full of blood and blood clots. Could not be examined adequately. DUODENUM: The duodenal mucosa showed no abnormalities. ADVERSE EVENTS: There were no complications. IMPRESSIONS: 1. There were 3 columns of large esophageal varices and varices in the mid esophagu s and distal esophagus; Bleeding was seen coming from one of the previously placed band. Pulsatile, brisk and appeared to be arterial.; Complete hemostasis was achieved by placing one band. 2. Multiple ulcers were found 3. Full of blood and blood clots. Could not be examined adequately 4. The duodenal mucosa showed no abnormalities RECOMMENDATIONS: 1. Resume pre-procedure medications, sanostatin and protonix drip. Keep him enubatedand sedated for atleast tonight. 2. Recheck HandH and transfuse as needed. 3. Transfer to ICU REPEAT EXAM: Lucius Agarwal MD eSigned: Lucius Agarwal MD 08/20/2019 3:44 PM CC: Elvis Ding MD CPT CODES: 98394 Upper gastrointestinal endoscopy including esophagus, stomach, and either the du odenum and/or jejunum as appropriate; with band ligation of esophageal and/or gastric varices ICD CODES: 456.1 Esophageal varices without mention of bleeding The ICD and CPT codes recommended by this software are interpretations from the data that the [facility] staff has captured with the software. The verification of the translation of this report to the ICD and CPT co viri and modifiers is the sole responsibility of the health care institution and practicing physician where this report was generated. [employer] will not be held responsible for the validity of the ICD and CPT codes i ncluded on this report. AMA assumes no liability for data contained or not contained herein. CPT is a registered tra demark of the [employer]. PATIENT NAME: Amadou De Guzman MR#: [id number]
[2019-08-22 14:47] LABS: ALLEN TEST YES; BE -1.1 mmoll (-3.0-3.0); BLOOD TYPE ARTERIAL; HCO3-(ACT) 24.1 mmoll (20.0-26.0); PCO2(98.6) 23 mmHg (35-45); PO2(98.6) 195 mmHg (60-100); SAMPLE BLOOD; pH(98.6) 7.54 (7.35-7.45)
[2019-08-22 14:49] LABS: MODALITY VENTILATOR
--- NOTE | 2019-08-22 15:30 | NEUROLOGY PROGRESS NOTE ---
DATE: 08/22/2019 SUBJECTIVE: I reviewed the notes from last week. The patient's mental status seemed to improve toward the end of the week but unfortunately he had repeat hematemesis and a emergent EGD with repeat banding over the weekend. He was intubated and continues intubated and on propofol. OBJECTIVE: Temperature is 100 degrees Fahrenheit. Blood pressure 125/59, pulse 85. There were a few hypotensive blood pressure readings on Thursday, 99 systolic over 50s to 60s diastolic. Pulse 85, Mr. De Guzman is supine in bed on the ventilator. He has eyes are closed. He appears comfortable and is on propofol. He does not respond to voice plus tactile stimulation. His pupils are equal, round, and reactive to bright light bilaterally. Gaze is conjugate. There is some horizontal eye movement with passive head turning. Corneal reflexes are present bilaterally. No blink to threat. Face appears symmetric at rest. Tone is equal in the limbs. There was not spontaneous movement of the limbs. LABORATORY DATA: White count 13.45, hemoglobin 8.6, hematocrit 26.6, platelets 233,000. Normal sodium, BUN, creatinine. Calcium is 7.9. AST 49, ALT 21. ASSESSMENT AND PLAN: Global encephalopathy without focal feature. Multifactorial with evidence of improvement later in the week last week. Current presentation likely pharmacologic effect as well. I would suggest continuing to manage his medical problems and hopefully his encephalopathy will again show improvement after the sedation is worn off and he improves medically. If there is any question we can consider a routine EEG and/or brain imaging. cc: Brenda Arriaga MD MTDD
[2019-08-22 17:54] LABS: HEMATOCRIT 25.2 % (42.0-52.0)
--- NOTE | 2019-08-22 18:24 | PROVIDER PROGRESS NOTE ---
Progress Note Dr. Holley Progress Note/Pulmonary and or critical care We appreciated progress of care, Complications, change in diagnosis, and instructions to patient. Subjective: We note the level of consciousness, bed (chair) position, family presence (if any), level of lethargy, feeling of symptoms, and changes from baseline condition/symptom. The patient remains intubated and sedated with Diprivan. He is in low fever at this time with extremities warm on touch. No acute episode overnight noted. Macho vaughn trials will start soon. Girlfriend at the bedside. Objective: Vital Signs: We reviewed EMR current values for Pulse rate, Blood pressure, Pulse rate, respi ratory rate and Pulse oximetry. Also noted other values and trends if present (e.g. I/O, CVP). T 100.0 (the highest temperature in last 24 hours), DE 85, RR 14, BP 125/59 and SaO2 95% on AC 12, 40%, 700, 5. I/O +685 ml Physical Examination: General: Intubated. Lying in bed with no acute distress noted. Mildly warm on touch. HEENT: Normocephalic. Trachea midline. ET tube in place. Chest: Mechanically ventilated. Symmetrical excursion. Clear to auscultation bilaterally. CVS: Regular rate and rhythm with S1 and S2 appreciated. Abdomen: Soft. Mildly distended. Normoactive bowel sounds in all 4 quadrants noted. Extremities: BLE and BUE pitting edema 1+. Neuro: Sedated. Labs and Radiology: Reviewed available labs and radiology values available at time of EMR review. Laboratory Results 08/22/19 08/22/19 08/22/19 05:00 05:00 05:02 WBC 13.45 H RBC 2.75 L Hgb 8.6 L Hct 26.6 L MCV 96.7 MCH 31.3 H MCHC 32.3 L RDW Std Deviation 16.5 H Plt Count 233 MPV 11.5 H Specimen Type ARTERIAL Sample Site R RADIAL pH 7.50 H pCO2 24 L pO2 134 H HCO3 22.2 Base Excess -3.5 L Oxyhemoglobin 96.7 ABG O2 Sat (Calculated) 12.5 L ABG O2 Saturation 99.8 ABG Carboxyhemoglobin 1.90 ABG Methemoglobin 1.2 Cem Test YES A-a O2 Difference 121.0 Total Hemoglobin 9.0 L Lactate 1.50 Blood Gas Modality VENTILATOR Vent Mode A/C Spontaneous Rate 12 FiO2 % 40.0 Tidal Volume 700 PEEP 5.0 Pressure Support Sodium 142 Potassium 4.2 Chloride 114 H Carbon Dioxide 18 L Anion Gap 10 BUN 14 Creatinine 0.8 Estimated GFR/1.73 m2 > 60 BUN/Creatinine Ratio 18 Glucose 143 H Calculated Osmolality 286 Calcium 7.9 L Phosphorus 3.0 Magnesium 2.0 Total Bilirubin 1.66 H AST 49 H ALT 21 Alkaline Phosphatase 120 Total Protein 6.0 L Albumin 2.0 L Globulin 4.0 Albumin/Globulin Ratio 0.5 08/22/19 08/22/19 14:38 17:35 WBC RBC Hgb 8.0 L Hct 25.2 L MCV MCH MCHC RDW Std Deviation Plt Count MPV Specimen Type ARTERIAL Sample Site R RADIAL pH 7.54 H pCO2 23 L pO2 195 H HCO3 24.1 Base Excess -1.1 Oxyhemoglobin ABG O2 Sat (Calculated) ABG O2 Saturation ABG Carboxyhemoglobin ABG Methemoglobin Cem Test YES A-a O2 Difference 61.0 Total Hemoglobin Lactate 1.40 Blood Gas Modality VENTILATOR Vent Mode CPAP Spontaneous Rate FiO2 % 40.0 Tidal Volume PEEP 5.0 Pressure Support 5.00 Sodium Potassium Chloride Carbon Dioxide Anion Gap BUN Creatinine Estimated GFR/1.73 m2 BUN/Creatinine Ratio Glucose Calculated Osmolality Calcium Phosphorus Magnesium Total Bilirubin AST ALT Alkaline Phosphatase Total Protein Albumin Globulin Albumin/Globulin Ratio Assessment: Acute respiratory failure. Intubated on 08/20/19. Anemia of acute blood loss secondary to esophageal varix bleeding. S/P EGD with repeat banding on 08/20/19. Bilateral infiltrates concerning for aspiration pneumonia vs. hospital-acquired pneumonia. Plan: Continue current treatment and supportive care per admitting and other teams on the case. Daily weaning trials. Ventilation checked and titrated to patients needs per clinical protocol with closely monitoring. Sedation (Propofol) titrated to patients needs per clinical protocol with closely monitoring. Antibiotics (Cefepime and vancomycin) and bronchodilators. Tobacco cessation education when appropriate. Appropriate DVT and GI prophylaxis Discuss patients condition and care plan with patients girlfriend at the bedside. Input was appreciated from Admitting MD and other teams on the case. Evaluation time in minutes: 34 minutes.
[2019-08-22] MEDS: FLOMAX PO SCH (20:08)
[2019-08-22] MEDS: SEROQUEL PO SCH (20:09)
[2019-08-23] MEDS: VANCOMYCIN 1.9 GM in NS 500 ML IV SCH ×2 (00:28→12:17)
[2019-08-23] MEDS: SANDOSTATIN 500 MICROGM in D5W 100 ML IV SCH ×3 (01:11→22:00)
[2019-08-23] MEDS: PROTONIX IV SCH ×2 (01:12→13:23)
[2019-08-23] MEDS: HALDOL IV PRN (02:23)
[2019-08-23] MEDS: CLINIMIX E 4.25%-5% SOLUTION 1,000 ML IV SCH ×2 (02:25→18:27)
[2019-08-23] MEDS: MAXIPIME 1 GM in NS 50 ML IV SCH ×3 (02:30→18:29)
[2019-08-23] MEDS: ATROVENT NEB INH SCH ×4 (04:00→21:54)
[2019-08-23] MEDS: XOPENEX NEB INH SCH ×4 (04:00→21:54)
[2019-08-23 05:33] LABS: ALLEN TEST YES; BE -3.2 mmoll (-3.0-3.0); BLOOD TYPE ARTERIAL; HCO3-(ACT) 22.4 mmoll (20.0-26.0); PCO2(98.6) 28 mmHg (35-45); PO2(98.6) 69 mmHg (60-100); SAMPLE BLOOD; pH(98.6) 7.45 (7.35-7.45)
[2019-08-23 05:35] LABS: MODALITY CANNULA
[2019-08-23 05:58] LABS: BASO# 0.09 X1000 (0.0-0.2); BASO% 0.6 % (0.0-0.8); EOS# 0.44 X1000 (0.0-0.7); HEMATOCRIT 25.1 % (42.0-52.0); HEMOGLOBIN 7.8 g/dL (14.0-18.0); IMM GRAN% 0.7 % (0.0-0.5); LYMPH# 2.47 X1000 (1.2-3.4); MCHC 31.1 g/dL (33-37); MCV 96.5 FL (81-99); MONO# 1.95 X1000 (0.11-0.59); MONO% 13.4 % (1.7-9.3); MPV 10.7 FL (7.4-10.4); NEUT% 65.3 % (42.2-75.2); PLT 232 X1000 (130-400); RDW 15.9 % (11.5-14.5); WBC 14.55 X1000 (4.8-10.8)
[2019-08-23 06:30] LABS: AGAP 9; BUN 11 mg/dL (8-22); CALCIUM 8.1 mg/dL (8.8-10.2); CHLORIDE 113 mmol/L (98-107); COSMO 276; CREATININE 0.8 mg/dL (0.7-1.2); ESTIMATED GFR > 60; GLUCOSE 109 mg/dL (70-104); MAGNESIUM 1.8 mg/dL (1.5-2.7); PHOSPHORUS 2.9 mg/dL (2.7-4.5); POTASSIUM 5.3 mmol/L (3.5-5.1); SODIUM 138 mmol/L (136-145); TCO2 16 mmol/L (25-35)
--- NOTE | 2019-08-23 07:46 | Diag Imaging Result Doc PS360 ---
EXAM: CHEST-PORTABLE INDICATION: while intubated TECHNIQUE: One view COMPARISON: 08/22/2019 FINDINGS: The right PICC line is in stable position. There has been interval extubation. Increased interstitial markings suggesting mild edema are approximately stable. No new consolidation is identified. Cardiac silhouette is stable. IMPRESSION: Stable chest. Electronically signed by Juan Ramon David 08/23/2019 7:44 AM
--- NOTE | 2019-08-23 07:57 | PROGRESS NOTE ---
DATE: 08/23/2019 SUBJECTIVE: This patient has been extubated yesterday. He is unrestrained. He is oriented x2. He is not oriented to time. He does not know who is the academic affairs vice president. He is following commands. He has been agitated on and off. OBJECTIVE: Vital Signs: Temperature 98 degrees, pulse 91, respiratory rate 22, blood pressure 144/82, oxygen saturation 96 on 4 L of nasal cannula. HEENT: Head normocephalic, no trauma. PERRLA. Neck: Supple. No JVD. No masses. Central trachea. Chest: Clear to auscultation. Some crepitus at the bases. Abdomen: Soft, nontender, nondistended. No hepatosplenomegaly. Extremities: No edema, no clubbing, no cyanosis. Neurological: The patient is awake, alert, and oriented x2, he is following commands. Not oriented to time. He does not know who is the academic affairs vice president. LABORATORY: WBC 14.5, hemoglobin 7.8, hematocrit 25.1, platelets 232,000. Sodium 138, potassium 5.3, chloride 113, bicarbonate 16, BUN 11, creatinine 0.8, glucose 109, calcium 8.1, phosphorus 2.9, magnesium 1.8. ASSESSMENT AND PLAN: 1. Severe hematemesis secondary to esophageal varices. This is the 2nd time that this patient has a similar episode and he had an emergent EGD about 3 days ago with banding as well. At this moment he not on mechanical ventilation. He was extubated yesterday and he seems to be stable, where hemoglobin dropped to 7.8 and Gastroenterology Department asked for 1 unit of PRBC. 2. Anemia of acute blood loss from upper gastrointestinal bleed status post 4 units of PRBCs. He received 2 units 3 days ago when he was having an episode of hematemesis and today he is going to receive a new 1. 3. Altered mental status on presentation, likely due to alcohol withdrawal. He is still confused a little bit. He was extubated yesterday. Continue with same management. Neurology Department on board. 4. Alcohol use and abuse prior to hospitalization with withdrawal symptoms, aware. 5. Cholelithiasis versus gallbladder polyps, Surgery on board. 6. Bilateral upper lobe infiltrate concerning for aspiration pneumonia versus hospital acquired pneumonia. Continue with same management. He is on antibiotics. 7. Generalized weakness and physical deconditioning. Once this patient is better we will go ahead and do physical therapy and occupational therapy. CRITICAL CARE TIME: 35 minutes. cc: Larry Foster MD
[2019-08-23] MEDS: THERA M PLUS PO SCH (08:01)
[2019-08-23] MEDS: VITAMIN B-1 PO SCH (08:01)
[2019-08-23] MEDS: FOLIC ACID PO SCH (08:01)
[2019-08-23] MEDS: NEURONTIN PO SCH ×2 (08:01→21:17)
[2019-08-23] MEDS: FERROUS SULFATE PO SCH (08:01)
[2019-08-23] MEDS ORDERED: NS 500 ML IV ONE (09:33)
[2019-08-23 13:03] LABS: HEMATOCRIT 29.3 % (42.0-52.0); HEMOGLOBIN 9.3 g/dL (14.0-18.0)
[2019-08-23] MEDS: LACTULOSE PO SCH ×2 (13:23→17:18)
--- NOTE | 2019-08-23 16:52 | GASTROENTEROLOGY PROGRESS NOTE ---
DATE: 08/23/2019 Mr. De Guzman is a 59-year-old male. He has been extubated. He is alert oriented x 2,can state his name, date of , but does have periods of confusion. He is currently on soft restraints. The patient is on a clear liquid diet. His hemoglobin and hematocrit have been trending upwards today. The patient has so far received total of 5 units of blood. OBJECTIVE: Vital Signs: Temperature 97.8 degrees, pulse 88, respirations 25, blood pressure 132/76, oxygen saturation 98% on 4 L nasal cannula. His weight is 198 pounds. BMI is 25.5 kg/m2. General: Patient is confused, but he is able to tell his name and date of . HEENT: Pale conjunctivae. No icterus. PERRL. Neck: Supple. Lungs: Clear to auscultation. Cardiovascular: Patient has regular rate and rhythm. Abdomen: Soft, nontender, nondistended. Active bowel sounds heard in all 4 quadrants. Extremities: No clubbing, no cyanosis. Neurologic: He is alert, oriented x2 with periods of confusion. LAB: WBCs of 14.55, RBCs 2.60, hemoglobin is 9.3, hematocrit is 29.3, platelet count is 232,000. Sodium 138, potassium 5.3, chloride 113, carbon dioxide 16, anion gap is 9, BUN is 11, creatinine is 9.8, glucose 109, calcium is 8.1, phosphorus 2.9, magnesium is 1.8. IMAGING: Patient's chest x-ray today has shown stable chest. IMPRESSION AND PLAN: Recurrent hematemesis Esophageal varices Acute blood loss anemia Altered mental status PLAN: Mr. De Guzman is a 59-year-old male with a history of esophageal varices. The patient had an patient had an endoscopy done on 08/20/2019. He had 3 columns of large esophageal varices and varices in the mid esophagus. Multiple ulcers were found. There was full of blood and blood clots. The duodenal mucosa had no abnormalities. The patient is currently on Clinimix 60 mL/h. We will continue to monitor his hemoglobin and hematocrit. He is on Sandostatin drip at 10 mL/h and receiving Protonix 40 mg IV twice a day. We started him on lactulose 30 mL p.o. 3 times a day. We will continue to monitor the patient and follow the plan of care per PCP. This plan was discussed with Dr. Valdez. Please call us for any further questions or concerns. Dictated by LIVIA Pryor for Todd Valdez MD MTDD
--- NOTE | 2019-08-23 18:45 | PROVIDER PROGRESS NOTE ---
Progress Note Dr. Holley Progress Note/Pulmonary and or critical care We appreciated progress of care, Complications, change in diagnosis, and instructions to patient. Subjective: We note the level of consciousness, bed (chair) position, family presence (if any), level of lethargy, feeling of symptoms, and changes from baseline condition/symptom. The patient was successfully extubated yesterday afternoon. He is lying in bed on NC 4L with no acute distress noted. He appears asleep. As I call his name, he opens his eyes, but he does not say anything and immediately falls back asleep. Objective: Vital Signs: We reviewed EMR current values for Pulse rate, Blood pressure, Pulse rate, respiratory rate and Pulse oximetry. Also noted other values and trends if present (e.g. I/O, CVP). T 97.8 (no fever in last 24 hours), MN 86, RR 20, BP 130/67 and SaO2 96% on NC 4L. I/O +770 ml Physical Examination: General: Lying in bed with no acute distress noted. HEENT: Normocephalic. Trachea midline. Mucosa pink and moist. Chest: Even and unlabored. Symmetrical excursion. Clear to auscultation bilaterally. CVS: Regular rate and rhythm with S1 and S2 appreciated. Abdomen: Soft. Mildly distended. Normoactive bowel sounds in all 4 quadrants noted. Extremities: BLE and BUE pitting edema 1+. Neuro: Asleep. Labs and Radiology: Reviewed available labs and radiology values available at time of EMR review. Laboratory Results 08/19/19 08/23/19 08/23/19 10:04 05:00 05:00 WBC 14.55 H RBC 2.60 L Hgb 7.8 L Hct 25.1 L MCV 96.5 MCH 30.0 MCHC 31.1 L RDW Std Deviation 15.9 H Plt Count 232 MPV 10.7 H Immature Gran % (Auto) 0.7 H Neut % (Auto) 65.3 Lymph % (Auto) 17.0 L Lander % (Auto) 13.4 H Eos % (Auto) 3.0 Baso % (Auto) 0.6 Immature Gran # (Auto) 0.10 H Neut # (Auto) 9.50 H Lymph # (Auto) 2.47 Lander # (Auto) 1.95 H Eos # (Auto) 0.44 Baso # (Auto) 0.09 Specimen Type Sample Site pH pCO2 pO2 HCO3 Base Excess Cem Test A-a O2 Difference Lactate Liter Flow Blood Gas Modality FiO2 % Sodium 138 Potassium 5.3 H D Chloride 113 H Carbon Dioxide 16 L Anion Gap 9 BUN 11 Creatinine 0.8 Estimated GFR/1.73 m2 > 60 BUN/Creatinine Ratio 14 Glucose 109 H Calculated Osmolality 276 Calcium 8.1 L Phosphorus 2.9 Magnesium 1.8 Blood Type Antibody Screen Crossmatch See Detail 08/23/19 08/23/19 08/23/19 05:20 07:15 12:52 WBC RBC Hgb 9.3 L D Hct 29.3 L MCV MCH MCHC RDW Std Deviation Plt Count MPV Immature Gran % (Auto) Neut % (Auto) Lymph % (Auto) Lander % (Auto) Eos % (Auto) Baso % (Auto) Immature Gran # (Auto) Neut # (Auto) Lymph # (Auto) Lander # (Auto) Eos # (Auto) Baso # (Auto) Specimen Type ARTERIAL Sample Site R RADIAL pH 7.45 pCO2 28 L pO2 69 HCO3 22.4 Base Excess -3.2 L Cem Test YES A-a O2 Difference 181.0 Lactate 1.40 Liter Flow 5.0 Blood Gas Modality CANNULA FiO2 % 40.0 Sodium Potassium Chloride Carbon Dioxide Anion Gap BUN Creatinine Estimated GFR/1.73 m2 BUN/Creatinine Ratio Glucose Calculated Osmolality Calcium Phosphorus Magnesium Blood Type B POSITIVE Antibody Screen NEGATIVE Crossmatch See Detail Assessment: Acute respiratory failure. Intubated on 08/20/19. Extubated on 08/22/19. Anemia of acute blood loss secondary to esophageal varix bleeding. S/P EGD with repeat banding on 08/20/19. Bilateral infiltrates concerning for aspiration pneumonia vs. hospital-acquired pneumonia. Prognosis is guarded. Plan: Continue current treatment and supportive care per admitting and other teams on the case. Supplemental oxygen titrated to patients needs per clinical protocol with closely monitoring. Antibiotics (Cefepime and vancomycin) and bronchodilators. Tobacco cessation education when appropriate. Appropriate DVT and GI prophylaxis Discuss patients condition and care plan with patients girlfriend at the bedside. Input was appreciated from Admitting MD and other teams on the case. Evaluation time in minutes: 34 minutes.
[2019-08-23] MEDS: FLOMAX PO SCH (21:16)
[2019-08-23] MEDS: SEROQUEL PO SCH (21:56)
[2019-08-24] MEDS: VANCOMYCIN 1.9 GM in NS 500 ML IV SCH (00:06)
[2019-08-24] MEDS: PROTONIX IV SCH ×2 (02:23→15:21)
[2019-08-24] MEDS: MAXIPIME 1 GM in NS 50 ML IV SCH ×3 (03:27→19:48)
[2019-08-24] MEDS: ATROVENT NEB INH SCH ×4 (03:43→21:55)
[2019-08-24] MEDS: XOPENEX NEB INH SCH ×4 (03:44→21:55)
[2019-08-24 06:14] LABS: AGAP 10; ALB/GLOB RATIO 0.6; ALBUMIN 2.2 g/dL (3.5-5.0); ALKALINE PHOSPHATASE 100 U/L (32-122); BASO# 0.07 X1000 (0.0-0.2); BASO% 0.6 % (0.0-0.8); BUN 8 mg/dL (8-22); CHLORIDE 110 mmol/L (98-107); COSMO 282; CREATININE 0.7 mg/dL (0.7-1.2); EOS# 0.42 X1000 (0.0-0.7); EOS% 3.7 % (0.0-10.0); ESTIMATED GFR > 60; GLUCOSE 113 mg/dL (70-104); GOT 48 U/L (10-34); GPT 20 U/L (10-44); HEMATOCRIT 26.9 % (42.0-52.0); HEMOGLOBIN 8.6 g/dL (14.0-18.0); IMM GRAN% 0.9 % (0.0-0.5); LYMPH# 1.92 X1000 (1.2-3.4); LYMPH% 16.8 % (20.5-51.1); MCH 30.4 PG (27-31); MCV 95.1 FL (81-99); MONO# 1.52 X1000 (0.11-0.59); MONO% 13.3 % (1.7-9.3); MPV 10.6 FL (7.4-10.4); NEUT% 64.7 % (42.2-75.2); PLT 221 X1000 (130-400); POTASSIUM 3.8 mmol/L (3.5-5.1); RBC 2.83 XMIL (4.7-6.1); RDW 16.4 % (11.5-14.5); SODIUM 142 mmol/L (136-145); TCO2 22 mmol/L (25-35); TOTAL BILIRUBIN 2.14 mg/dL (0.20-1.00); TOTAL PROTEIN 5.9 g/dL (6.3-8.3); WBC 11.43 X1000 (4.8-10.8)
--- NOTE | 2019-08-24 07:19 | Diag Imaging Result Doc PS360 ---
EXAM: CHEST-PORTABLE HISTORY: while intubated TECHNIQUE: Single view COMPARISON: 08/23/2019 FINDINGS: The lungs are poorly expanded. The heart remains mildly enlarged. There is pulmonary edema. Development of right basilar infiltrates and atelectasis. There is also small right pleural effusion. No change in the right-sided PICC line. IMPRESSION: Interval worsening Electronically signed by Filippo Bentley 08/24/2019 7:17 AM
[2019-08-24] MEDS ORDERED: LASIX IV ONE ×2 (07:28→10:15)
--- NOTE | 2019-08-24 08:03 | PROGRESS NOTE ---
DATE: 08/24/2019 SUBJECTIVE: This patient has been extubated 2 days ago. He is not on restraints. He is oriented x2. He is not oriented to time. He is following commands on and off. He has been agitated on and off as well. I will stop the Clinimix at this moment. He has been placed on a liquid diet, and it looks like he is tolerating that. He has some fluid in his lungs that actually looks worse compared with yesterday, so I will give him 1 dose of Lasix. OBJECTIVE: Vital Signs: Temperature 97.2 degrees, pulse 77, respiratory rate 18, blood pressure 137/59, oxygen saturation 98 on 4 L of nasal cannula. HEENT: Head normocephalic. No trauma. PERRLA. Neck: Supple. No JVD. No masses. Central trachea. Chest: Clear to auscultation. Some crepitus at the bases. Abdomen: Soft, nontender, nondistended. No hepatosplenomegaly. Extremities: No edema, no clubbing, no cyanosis. Neurological: The patient is sleepy, but arousable. He is oriented x2, but it is hard to understand what he says. He is following commands on and off most of the time, and not oriented to time. LABORATORY DATA: WBC 11.4, hemoglobin 8.6, hematocrit 26.9, platelets 221,000. Sodium 142, potassium 3.8, chloride 110, bicarbonate 22, BUN 8, creatinine 0.7, glucose 113, calcium 8. AST 48, ALT 20, alkaline phosphatase 100, albumin 2.2. ASSESSMENT AND PLAN: 1. Severe hematemesis secondary to esophageal varices. This is the second time that this patient had a similar episode, and he had an emergent esophagogastroduodenoscopy about 4 days ago with banding as well. He was extubated 2 days ago, and he seems to be breathing fine, but the x- ray looks worse with pulmonary edema and infiltrates. He received an extra unit of packed red blood cells yesterday, so in total, he has got 5 units during this hospitalization. We will monitor this patient closely. Probably, we need to stop the octreotide drip, but I will let Gastroenterology Department to decide that. 2. Anemia of acute blood loss, status post multiple packed red blood cells. The last one was yesterday. 3. Altered mental status on presentation, likely due to alcohol withdrawal. He is still confused a little bit. He was extubated 2 days ago. Continue with the same management. Continue multivitamins, including thiamine and folic acid. 4. Alcohol use and abuse prior to hospitalization with withdrawal symptoms. Aware. He has been having some agitation on and off, mostly during the night. 5. Cholelithiasis versus gallbladder polyps. Aware. 6. Right basilar infiltrate and atelectasis concerning for pneumonia. Continue with antibiotics. 7. Generalized weakness and physical deconditioning. I have requested again Physical Therapy and Occupational Therapy to evaluate this patient. cc: Larry Foster MD
[2019-08-24] MEDS: NEURONTIN PO SCH (08:10)
[2019-08-24] MEDS: LACTULOSE PO SCH ×3 (08:10→16:51)
[2019-08-24] MEDS: THERA M PLUS PO SCH (08:10)
[2019-08-24] MEDS: VITAMIN B-1 PO SCH (08:10)
[2019-08-24] MEDS: FOLIC ACID PO SCH (08:10)
[2019-08-24] MEDS: SANDOSTATIN 500 MICROGM in D5W 100 ML IV SCH (09:08)
--- NOTE | 2019-08-24 11:16 | PROVIDER PROGRESS NOTE ---
Progress Note Dr. Holley Progress Note/Pulmonary and or critical care We appreciated progress of care, Complications, change in diagnosis, and instructions to patient. Subjective: We note the level of consciousness, bed (chair) position, family presence (if any), level of lethargy, feeling of symptoms, and changes from baseline condition/symptom. The patient is lying in bed with no acute distress noted. He is on NC 4L at this time and tolerates well. He appears confused at this time. He knows he is in the hospital, his full name, , but he tells me Irwin is the president. He wraps himself up with several blankets, but denies he has chill. RN reports he has been doing fine, but a little bit restless. Objective: Vital Signs: We reviewed EMR current values for Pulse rate, Blood pressure, Pulse rate, respiratory rate and Pulse oximetry. Also noted other values and trends if present (e.g. I/O, CVP). T 98.4 (no fever in last 24 hours), OR 72, RR 17, BP 130/58 and SaO2 96% on NC 4L. I/O +935 ml Physical Examination: General: Lying in bed with no acute distress noted. HEENT: Normocephalic. Trachea midline. Mucosa pink and moist. Chest: Even and unlabored. Symmetrical excursion. Auscultation reveals inspiratory crackles bilaterally. CVS: Regular rate and rhythm with S1 and S2 appreciated. Abdomen: Soft. Mildly distended. Normoactive bowel sounds in all 4 quadrants noted. Extremities: BLE and BUE pitting edema 1+. Neuro: A/O x at least 2 with confusion noted. Speech fluent. Follow simple commands. Labs and Radiology: Reviewed available labs and radiology values available at time of EMR review. Laboratory Results 08/23/19 08/23/19 08/24/19 07:15 12:52 05:00 WBC RBC Hgb 9.3 L D Hct 29.3 L MCV MCH MCHC RDW Std Deviation Plt Count MPV Immature Gran % (Auto) Neut % (Auto) Lymph % (Auto) [place] % (Auto) Eos % (Auto) Baso % (Auto) Immature Gran # (Auto) Neut # (Auto) Lymph # (Auto) [place] # (Auto) Eos # (Auto) Baso # (Auto) Sodium 142 Potassium 3.8 D Chloride 110 H Carbon Dioxide 22 L Anion Gap 10 BUN 8 Creatinine 0.7 Estimated GFR/1.73 m2 > 60 BUN/Creatinine Ratio 11 Glucose 113 H Calculated Osmolality 282 Calcium 8.0 L Total Bilirubin 2.14 H AST 48 H ALT 20 Alkaline Phosphatase 100 Total Protein 5.9 L Albumin 2.2 L Globulin 3.7 Albumin/Globulin Ratio 0.6 Crossmatch See Detail 08/24/19 05:00 WBC 11.43 H RBC 2.83 L Hgb 8.6 L Hct 26.9 L MCV 95.1 MCH 30.4 MCHC 32.0 L RDW Std Deviation 16.4 H Plt Count 221 MPV 10.6 H Immature Gran % (Auto) 0.9 H Neut % (Auto) 64.7 Lymph % (Auto) 16.8 L [place] % (Auto) 13.3 H Eos % (Auto) 3.7 Baso % (Auto) 0.6 Immature Gran # (Auto) 0.10 H Neut # (Auto) 7.40 H Lymph # (Auto) 1.92 [place] # (Auto) 1.52 H Eos # (Auto) 0.42 Baso # (Auto) 0.07 Sodium Potassium Chloride Carbon Dioxide Anion Gap BUN Creatinine Estimated GFR/1.73 m2 BUN/Creatinine Ratio Glucose Calculated Osmolality Calcium Total Bilirubin AST ALT Alkaline Phosphatase Total Protein Albumin Globulin Albumin/Globulin Ratio Crossmatch Assessment: Acute respiratory failure. Intubated on 08/20/19. Extubated on 08/22/19. Anemia of acute blood loss secondary to esophageal varix bleeding. S/P EGD with repeat banding on 08/20/19. Bilateral infiltrates concerning for aspiration pneumonia vs. hospital-acquired pneumonia. CXR today shows pulmonary edema with small right pleural effusion and development of basilar infiltrates and atelectasis. Prognosis is guarded. Plan: Continue current treatment and supportive care per admitting and other teams on the case. Supplemental oxygen titrated to patients needs per clinical protocol with closely monitoring. Antibiotics (Cefepime and vancomycin), bronchodilators and diuresis. Tobacco cessation education when appropriate. Appropriate DVT and GI prophylaxis Incentive spirometer. Physical therapy. Discuss patients condition and care plan with patients girlfriend at the bedside. Input was appreciated from Admitting MD and other teams on the case. Evaluation time in minutes: 31 minutes.
[2019-08-24] MEDS: CORGARD PO SCH (11:25)
--- NOTE | 2019-08-24 14:30 | NEUROLOGY PROGRESS NOTE ---
DATE: 08/24/2019 SUBJECTIVE: Mr. De Guzman has continued becoming more alert following intubation and urgent EGD performed over the weekend. OBJECTIVE: On exam now, he is awake, alert, and attentive. He is much brighter, more alert and spontaneous today than when I last saw him 5 days ago. He identified this as a hospital, initially said he was in [place] and then said he was "behind [facility]." He did not provide any correct answers regarding orientation in time but he did look to the white board and then answer "Thursday" correctly. He moved all limbs. Neck is supple. Speech continues dysarthric but is much improved compared to several days ago. I do not have any new thoughts or new suggestions from Neurology standpoint. He has a global encephalopathy with no focal features and no evidence of increased intracranial pressure or seizure. Depending on his clinical course, we might consider workup with EEG and imaging, but these are not urgent. Thanks for asking Neurology to see Mr. De Guzman. cc: MD JERRY Gaffney III
[2019-08-24] MEDS ORDERED: SODIUM CHLORIDE 0.9% 10 ML ONE (15:21)
[2019-08-24] MEDS: VANCOMYCIN 1,600 MG in NS 250 ML IV SCH (16:51)
--- NOTE | 2019-08-24 19:36 | GASTROENTEROLOGY PROGRESS NOTE ---
DATE: 08/24/2019 SUBJECTIVE: Mr. De Guzman is a 59-year-old male. He is resting in bed. Family is at the bedside. The patient is alert, oriented x2. He did not show any signs of agitation today. He was he was talking pretty normally. The patient is not in restraints. He did mention that he was not able to sleep all night. The patient is on a clear liquid diet and he is able to tolerate clear liquids well. The patient did have 1 bowel movement today. OBJECTIVE: Vital Signs: Temperature 98.2 degrees, pulse 76, respirations 18, blood pressure 130/58, oxygen saturation 99% on 4 L nasal cannula. His weight is 206 pounds. BMI is 26.5 kg/m2. General: He is alert, oriented x2. HEENT: Pale conjunctivae. No icterus. PERRL. Neck: Supple. Lungs: Clear to auscultation in the anterior upper lobes. Cardiovascular: Regular rate and rhythm. Abdomen: Soft, nontender, nondistended. Active bowel sounds heard in all 4 quadrants. Extremities: No clubbing, no cyanosis, no edema. Pedal pulses 2+ present bilaterally. Neurologic: He is alert, oriented x2. LABORATORY DATA: WBC is 11.43, RBC is 2.83, hemoglobin is 8.6, hematocrit is 26.9, platelet count is 221,000. His sodium 142, potassium 3.8, chloride 110, carbon dioxide 22, anion gap is 10, BUN is 8, creatinine is 0.7 glucose is 110, calcium is 8.0. IMAGING: Patient's chest x-ray today has shown interval worsening. IMPRESSION AND PLAN 1. Bleeding esophageal varices. 2. Blood loss anemia. 3. Decompensated alcoholic cirrhosis. 4. Alcohol withdrawal - resolved. 5. Hepatic encephalopathy. 6. Aspiration pneumonia PLAN: Mr. De Guzman is a 59-year-old male with a history of esophageal varices. The patient's GI bleed has been under control. Today his hemoglobin is 8.6 and hematocrit 26.9. The patient has so far received 5 units of blood. He is on a clear liquid diet and is able to tolerate his diet as per PCP. His Clinimix has been discontinued. We will continue patient on lactulose 30 mL p.o. 3 times a day. If his bowel movements are greater than greater than 3 in 24 hours, they can put a hold on it he. We also started him on Nadolol 10 mg p.o. with the parameters of if his heart rate is less than 55, hold the medication. He is on PPI twice a day. The patient is also on antibiotic, vancomycin and cefepime, for aspiration pneumonia. We will continue to monitor the patient and follow the plan of care per PCP. This plan was discussed with Dr. Valdez. Please call us for any further questions or concerns. Dictated by LIVIA Pryor for Todd Valdez MD Physician Attestation I have seen and examined the patient. I have discussed and reviewed the note by Anastasia BHAKTA and agree with findings and plan as documented. In brief, Mr. Amadou De Guzman is a 59 year old man who presented with UGIB from bleeding varices s/p EGD and banding with recurrent bleeding from displaced band requiring repeat EGD and banding. Hgb stable. Continue PPI BID and start nadolol 10mg daily. Continue lactulose and titrate for 2-3 BMs daily. Advance diet as tolerated to low sodium diet. Will follow with you. MTDD
[2019-08-25] MEDS: FLOMAX PO SCH ×3 (02:01→23:15)
[2019-08-25] MEDS: SEROQUEL PO SCH ×3 (02:03→23:14)
[2019-08-25] MEDS: NEURONTIN PO SCH ×3 (02:03→23:15)
[2019-08-25] MEDS: PROTONIX IV SCH ×2 (02:05→13:08)
[2019-08-25] MEDS: MAXIPIME 1 GM in NS 50 ML IV SCH ×3 (03:36→23:15)
[2019-08-25] MEDS: XOPENEX NEB INH SCH ×4 (03:40→21:20)
[2019-08-25] MEDS: ATROVENT NEB INH SCH ×4 (03:40→21:20)
[2019-08-25] MEDS: VANCOMYCIN 1,600 MG in NS 250 ML IV SCH (04:34)
[2019-08-25 05:42] LABS: AGAP 11; ALB/GLOB RATIO 0.5; ALBUMIN 1.8 g/dL (3.5-5.0); ALKALINE PHOSPHATASE 92 U/L (32-122); BUN 4 mg/dL (8-22); CALCIUM 7.2 mg/dL (8.8-10.2); CHLORIDE 109 mmol/L (98-107); COSMO 274; CREATININE 0.7 mg/dL (0.7-1.2); ESTIMATED GFR > 60; GLUCOSE 82 mg/dL (70-104); GOT 61 U/L (10-34); GPT 20 U/L (10-44); POTASSIUM 3.8 mmol/L (3.5-5.1); SODIUM 139 mmol/L (136-145); TCO2 19 mmol/L (25-35); TOTAL BILIRUBIN 1.51 mg/dL (0.20-1.00); TOTAL PROTEIN 5.2 g/dL (6.3-8.3)
[2019-08-25 06:15] LABS: BASO# 0.05 X1000 (0.0-0.2); BASO% 0.5 % (0.0-0.8); EOS# 0.36 X1000 (0.0-0.7); EOS% 3.6 % (0.0-10.0); HEMOGLOBIN 8.7 g/dL (14.0-18.0); IMM GRAN# 0.03 X1000 (0.0-0.04); IMM GRAN% 0.3 % (0.0-0.5); LYMPH# 2.04 X1000 (1.2-3.4); LYMPH% 20.1 % (20.5-51.1); MCH 30.4 PG (27-31); MCHC 32.2 g/dL (33-37); MCV 94.4 FL (81-99); MONO# 1.44 X1000 (0.11-0.59); MONO% 14.2 % (1.7-9.3); NEUT# 6.21 X1000 (1.4-6.5); NEUT% 61.3 % (42.2-75.2); PLT 230 X1000 (130-400); RBC 2.86 XMIL (4.7-6.1); RDW 15.7 % (11.5-14.5); WBC 10.13 X1000 (4.8-10.8)
--- NOTE | 2019-08-25 06:42 | Diag Imaging Result Doc PS360 ---
CHEST-PORTABLE - 08/25/2019 INDICATION: while intubated COMPARISON: 08/24/2019 FINDINGS: Stable left PICC line. Stable critically low lung volumes. There has been improvement in the multifocal opacifications in the right lung base. There is also overall improvement in the interstitial pulmonary edema. Heart size remains borderline enlarged. No significant pleural effusion. IMPRESSION: Significant improvement from prior. Electronically signed by Abram Hurley 08/25/2019 6:40 AM
--- NOTE | 2019-08-25 08:58 | PROGRESS NOTE ---
DATE: 08/25/2019 SUBJECTIVE: This patient has been extubated 3 days ago. He is not on restraints. He is oriented x2. He is not oriented to time, but believes it is 2019, which is close enough. He is following commands. He was not agitated during the night and he seems to be following commands slowly. He does have generalized weakness and he is tolerating liquid diet. I do believe this patient can be transferred to the floor since he is getting better. I will also remove the Borrego catheter. OBJECTIVE: Vital Signs: Temperature 98.3 degrees, pulse 68, respiratory rate 20, blood pressure 105/73, oxygen saturation 92 on room air. HEENT: Head normocephalic, no trauma. PERRLA. Neck: Supple. No JVD. No masses. Central trachea. Chest: Clear to auscultation. No wheezing. Some crepitus at the bases. Abdomen: Soft, nontender, nondistended. No hepatosplenomegaly. Some discomfort at the level of the periumbilical area. Extremities: No edema, no clubbing, no cyanosis. Neurological: The patient is sleepy, but arousable. He is oriented x2, but he states that it is 2019, so he is close enough. He is following commands consistently. He seems to be much better compared with yesterday and he has not been agitated. LABORATORY DATA: WBC 10.1, hemoglobin 8.7, hematocrit 27, platelets 230,000. Sodium 139, potassium 3.8, chloride 109, bicarbonate 19, BUN 4, creatinine 0.7, glucose 82, calcium 7.2, albumin 1.8. ASSESSMENT AND PLAN: 1. Severe hematemesis secondary to esophageal viruses. This patient had 2 similar episodes, he had actually an emergent EGD about 5 days ago with banding as well. He was extubated then 3 days ago and he seems to be breathing fine on room air. X-ray looks much better today. He has no significant pulmonary vascular congestion today compared with the previous one. 2. Anemia of acute blood loss, status post multiple packed red blood cells. 3. Altered mental status on presentation, likely due to alcohol withdrawal. This is better continue with the same management, multivitamins. 4. Alcohol use and abuse prior to hospitalization with withdrawal symptoms. Aware. 5. Cholelithiasis versus gallbladder polyps. Aware. 6. Right basilar infiltrate and atelectasis concerning for pneumonia. Continue with antibiotics. 7. Generalized weakness and physical deconditioning. Continue physical therapy and occupational therapy for now. DISPOSITION: Overall this patient is doing much better. I will ask the school social worker to evaluate this patient to see if he wants to go to a rehab center, he is really weak at this moment. This has to be discussed with the family and the patient as well. cc: Larry Foster MD
[2019-08-25] MEDS ORDERED: CORGARD PO SCH (09:00)
[2019-08-25] MEDS: CORGARD PO SCH (09:25)
[2019-08-25] MEDS: VITAMIN B-1 PO SCH (09:25)
[2019-08-25] MEDS: THERA M PLUS PO SCH (09:25)
[2019-08-25] MEDS: FOLIC ACID PO SCH (09:25)
[2019-08-25] MEDS: LACTULOSE PO SCH ×3 (09:26→16:40)
--- NOTE | 2019-08-25 12:01 | GASTROENTEROLOGY PROGRESS NOTE ---
DATE: 08/25/2019 SUBJECTIVE: Mr. De Guzman is a 59-year-old male, resting in bed. Family is at the bedside. The patient is alert and oriented x2. He has not shown any signs of agitation today. He is not on restraints. We have advanced the patient's diet to a low-salt, heart healthy diet. The patient is able to tolerate his diet well. He has been having positive bowel movements. OBJECTIVE: Vital Signs: Temperature 97.4 degrees, pulses 80, respirations 18, blood pressure 144/72, and oxygen saturation 94% on room air. Weight is 174 pounds. BMI is 22.4 kg/m2. General: Patient is alert and oriented x2. HEENT: Pale conjunctivae. No icterus. PERRL. Neck: Supple. Lungs: Clear to auscultation. Cardiovascular: Regular rate and rhythm. Abdomen: Soft. Mildly distended. Active bowel sounds heard in all 4 quadrants. Extremities: No clubbing, no cyanosis, no edema. Pedal pulses 2+ present bilaterally. Neurologic: He is alert and oriented x2. LABORATORY DATA: WBCs are 10.13, RBC 2.86, hemoglobin 8.7, hematocrit 27, and platelet count is 230,000. Sodium is 139, potassium is 3.8, chloride is 109, carbon dioxide is 19, anion gap 11, BUN is 4, creatinine is 0.7 glucose is 8.82, and calcium is 7.2. The patient's total bilirubin is 1.51, AST 61, ALT 20, alkaline phosphatase is 92, and albumin is 1.8. IMAGING: The patient's chest x-ray has shown significant improvement from the prior. IMPRESSION AND PLAN: Esophageal varices required banding twice. GI bleed Anemia Alcoholic cirrhosis Delirium tremens Gallstones Aspiration Pneumonia PLAN: Mr. De Guzman is a 59-year-old male with alcoholic cirrhosis, GI has been following him for his recurrent GI bleed secondary to esophageal varices. The patient is currently alert and oriented x2, and he is not agitated. He was very pleasant and was out of his restraints. His hemoglobin and hematocrit today are 8.7 and 27.0, which has been slightly trending upwards. He has not had any further bleeding episodes. The patient is being transferred to the floor. We will continue with nadolol and PPIs twice a day. The patient's diet has been advanced to low-sodium heart healthy diet. The patient is able to tolerate it. His bleeding has been resolved. This plan was discussed with Dr. Ding. We will sign off for now. Please call us for any further questions. Dictated by LIVIA Pryor for Elvis Ding MD cc: Elvis Ding MD I have seen and examined the patient myself and I agree with the above plan of care. Please call us with any questions or concerns.Follow up in clinic in 4-6 weeks. MTDD
--- NOTE | 2019-08-25 13:09 | NEUROLOGY PROGRESS NOTE ---
DATE: 08/25/2019 SUBJECTIVE: Mr. De Guzman has moved out of ICU. No major Neurologic changes since I saw him yesterday. He asked about being discharged. OBJECTIVE: This morning, he is awake, alert, attentive. He is much more spontaneous and appropriate. Speech is more easily understood. He moved all of his limbs well. I encouraged him to consider rehab for ethanol use disorder. I do not have any new thoughts or new suggestions from a neurology standpoint. Thanks for asking us to see Mr. De Guzman. cc: MD JERRY Gaffney III
--- NOTE | 2019-08-25 17:04 | PROVIDER PROGRESS NOTE ---
Progress Note Dr. Holley Progress Note/Pulmonary and or critical care We appreciated progress of care, Complications, change in diagnosis, and instructions to patient. Subjective: We note the level of consciousness, bed (chair) position, family presence (if any), level of lethargy, feeling of symptoms, and changes from baseline condition/symptom. The patient is lying in bed with no acute distress noted. He is on NC 4L at this time and tolerates well. He appears confused at this time. He knows he is in the hospital, his full name, , but he tells me Irwin is the president. He wraps himself up with several blankets, but denies he has chill. RN reports he has been doing fine, but a little bit restless. Objective: Vital Signs: We reviewed EMR current values for Pulse rate, Blood pressure, Pulse rate, respiratory rate and Pulse oximetry. Also noted other values and trends if present (e.g. I/O, CVP). T 98.6(no fever in last 24 hours), DC 71, RR 19, BP 139/59 and SaO2 100% on NC 4L. I/O +935 ml Physical Examination: General: Lying in bed with no acute distress noted. HEENT: Normocephalic. Trachea midline. Mucosa pink and moist. Chest: Even and unlabored. Symmetrical excursion. Auscultation reveals inspiratory crackles bilaterally. CVS: Regular rate and rhythm with S1 and S2 appreciated. Abdomen: Soft. Mildly distended. Normoactive bowel sounds in all 4 quadrants noted. Extremities: BLE and BUE pitting edema 1+. Neuro: A/O x at least 2 with confusion noted. Speech fluent. Follow simple commands. Labs and Radiology: Reviewed available labs and radiology values available at time of EMR review. Laboratory Results 08/25/19 08/25/19 08/25/19 04:00 04:00 05:30 WBC Cancelled 10.13 RBC Cancelled 2.86 L Hgb Cancelled 8.7 L Hct Cancelled 27.0 L MCV Cancelled 94.4 MCH Cancelled 30.4 MCHC Cancelled 32.2 L RDW Std Deviation Cancelled 15.7 H Plt Count Cancelled 230 MPV Cancelled 11.0 H Immature Gran % (Auto) Cancelled 0.3 Neut % (Auto) Cancelled 61.3 Lymph % (Auto) Cancelled 20.1 L [place] % (Auto) Cancelled 14.2 H Eos % (Auto) Cancelled 3.6 Baso % (Auto) Cancelled 0.5 Immature Gran # (Auto) Cancelled 0.03 Neut # (Auto) Cancelled 6.21 Lymph # (Auto) Cancelled 2.04 [place] # (Auto) Cancelled 1.44 H Eos # (Auto) Cancelled 0.36 Baso # (Auto) Cancelled 0.05 Corrected WBC (Man) Cancelled Sodium 139 Potassium 3.8 Chloride 109 H Carbon Dioxide 19 L Anion Gap 11 BUN 4 L Creatinine 0.7 Estimated GFR/1.73 m2 > 60 BUN/Creatinine Ratio 6 Glucose 82 Calculated Osmolality 274 Calcium 7.2 L Total Bilirubin 1.51 H AST 61 H ALT 20 Alkaline Phosphatase 92 Total Protein 5.2 L Albumin 1.8 L Globulin 3.4 Albumin/Globulin Ratio 0.5 Assessment: Acute respiratory failure. Intubated on 08/20/19. Extubated on 08/22/19. Anemia of acute blood loss secondary to esophageal varix bleeding. S/P EGD with repeat banding on 08/20/19. Bilateral infiltrates concerning for aspiration pneumonia vs. hospital-acquired pneumonia. Prognosis is guarded. Plan: Continue current treatment and supportive care per admitting and other teams on the case. Supplemental oxygen titrated to patients needs per clinical protocol with closely monitoring. Antibiotics (Cefepime and vancomycin), bronchodilators and diuresis. Tobacco cessation education when appropriate. Appropriate DVT and GI prophylaxis Incentive spirometer. Physical therapy. Patient transferring to floor Input was appreciated from Admitting MD and other teams on the case. Evaluation time in minutes: 32 minutes.
[2019-08-25] MEDS: HALDOL IV PRN (23:23)
[2019-08-26] MEDS: PROTONIX IV SCH ×3 (02:57→23:59)
[2019-08-26] MEDS: ATROVENT NEB INH SCH ×4 (03:31→21:10)
[2019-08-26] MEDS: XOPENEX NEB INH SCH ×4 (03:31→21:10)
[2019-08-26 05:56] LABS: BASO# 0.05 X1000 (0.0-0.2); BASO% 0.5 % (0.0-0.8); EOS# 0.36 X1000 (0.0-0.7); EOS% 3.8 % (0.0-10.0); HEMATOCRIT 27.8 % (42.0-52.0); HEMOGLOBIN 8.8 g/dL (14.0-18.0); IMM GRAN# 0.05 X1000 (0.0-0.04); IMM GRAN% 0.5 % (0.0-0.5); LYMPH# 1.96 X1000 (1.2-3.4); LYMPH% 20.9 % (20.5-51.1); MCH 29.6 PG (27-31); MCHC 31.7 g/dL (33-37); MCV 93.6 FL (81-99); MONO# 1.13 X1000 (0.11-0.59); MPV 10.7 FL (7.4-10.4); NEUT# 5.85 X1000 (1.4-6.5); NEUT% 62.3 % (42.2-75.2); PLT 235 X1000 (130-400); RBC 2.97 XMIL (4.7-6.1); RDW 15.6 % (11.5-14.5)
[2019-08-26 06:06] LABS: AGAP 10; ALB/GLOB RATIO 0.5; ALBUMIN 2.1 g/dL (3.5-5.0); ALKALINE PHOSPHATASE 117 U/L (32-122); BUN 5 mg/dL (8-22); CALCIUM 7.9 mg/dL (8.8-10.2); CHLORIDE 109 mmol/L (98-107); COSMO 277; CREATININE 0.7 mg/dL (0.7-1.2); ESTIMATED GFR > 60; GLUCOSE 102 mg/dL (70-104); GOT 53 U/L (10-34); GPT 22 U/L (10-44); MAGNESIUM 1.5 mg/dL (1.5-2.7); PHOSPHORUS 2.9 mg/dL (2.7-4.5); POTASSIUM 3.1 mmol/L (3.5-5.1); SODIUM 140 mmol/L (136-145); TCO2 21 mmol/L (25-35); TOTAL BILIRUBIN 1.34 mg/dL (0.20-1.00)
--- NOTE | 2019-08-26 06:09 | EKG Report ---
Test Performed on : 08/26/2019 06:06:51 AM Test Reason : Reported poss. sinus arrest/pause per telemetry Blood Pressure : / mmHG Vent. Rate : 082 BPM Atrial Rate : 095 BPM P-R Int : 142 ms QRS Dur : 104 ms QT Int : 388 ms P-R-T Axes : 030 007 019 degrees QTc Int : 453 ms Sinus rhythm. with blocked premature atrial complexes. Otherwise normal ECG When compared with ECG of 07-AUG-2019 06:22, (Unconfirmed) premature atrial complexes. are now present QRS duration has increased Nonspecific T wave abnormality now evident in Anterior leads QT has shortened Confirmed by Jose MOYA, Leticia Reese ([id number]) on 08/26/2019 4:35:39 PM
[2019-08-26] MEDS ORDERED: POTASSIUM CHLORIDE 20% LIQUID PO ONE (06:19)
[2019-08-26] MEDS ORDERED: MAGNESIUM SULFATE 1 GM/D5W 1 GM/100 ML IVPB IV ONE (07:01)
[2019-08-26] MEDS ORDERED: KLOR-CON PO ONE (07:01)
--- NOTE | 2019-08-26 07:23 | Diag Imaging Result Doc PS360 ---
EXAM: CHEST-PORTABLE HISTORY: while intubated TECHNIQUE: Single view COMPARISON: 08/25/2019 FINDINGS: Improved inspiratory effort. There are sternal wires. No change in the right-sided PICC line. Heart is mildly prominent. The infiltrates are less pronounced on the current exam. Questionable trace pleural fluid. IMPRESSION: Interval improvement Electronically signed by Filippo Bentley 08/26/2019 7:20 AM
--- NOTE | 2019-08-26 08:51 | PROGRESS NOTE ---
DATE: 08/26/2019 SUBJECTIVE: This patient has been extubated 4 days ago. He looks much better today. He is more awake. He is answering my questions. It is really hard to understand what he says, and he does have generalized weakness. I already placed a consult for the social work manager to evaluate this patient for placement. He cannot walk. PHYSICAL EXAMINATION: Vital Signs: Temperature 99.4 degrees, pulse 84, respiratory rate 20, blood pressure 117/56, oxygen saturation 97% on room air. HEENT: Head is normocephalic, no trauma. PERRLA. Neck: Supple. No JVD. No masses. Central trachea. Chest: Clear to auscultation. No wheezing. No rales. Some crepitus at the bases. Abdomen: Soft, nontender, nondistended. No hepatosplenomegaly. Some discomfort to palpation at the level of the epigastric and periumbilical area. Extremities: There is 1+ lower extremity edema. No clubbing. No cyanosis. Neurological: The patient is awake, alert. She is oriented, but has generalized weakness. LABORATORY DATA: WBC 9.4, hemoglobin 8.8, hematocrit 27.8, platelets 235,000. Sodium 140, potassium 3.1, chloride 109, bicarbonate 21, BUN 5, creatinine 0.7, glucose 102, calcium 7.9, total bilirubin 1.3, AST 53, ALT 22, alkaline phosphatase 117, albumin 2.1. ASSESSMENT AND PLAN: 1. Severe hematemesis secondary to esophageal varices. This patient has had a similar episode previously, and he actually had an emergent esophagogastroduodenoscopy about 6 days ago with banding as well. He was extubated 4 days ago, and he seems to be breathing good on room air. X-ray looks better. Continue with same management. 2. Anemia of acute blood loss, status post 5 packed red blood cells on different dates. 3. Altered mental status on presentation, likely due to alcohol withdrawal. This is getting better. Continue with multivitamins. 4. Alcohol use and abuse prior to this hospitalization with alcohol withdrawal symptoms, aware. 5. Cholelithiasis versus gallbladder polyps, aware. 6. Right basilar infiltrate and atelectasis concerning for pneumonia. Continue with antibiotics. 7. Generalized weakness and physical deconditioning. Continue physical therapy and occupational therapy. 8. Disposition: Overall, this patient is doing better. I already placed a consult for the social work manager to evaluate this patient because he would like to go to a rehab center. He cannot walk. He does have generalized weakness. 9. Hypokalemia. The potassium has been replaced. cc: Larry Foster MD
[2019-08-26] MEDS: LACTULOSE PO SCH ×4 (09:49→16:06)
[2019-08-26] MEDS: THERA M PLUS PO SCH (09:50)
[2019-08-26] MEDS: VITAMIN B-1 PO SCH (09:50)
[2019-08-26] MEDS: FOLIC ACID PO SCH (09:50)
[2019-08-26] MEDS: MAXIPIME 1 GM in NS 50 ML IV SCH ×3 (09:50→23:59)
[2019-08-26] MEDS: NEURONTIN PO SCH ×2 (09:50→20:13)
--- NOTE | 2019-08-26 13:58 | PROVIDER PROGRESS NOTE ---
Progress Note Dr. Holley Progress Note/Pulmonary and or critical care We appreciated progress of care, Complications, change in diagnosis, and instructions to patient. Subjective: We note the level of consciousness, bed (chair) position, family presence (if any), level of lethargy, feeling of symptoms, and changes from baseline condition/symptom. The patient is lying in bed with no acute distress noted. He is on NC 4L at this time and tolerates well. Alert. Family member at bedside. Objective: Vital Signs: We reviewed EMR current values for Pulse rate, Blood pressure, Pulse rate, respiratory rate and Pulse oximetry. Also noted other values and trends if present (e.g. I/O, CVP). T 98.3(no fever in last 24 hours), [place] 84, RR 18, BP 134/65 and SaO2 99% on NC 4L. Physical Examination: General: Lying in bed with no acute distress noted. HEENT: Normocephalic. Trachea midline. Mucosa pink and moist. Chest: Even and unlabored. Symmetrical excursion. Auscultation reveals inspiratory crackles bilaterally. CVS: Regular rate and rhythm with S1 and S2 appreciated. Abdomen: Soft. Mildly distended. Normoactive bowel sounds in all 4 quadrants noted. Extremities: BLE and BUE pitting edema 1+. Neuro: A/O . Speech fluent. Follow simple commands. Management, face to face evaluation by Dr. Holley. Labs and Radiology: Reviewed available labs and radiology values available at time of EMR review. Laboratory Results 08/26/19 08/26/19 08/26/19 05:37 05:37 05:37 WBC 9.40 RBC 2.97 L Hgb 8.8 L Hct 27.8 L MCV 93.6 MCH 29.6 MCHC 31.7 L RDW Std Deviation 15.6 H Plt Count 235 MPV 10.7 H Immature Gran % (Auto) 0.5 Neut % (Auto) 62.3 Lymph % (Auto) 20.9 [place] % (Auto) 12.0 H Eos % (Auto) 3.8 Baso % (Auto) 0.5 Immature Gran # (Auto) 0.05 H Neut # (Auto) 5.85 Lymph # (Auto) 1.96 [place] # (Auto) 1.13 H Eos # (Auto) 0.36 Baso # (Auto) 0.05 Sodium 140 Potassium 3.1 L D Chloride 109 H Carbon Dioxide 21 L Anion Gap 10 BUN 5 L Creatinine 0.7 Estimated GFR/1.73 m2 > 60 BUN/Creatinine Ratio 7 Glucose 102 Calculated Osmolality 277 Calcium 7.9 L Phosphorus 2.9 Magnesium 1.5 Total Bilirubin 1.34 H AST 53 H ALT 22 Alkaline Phosphatase 117 Creatine Kinase 87 Troponin T High Sens Total Protein 6.0 L Albumin 2.1 L Globulin 3.9 Albumin/Globulin Ratio 0.5 08/26/19 05:37 WBC RBC Hgb Hct MCV MCH MCHC RDW Std Deviation Plt Count MPV Immature Gran % (Auto) Neut % (Auto) Lymph % (Auto) [place] % (Auto) Eos % (Auto) Baso % (Auto) Immature Gran # (Auto) Neut # (Auto) Lymph # (Auto) [place] # (Auto) Eos # (Auto) Baso # (Auto) Sodium Potassium Chloride Carbon Dioxide Anion Gap BUN Creatinine Estimated GFR/1.73 m2 BUN/Creatinine Ratio Glucose Calculated Osmolality Calcium Phosphorus Magnesium Total Bilirubin AST ALT Alkaline Phosphatase Creatine Kinase Troponin T High Sens 12 Total Protein Albumin Globulin Albumin/Globulin Ratio Assessment: Acute respiratory failure. Intubated on 08/20/19. Extubated on 08/22/19. Anemia of acute blood loss secondary to esophageal varix bleeding. S/P EGD with repeat banding on 08/20/19. Bilateral infiltrates concerning for aspiration pneumonia vs. hospital-acquired pneumonia. Prognosis is guarded. Plan: Continue current treatment and supportive care per admitting and other teams on the case. Supplemental oxygen titrated to patients needs per clinical protocol with closely monitoring. Antibiotics (Cefepime and vancomycin), bronchodilators and diuresis. Tobacco cessation education when appropriate. Appropriate DVT and GI prophylaxis Incentive spirometer. Physical therapy. Input was appreciated from Admitting MD and other teams on the case. Evaluation time in minutes: 31 minutes.
[2019-08-26] MEDS: SODIUM CHLORIDE 0.9% 10 ML ONE ×2 (15:02→23:59)
[2019-08-26] MEDS: SEROQUEL PO SCH (20:13)
[2019-08-26] MEDS: FLOMAX PO SCH (20:13)
[2019-08-27] MEDS: PROTONIX IV SCH ×2 (01:03→13:57)
[2019-08-27] MEDS: ATROVENT NEB INH SCH ×4 (03:10→21:10)
[2019-08-27] MEDS: XOPENEX NEB INH SCH ×4 (03:10→21:10)
--- NOTE | 2019-08-27 07:09 | Diag Imaging Result Doc PS360 ---
EXAM: CHEST-PORTABLE HISTORY: while intubated TECHNIQUE: Single view COMPARISON: 02/06/2020 FINDINGS: The lungs are well expanded. There are bilateral infiltrates. Heart remains enlarged. No pleural effusions identified. There is a right-sided PICC line. Sternal wires are present. IMPRESSION: Stable chest Electronically signed by Filippo Bentley 08/27/2019 7:07 AM
[2019-08-27 07:43] LABS: BASO# 0.05 X1000 (0.0-0.2); BASO% 0.4 % (0.0-0.8); EOS# 0.44 X1000 (0.0-0.7); EOS% 3.4 % (0.0-10.0); HEMATOCRIT 27.4 % (42.0-52.0); HEMOGLOBIN 8.7 g/dL (14.0-18.0); IMM GRAN# 0.04 X1000 (0.0-0.04); IMM GRAN% 0.3 % (0.0-0.5); LYMPH# 1.85 X1000 (1.2-3.4); LYMPH% 14.2 % (20.5-51.1); MCH 29.8 PG (27-31); MCHC 31.8 g/dL (33-37); MCV 93.8 FL (81-99); MONO# 1.23 X1000 (0.11-0.59); MONO% 9.5 % (1.7-9.3); MPV 11.2 FL (7.4-10.4); NEUT# 9.39 X1000 (1.4-6.5); NEUT% 72.2 % (42.2-75.2); PLT 202 X1000 (130-400); RBC 2.92 XMIL (4.7-6.1); RDW 15.7 % (11.5-14.5)
[2019-08-27 08:31] LABS: AGAP 11; ALB/GLOB RATIO 0.6; ALBUMIN 2.4 g/dL (3.5-5.0); ALKALINE PHOSPHATASE 151 U/L (32-122); BUN 5 mg/dL (8-22); CALCIUM 8.3 mg/dL (8.8-10.2); CHLORIDE 108 mmol/L (98-107); COSMO 275; CREATININE 0.8 mg/dL (0.7-1.2); ESTIMATED GFR > 60; GLUCOSE 111 mg/dL (70-104); GOT 85 U/L (10-34); GPT 29 U/L (10-44); MAGNESIUM 1.6 mg/dL (1.5-2.7); PHOSPHORUS 2.8 mg/dL (2.7-4.5); POTASSIUM 3.7 mmol/L (3.5-5.1); SODIUM 139 mmol/L (136-145); TCO2 20 mmol/L (25-35); TOTAL BILIRUBIN 1.45 mg/dL (0.20-1.00); TOTAL PROTEIN 6.4 g/dL (6.3-8.3)
[2019-08-27] MEDS: MAXIPIME 1 GM in NS 50 ML IV SCH ×2 (10:18→17:08)
[2019-08-27] MEDS: FOLIC ACID PO SCH (13:55)
[2019-08-27] MEDS: LACTULOSE PO SCH ×2 (13:55→17:07)
[2019-08-27] MEDS: VITAMIN B-1 PO SCH (13:55)
[2019-08-27] MEDS: THERA M PLUS PO SCH (13:56)
[2019-08-27] MEDS: NEURONTIN PO SCH ×2 (13:56→21:13)
[2019-08-27] MEDS: VITAMIN D PO SCH (13:56)
[2019-08-27] MEDS: SODIUM CHLORIDE 0.9% 10 ML ONE (13:57)
--- NOTE | 2019-08-27 15:02 | PROVIDER PROGRESS NOTE ---
Progress Note Dr. Holley Progress Note/Pulmonary and or critical care We appreciated progress of care, Complications, change in diagnosis, and instructions to patient. Subjective: We note the level of consciousness, bed (chair) position, family presence (if any), level of lethargy, feeling of symptoms, and changes from baseline condition/symptom. The patient is lying in bed with no acute distress noted. Alert. States that he is feeling better. Family members at bedside. Objective: Vital Signs: We reviewed EMR current values for Pulse rate, Blood pressure, Pulse rate, respiratory rate and Pulse oximetry. Also noted other values and trends if present (e.g. I/O, CVP). T 98.9(no fever in last 24 hours), [place] 79, RR 16, BP 121/43 and SaO2 100% on RA. Physical Examination: General: Lying in bed with no acute distress noted. HEENT: Normocephalic. Trachea midline. Mucosa pink and moist. Chest: Even and unlabored. Symmetrical excursion. Auscultation reveals reduced entry bilaterally. CVS: Regular rate and rhythm with S1 and S2 appreciated. Abdomen: Soft. Mildly distended. Normoactive bowel sounds in all 4 quadrants noted. Extremities: BLE and BUE trace edema. Neuro: A/O . Speech fluent. Follow simple commands. Management, face to face evaluation by Dr. Holley. LIVIA Carter did scribing only. Labs and Radiology: Reviewed available labs and radiology values available at time of EMR review. Laboratory Results 08/27/19 08/27/19 06:56 06:56 WBC 13.00 H RBC 2.92 L Hgb 8.7 L Hct 27.4 L MCV 93.8 MCH 29.8 MCHC 31.8 L RDW Std Deviation 15.7 H Plt Count 202 MPV 11.2 H Immature Gran % (Auto) 0.3 Neut % (Auto) 72.2 Lymph % (Auto) 14.2 L [place] % (Auto) 9.5 H Eos % (Auto) 3.4 Baso % (Auto) 0.4 Immature Gran # (Auto) 0.04 Neut # (Auto) 9.39 H Lymph # (Auto) 1.85 [place] # (Auto) 1.23 H Eos # (Auto) 0.44 Baso # (Auto) 0.05 Sodium 139 Potassium 3.7 D Chloride 108 H Carbon Dioxide 20 L Anion Gap 11 BUN 5 L Creatinine 0.8 Estimated GFR/1.73 m2 > 60 BUN/Creatinine Ratio 6 Glucose 111 H Calculated Osmolality 275 Calcium 8.3 L Phosphorus 2.8 Magnesium 1.6 Total Bilirubin 1.45 H AST 85 H ALT 29 Alkaline Phosphatase 151 H Total Protein 6.4 Albumin 2.4 L Globulin 4.0 Albumin/Globulin Ratio 0.6 ssessment: Acute respiratory failure. Intubated on 08/20/19. Extubated on 08/22/19. Anemia of acute blood loss secondary to esophageal varix bleeding. S/P EGD with repeat banding on 08/20/19. Bilateral infiltrates concerning for aspiration pneumonia vs. hospital-acquired pneumonia. Prognosis is guarded. Plan: Continue current treatment and supportive care per admitting and other teams on the case. Supplemental oxygen titrated to patients needs per clinical protocol with closely monitoring. Antibiotics (Cefepime and vancomycin), bronchodilators and diuresis. Tobacco cessation education when appropriate. Appropriate DVT and GI prophylaxis Incentive spirometer. Physical therapy. Input was appreciated from Admitting MD and other teams on the case.
--- NOTE | 2019-08-27 15:22 | PROGRESS NOTE ---
DATE: 08/27/2019 SUBJECTIVE: The patient has been extubated 5 days ago and he is doing fine. He looks better. He is more awake. He is answering my questions. He is really hard to understand what he says, and he does have generalized weakness. The plan is to send this patient to a rehab center since he is not able to walk. OBJECTIVE: Vital Signs: Temperature 98.9 degrees, pulse 79, respiratory rate 16, blood pressure 121/43, oxygen saturation 100% on room air. HEENT: Head normocephalic. No trauma. PERRLA. Neck: Supple. No JVD. No masses. Central trachea. Chest: Clear to auscultation. Some crepitus at the bases. Abdomen: Soft, nontender, nondistended. No hepatosplenomegaly. Extremities: 1+ lower extremity edema. No clubbing. No cyanosis. Neurological: The patient is sleepy, but arousable. He is answering my questions. He seems to be more oriented. LABORATORY: WBC 13, hemoglobin 8.7, hematocrit 27.4, platelet 202,000. Sodium 139, potassium 3.7, chloride 108, bicarbonate 20, BUN 5, creatinine 0.8, glucose 111, calcium 8.3, magnesium 1.6. ASSESSMENT AND PLAN: 1. Severe hematemesis secondary to esophageal varices, status post emergent esophagogastroduodenoscopy about 6 or 7 days ago with banding as well. Extubated 5 days ago. He seems to be breathing better. Hemoglobin has been stable. We will continue to monitor. 2. Anemia of acute blood loss. He receive around 5 packed red blood cells during this hospitalization. 3. Altered mental status on presentation, likely due to alcohol withdrawal. This is getting better. 4. Alcohol abuse with withdrawal symptoms. Aware. 5. Cholelithiasis versus gallbladder polyps. Aware. 6. Right basilar infiltrate and atelectasis concerning for pneumonia. Continue with antibiotics. 7. Generalized weakness and physical deconditioning. Continue physical therapy and occupational therapy. 8. Hypokalemia resolve. 9. Disposition. Overall this patient is doing better. I have placed a consult for the director social service to evaluate this patient. He would like to go to a rehab center since he cannot walk and he does have generalized weakness. cc: Larry Foster MD
[2019-08-27] MEDS: FLOMAX PO SCH (21:13)
[2019-08-27] MEDS: SEROQUEL PO SCH (21:13)
[2019-08-28] MEDS: MAXIPIME 1 GM in NS 50 ML IV SCH ×3 (00:26→16:55)
[2019-08-28] MEDS: PROTONIX IV SCH ×3 (00:27→15:16)
[2019-08-28] MEDS: XOPENEX NEB INH SCH ×4 (03:10→22:58)
[2019-08-28] MEDS: ATROVENT NEB INH SCH ×4 (03:10→22:58)
--- NOTE | 2019-08-28 07:25 | Diag Imaging Result Doc PS360 ---
EXAM: CHEST-PORTABLE 08/28/2019 HISTORY: while intubated TECHNIQUE: AP portable at 0624 COMMENT: There is perihilar opacity in the left upper lobe similar in appearance to 08/27/2019. There is some opacity obscuring portions of the left hemidiaphragm. The inspiration is somewhat suboptimal. There is a PICC line on the right with its tip in the superior vena cava and sternotomy wires are present. IMPRESSION: Pulmonary edema and/or bronchopneumonia. Electronically signed by Hernan Graff 08/28/2019 7:23 AM
[2019-08-28 07:31] LABS: HEMATOCRIT 25.7 % (42.0-52.0); HEMOGLOBIN 8.3 g/dL (14.0-18.0); MCH 30.6 PG (27-31); MCHC 32.3 g/dL (33-37); MCV 94.8 FL (81-99); MPV 11.1 FL (7.4-10.4); RBC 2.71 XMIL (4.7-6.1); RDW 15.5 % (11.5-14.5); WBC 11.06 X1000 (4.8-10.8)
[2019-08-28 07:53] LABS: AGAP 8; BUN 4 mg/dL (8-22); CALCIUM 8.3 mg/dL (8.8-10.2); CHLORIDE 111 mmol/L (98-107); COSMO 280; CREATININE 0.8 mg/dL (0.7-1.2); ESTIMATED GFR > 60; GLUCOSE 95 mg/dL (70-104); POTASSIUM 3.5 mmol/L (3.5-5.1); SODIUM 142 mmol/L (136-145); TCO2 23 mmol/L (25-35)
[2019-08-28] MEDS: THERA M PLUS PO SCH (08:23)
[2019-08-28] MEDS: FOLIC ACID PO SCH (08:23)
[2019-08-28] MEDS: VITAMIN B-1 PO SCH (08:23)
[2019-08-28] MEDS: LACTULOSE PO SCH ×3 (08:25→16:55)
[2019-08-28] MEDS: NEURONTIN PO SCH ×2 (08:26→22:55)
[2019-08-28] MEDS ORDERED: LASIX IV ONE (09:25)
--- NOTE | 2019-08-28 12:30 | PROGRESS NOTE ---
DATE: 08/28/2019 SUBJECTIVE: The patient had been extubated 6 days ago and he is doing fine. X-ray showed a little bit of pulmonary edema so I will give him a single dose of Lasix today. He is answering my questions. He is following commands. Family members at the bedside. He has generalized weakness. OBJECTIVE: Vital Signs: Temperature 99 degrees, pulse 85, respiratory rate 16, blood pressure 128/66, oxygen saturation 98 on room air. HEENT: Head normocephalic. No trauma. PERRLA. Neck: Supple. No JVD. No masses. Central trachea. Chest: Clear to auscultation. Some crepitus at the bases. Abdomen: Soft, nontender, nondistended. No hepatosplenomegaly. Extremities: There is 1+ lower extremity edema. No clubbing. No cyanosis. Neurological Examination: Patient is awake and alert. He is oriented x3. No focal deficits. Laboratory: WBC 11, hemoglobin 8.3, hematocrit 25.7, platelets 209,000. Sodium 142, potassium 3.5, chloride 111, bicarbonate 23, BUN 4, creatinine 0.8, glucose 95, calcium 8.3. ASSESSMENT AND PLAN: 1. Severe hematemesis secondary to esophageal varices, status post emergent esophagogastroduodenoscopy with banding as well. He was extubated 6 days ago. He seems to be much better. We will continue to monitor. 2. Anemia of acute blood loss. He received a total of 5 units of packed red blood cells during this hospitalization. 3. Altered mental status on presentation, likely due to alcohol withdrawal. This is better. 4. Alcohol use and withdrawal symptoms. Aware. 5. Cholelithiasis versus gallbladder polyps. Aware. Surgery department already evaluated this patient. 6. Right basilar infiltrate and atelectasis concerning for pneumonia. Continue with antibiotics. 7. Generalized weakness and physical deconditioning. Continue physical therapy and occupational therapy. 8. Hypokalemia, resolved. 9. Disposition. This patient has generalized weakness. Physical therapy working on this patient as well as occupational therapy. Probably, this patient will need to go to a rehab center. sheet metal worker has been consulted already. cc: Larry Foster MD
--- NOTE | 2019-08-28 19:34 | PROVIDER PROGRESS NOTE ---
Progress Note Progress Note Dr. Holley Progress Note/Pulmonary and or critical care We appreciated progress of care, Complications, change in diagnosis, and instructions to patient. Subjective: We note the level of consciousness, bed (chair) position, family presence (if any), level of lethargy, feeling of symptoms, and changes from baseline condition/symptom. The patient is lying in bed with no acute distress noted. Alert. States that he is feeling better. Family members at bedside. Objective: Vital Signs: We reviewed EMR current values for Pulse rate, Blood pressure, Pulse rate, respiratory rate and Pulse oximetry. Also noted other values and trends if present (e.g. I/O, CVP). T 98.0 , [place] 109 , RR 20 , BP 120/44, and SaO2 100% on RA. Physical Examination: General: Lying in bed with no acute distress noted. HEENT: Normocephalic. Trachea midline. Mucosa pink and moist. Chest: Even and unlabored. Symmetrical excursion. Auscultation reveals reduced entry bilaterally. CVS: Regular rate and rhythm with S1 and S2 appreciated. Abdomen: Soft. Mildly distended. Normoactive bowel sounds in all 4 quadrants noted. Extremities: BLE and BUE trace edema. Neuro: A/O . Speech fluent. Follow simple commands. Management, face to face evaluation by Dr. Holley. LIVIA Carter did scribing only. Labs and Radiology: Reviewed available labs and radiology values available at time of EMR review. Laboratory Results 08/28/19 08/28/19 06:54 06:54 WBC 11.06 H RBC 2.71 L Hgb 8.3 L Hct 25.7 L MCV 94.8 MCH 30.6 MCHC 32.3 L RDW Std Deviation 15.5 H Plt Count 209 MPV 11.1 H Sodium 142 Potassium 3.5 Chloride 111 H Carbon Dioxide 23 L Anion Gap 8 BUN 4 L Creatinine 0.8 Estimated GFR/1.73 m2 > 60 BUN/Creatinine Ratio 5 Glucose 95 Calculated Osmolality 280 Calcium 8.3 L ssessment: Acute respiratory failure. Intubated on 08/20/19. Extubated on 08/22/19. Anemia of acute blood loss secondary to esophageal varix bleeding. S/P EGD with repeat banding on 08/20/19. Bilateral infiltrates concerning for aspiration pneumonia vs. hospital-acquired pneumonia. Prognosis is guarded. Plan: Continue current treatment and supportive care per admitting and other teams on the case. Supplemental oxygen titrated to patients needs per clinical protocol with closely monitoring. Antibiotics (Cefepime and vancomycin), bronchodilators and diuresis. Tobacco cessation education when appropriate. Appropriate DVT and GI prophylaxis Incentive spirometer. Physical therapy. Input was appreciated from Admitting MD and other teams on the case.
[2019-08-28] MEDS: SEROQUEL PO SCH (20:36)
[2019-08-28] MEDS: FLOMAX PO SCH (20:36)
[2019-08-29] MEDS: MAXIPIME 1 GM in NS 50 ML IV SCH ×3 (00:19→16:55)
[2019-08-29] MEDS: PROTONIX IV SCH ×3 (00:19→13:00)
[2019-08-29] MEDS: XOPENEX NEB INH SCH ×4 (03:42→22:31)
[2019-08-29] MEDS: ATROVENT NEB INH SCH ×4 (03:42→22:31)
--- NOTE | 2019-08-29 07:35 | Diag Imaging Result Doc PS360 ---
EXAM: CHEST-PORTABLE INDICATION: while intubated TECHNIQUE: One view COMPARISON: 08/28/2019 FINDINGS: Right PICC line is in stable position. There has slight interval worsening of consolidation involving the left upper and left lower lobes. No new consolidation is identified. Cardiac silhouette is stable. IMPRESSION: Interval slight worsening as described. Electronically signed by Juan Ramon David 08/29/2019 7:33 AM
[2019-08-29] MEDS: LACTULOSE PO SCH ×4 (08:08→17:19)
[2019-08-29] MEDS: THERA M PLUS PO SCH (08:08)
[2019-08-29] MEDS: NEURONTIN PO SCH ×2 (08:08→22:00)
[2019-08-29] MEDS: VITAMIN B-1 PO SCH (08:08)
[2019-08-29] MEDS: FOLIC ACID PO SCH (08:18)
[2019-08-29 10:43] LABS: BASO# 0.07 X1000 (0.0-0.2); BASO% 0.8 % (0.0-0.8); EOS# 0.45 X1000 (0.0-0.7); HEMOGLOBIN 8.2 g/dL (14.0-18.0); IMM GRAN# 0.03 X1000 (0.0-0.04); IMM GRAN% 0.3 % (0.0-0.5); LYMPH# 1.27 X1000 (1.2-3.4); LYMPH% 14.1 % (20.5-51.1); MCH 29.5 PG (27-31); MCHC 31.5 g/dL (33-37); MCV 93.5 FL (81-99); MONO# 1.49 X1000 (0.11-0.59); MONO% 16.5 % (1.7-9.3); MPV 10.4 FL (7.4-10.4); NEUT# 5.71 X1000 (1.4-6.5); NEUT% 63.3 % (42.2-75.2); PLT 233 X1000 (130-400); RBC 2.78 XMIL (4.7-6.1); RDW 15.4 % (11.5-14.5); WBC 9.02 X1000 (4.8-10.8)
[2019-08-29] MEDS: LEVAQUIN 750 MG/D5W 750 MG/150 ML IVPB IV SCH (10:48)
--- NOTE | 2019-08-29 11:49 | PROGRESS NOTE ---
DATE: 08/29/2019 SUBJECTIVE: The patient has been extubated 7 days ago. X-ray today showed an interval worsening of the consolidation involving the left upper and left lower lobes. No new consolidation. He will complete the treatment with cefepime for 2 weeks tomorrow, but I will add today levofloxacin. Yesterday he had a fever of 100.6 so I will keep this patient one more night. If he does not have any fever today and he is doing fine tomorrow, probably he can be discharged. He has been getting Lasix on and off IV, but I will start this patient on Lasix and spironolactone today as well. OBJECTIVE: Vital Signs: Temperature 99.2 degrees, pulse 85, respiratory rate 18, blood pressure 137/60, oxygen saturation 96% on room air. HEENT: Head, normocephalic, no trauma. PERRLA. Neck: Supple. No JVD. No masses. Central trachea. Chest: Clear to auscultation. Some crepitus at the bases, especially left base and left upper lung. Abdomen: Soft, nontender, nondistended. No hepatosplenomegaly. Some discomfort to palpation at the level of the epigastric and periumbilical area. Extremities: There is 1+ lower extremity edema. No clubbing. No cyanosis. Neurological: The patient is awake, alert. He is oriented, but he has generalized weakness. LABORATORY: WBC 9, hemoglobin 8.2, hematocrit 26, platelets 233,000. ASSESSMENT AND PLAN: 1. Severe hematemesis secondary to esophageal viruses. The patient had a similar episode previously, and actually he had an emergent esophagogastroduodenoscopy about 7 days ago with banding as well. He was extubated 5 days ago. He seems to be breathing good, but the x-ray looks worse, and he had an episode of fever yesterday. 2. Left upper and lower lobe pneumonia. Continue with antibiotics. He will complete the treatment with cefepime tomorrow. He took around 14 days. Now, I will put him on levofloxacin. Yesterday he had a low-grade temperature, but if he spends the day today without any fever, probably tomorrow he can be discharged to a rehab center. 3. Alcoholic liver cirrhosis. I have placed this patient on Lasix 20 mg daily and spironolactone 50 daily. Upon discharge, likely this patient will need to follow up with Gastroenterology Department. He needs to follow a diet. This has been discussed with the patient. 4. Altered mental status on presentation, likely due to alcohol withdrawal, resolved. 5. Alcohol use and withdrawal symptoms, resolved, this patient has been highly advised against alcohol use. I will continue with daily cessation education. 6. Cholelithiasis versus gallbladder polyps. Aware. 7. Generalized weakness and physical deconditioning. Continue physical therapy and occupational therapy. 8. Hypokalemia, resolved. SUMMARY: Overall, this patient is doing better. His x-ray looks worse and yesterday he had an episode of fever, so I will go ahead and add levofloxacin to his medications. Today is number 13 of cefepime, and I am planning to continue that for 1 more day. If he is doing fine tomorrow, probably he can be discharged to the rehab center. I do believe we do have a bed now. cc: Larry Foster MD
[2019-08-29] MEDS: ALDACTONE PO SCH (12:58)
[2019-08-29] MEDS: CORGARD PO SCH (12:58)
--- NOTE | 2019-08-29 17:08 | PROVIDER PROGRESS NOTE ---
Progress Note Dr. Holley Progress Note/Pulmonary and or critical care We appreciated progress of care, Complications, change in diagnosis, and instructions to patient. Subjective: We note the level of consciousness, bed (chair) position, family presence (if any), level of lethargy, feeling of symptoms, and changes from baseline condition/symptom. The patient is sitting at the edge of the bed on room air with no acute distress noted. He reports no frequent cough or pain. He states he is feeling better. He did have fever of 100.6 [address] night at [address]. Dr. Hernandez is adding Levaquin 750mg IV QD today. Objective: Vital Signs: We reviewed EMR current values for Pulse rate, Blood pressure, Pulse rate, respiratory rate and Pulse oximetry. Also noted other values and trends if present (e.g. I/O, CVP). T 99.2, [place] 78, RR 16, BP 137/60 and SaO2 99% on room air. Physical Examination: General: Sitting at the edge of the bed with no acute distress noted. HEENT: Normocephalic. Trachea midline. Mucosa pink and moist. Chest: Even and unlabored. Symmetrical excursion. Diminished breathing sounds bilaterally, clear otherwise. CVS: Regular rate and rhythm with S1 and S2 appreciated. Abdomen: Soft. Mildly distended. Normoactive bowel sounds in all 4 quadrants noted. Extremities: BLE and BUE pitting edema 1+. Neuro: A/O x 4. Speech fluent. Follow simple commands. Labs and Radiology: Reviewed available labs and radiology values available at time of EMR review. Laboratory Results 08/29/19 10:13 WBC 9.02 RBC 2.78 L Hgb 8.2 L Hct 26.0 L MCV 93.5 MCH 29.5 MCHC 31.5 L RDW Std Deviation 15.4 H Plt Count 233 MPV 10.4 Immature Gran % (Auto) 0.3 Neut % (Auto) 63.3 Lymph % (Auto) 14.1 L [place] % (Auto) 16.5 H Eos % (Auto) 5.0 Baso % (Auto) 0.8 Immature Gran # (Auto) 0.03 Neut # (Auto) 5.71 Lymph # (Auto) 1.27 [place] # (Auto) 1.49 H Eos # (Auto) 0.45 Baso # (Auto) 0.07 Assessment: Acute respiratory failure. Intubated on 08/20/19. Extubated on 08/22/19. Improved. On room air. Anemia of acute blood loss secondary to esophageal varix bleeding. S/P EGD with repeat banding on 08/20/19. Bilateral infiltrates concerning for aspiration pneumonia vs. hospital-acquired pneumonia. CXR today shows interval slight worsening with JIMENA and LLL interval worsening consolidation. Tobacco use prior to this admission. Plan: Continue current treatment and supportive care per admitting and other teams on the case. Antibiotics (Cefepime and Levaquin) and bronchodilators. Tobacco cessation education. Appropriate DVT and GI prophylaxis Incentive spirometer. Physical therapy. Input was appreciated from Admitting MD and other teams on the case.
[2019-08-29] MEDS: SEROQUEL PO SCH (22:00)
[2019-08-29] MEDS: FLOMAX PO SCH (22:00)
[2019-08-30] MEDS: MAXIPIME 1 GM in NS 50 ML IV SCH ×3 (02:21→16:58)
[2019-08-30] MEDS: PROTONIX IV SCH ×3 (02:22→16:57)
[2019-08-30] MEDS: XOPENEX NEB INH SCH ×4 (03:39→22:40)
[2019-08-30] MEDS: ATROVENT NEB INH SCH ×4 (03:39→22:40)
--- NOTE | 2019-08-30 07:11 | Diag Imaging Result Doc PS360 ---
EXAM: CHEST-PORTABLE HISTORY: while intubated TECHNIQUE: Single view COMPARISON: 08/29/2009 FINDINGS: No change in the right-sided PICC line. The lungs are well expanded. The sternal wires. Heart is mildly enlarged. There is vascular distention. There are underlying infiltrates in the left lung. No pleural effusions identified. IMPRESSION: Worsening pulmonary edema with stable infiltrates in the left lung. Electronically signed by Filippo Bentley 08/30/2019 7:08 AM
[2019-08-30 07:53] LABS: BASO# 0.06 X1000 (0.0-0.2); BASO% 0.7 % (0.0-0.8); EOS# 0.54 X1000 (0.0-0.7); HEMATOCRIT 26.2 % (42.0-52.0); HEMOGLOBIN 8.3 g/dL (14.0-18.0); IMM GRAN# 0.03 X1000 (0.0-0.04); IMM GRAN% 0.3 % (0.0-0.5); LYMPH# 1.99 X1000 (1.2-3.4); MCH 29.4 PG (27-31); MCHC 31.7 g/dL (33-37); MCV 92.9 FL (81-99); MONO# 1.59 X1000 (0.11-0.59); MONO% 17.6 % (1.7-9.3); MPV 11.3 FL (7.4-10.4); NEUT# 4.83 X1000 (1.4-6.5); NEUT% 53.4 % (42.2-75.2); PLT 216 X1000 (130-400); RBC 2.82 XMIL (4.7-6.1); RDW 15.3 % (11.5-14.5); WBC 9.04 X1000 (4.8-10.8)
[2019-08-30 08:13] LABS: AGAP 8; ALB/GLOB RATIO 0.6; ALBUMIN 2.3 g/dL (3.5-5.0); ALKALINE PHOSPHATASE 145 U/L (32-122); BUN 4 mg/dL (8-22); CALCIUM 8.3 mg/dL (8.8-10.2); CHLORIDE 106 mmol/L (98-107); COSMO 268; CREATININE 0.8 mg/dL (0.7-1.2); ESTIMATED GFR > 60; GLUCOSE 91 mg/dL (70-104); GOT 50 U/L (10-34); GPT 23 U/L (10-44); POTASSIUM 3.8 mmol/L (3.5-5.1); SODIUM 136 mmol/L (136-145); TCO2 22 mmol/L (25-35); TOTAL BILIRUBIN 1.29 mg/dL (0.20-1.00); TOTAL PROTEIN 6.1 g/dL (6.3-8.3)
--- NOTE | 2019-08-30 08:20 | PROGRESS NOTE ---
DATE: 08/30/2019 SUBJECTIVE: Mr. De Guzman was admitted on 08/06/2019. Came in with hemoptysis. He is followed by Dr. Linda Wayne. This is a 59-year-old male with history of hypertension, atrial fibrillation, gastroesophageal reflux disease, prostate cancer, as well as alcoholism, who presented to the hospital because of hematemesis, had been vomiting bright red blood. Hematocrit at the time of presentation was noted to be 29. INR was 1.66. The patient was started on Protonix infusion. Admitted to the hospital, so admitted with upper gastrointestinal bleed, alcoholism, thrombocytopenia and elevated liver transaminases secondary to alcoholic hepatitis, hypertension, history of gastroesophageal reflux disease and atrial fibrillation with elevated rate. He is feels better. He says he is still pretty unstable on his feet and still weak and still trying to work with physical therapy. OBJECTIVE: Vital signs: Temperature 99 degrees, pulse 79, respirations 14, blood pressure 118/55. HEENT: Pupils are equal and round. Lungs: Clear in all lung elizalde. Cardiovascular: Regular rhythm and rate without murmur or S3. Urine output: 3700 mL. ASSESSMENT AND PLAN: 1. Severe hematemesis secondary to esophageal varices, had similar episodes previously. He actually had emergent EGD 7 days ago. He was extubated about 6 days ago. He is breathing good and seems to be doing better from that standpoint. 2. Left upper and lower lobe pneumonia. He will complete treatment of cefepime and I think he has completed it. He had 14 days worth and they put him on levofloxacin. 3. Alcoholic liver cirrhosis and alcoholic hepatitis. He is getting Lasix 20 mg a day, spironolactone 50 mg a day and we will need to follow up with GI. 4. Altered mental status on presentation due to alcohol withdrawal which resolved. 5. Alcohol use and withdrawal, resolved. The patient has been advised against alcohol and counseled on the importance of alcohol cessation. 6. Cholelithiasis versus gallbladder polyps. Aware. 7. Generalized weakness, physical deconditioning. Continue physical therapy. Hopefully we can go home soon. 8. Hypokalemia, which is resolved. cc: Cem Frazier MD
[2019-08-30] MEDS: NEURONTIN PO SCH ×2 (09:27→20:43)
[2019-08-30] MEDS: FOLIC ACID PO SCH (09:28)
[2019-08-30] MEDS: LASIX PO SCH (09:28)
[2019-08-30] MEDS: ALDACTONE PO SCH (09:28)
[2019-08-30] MEDS: LACTULOSE PO SCH ×3 (09:28→16:58)
[2019-08-30] MEDS: VITAMIN B-1 PO SCH (09:28)
[2019-08-30] MEDS: LEVAQUIN 750 MG/D5W 750 MG/150 ML IVPB IV SCH (09:28)
[2019-08-30] MEDS: THERA M PLUS PO SCH (09:28)
[2019-08-30] MEDS: CORGARD PO SCH (09:29)
[2019-08-30] MEDS ORDERED: SODIUM CHLORIDE 0.9% 10 ML ONE ×2 (10:20→14:41)
--- NOTE | 2019-08-30 18:22 | PROVIDER PROGRESS NOTE ---
Progress Note Dr. Holley Progress Note/Pulmonary and or critical care Subjective: The patient is sitting at the edge of the bed on room air with no acute distress noted. He states he is fine. He has no complaint at this time. He has no fever in last 24 hours. Patients girlfriend is at the bedside. Objective: Vital Signs: T 98.7, SC 82, RR 14, BP 125/59 and SaO2 100% on room air. Physical Examination: General: Sitting at the edge of the bed with no acute distress noted. HEENT: Normocephalic. Trachea midline. Mucosa pink and moist. Chest: Even and unlabored. Symmetrical excursion. Diminished breathing sounds bilaterally, clear otherwise. CVS: Regular rate and rhythm with S1 and S2 appreciated. Abdomen: Soft. Mildly distended. Normoactive bowel sounds in all 4 quadrants noted. Extremities: BLE and BUE pitting edema 1+. Neuro: A/O x 4. Speech fluent. Follow simple commands. Labs and Radiology: Laboratory Results 08/30/19 08/30/19 07:09 07:09 WBC 9.04 RBC 2.82 L Hgb 8.3 L Hct 26.2 L MCV 92.9 MCH 29.4 MCHC 31.7 L RDW Std Deviation 15.3 H Plt Count 216 MPV 11.3 H Immature Gran % (Auto) 0.3 Neut % (Auto) 53.4 Lymph % (Auto) 22.0 Hendricks % (Auto) 17.6 H Eos % (Auto) 6.0 Baso % (Auto) 0.7 Immature Gran # (Auto) 0.03 Neut # (Auto) 4.83 Lymph # (Auto) 1.99 Hendricks # (Auto) 1.59 H Eos # (Auto) 0.54 Baso # (Auto) 0.06 Sodium 136 Potassium 3.8 Chloride 106 Carbon Dioxide 22 L Anion Gap 8 BUN 4 L Creatinine 0.8 Estimated GFR/1.73 m2 > 60 BUN/Creatinine Ratio 5 Glucose 91 Calculated Osmolality 268 Calcium 8.3 L Total Bilirubin 1.29 H AST 50 H ALT 23 Alkaline Phosphatase 145 H Total Protein 6.1 L Albumin 2.3 L Globulin 3.8 Albumin/Globulin Ratio 0.6 Assessment: Acute respiratory failure. Intubated on 08/20/19. Extubated on 08/22/19. Improved. On room air. Anemia of acute blood loss secondary to esophageal varix bleeding. S/P EGD with repeat banding on 08/20/19. Bilateral infiltrates concerning for aspiration pneumonia vs. hospital-acquired pneumonia. CXR today shows worsening pulmonary edema with stable infiltrates in the left lung. Tobacco use prior to this admission. Plan: Continue current treatment and supportive care per admitting and other teams on the case. Antibiotics (Cefepime and Levaquin) and bronchodilators. Tobacco cessation education. Appropriate DVT and GI prophylaxis Incentive spirometer. Physical therapy.
[2019-08-30] MEDS: SEROQUEL PO SCH (20:43)
[2019-08-30] MEDS: FLOMAX PO SCH (20:43)
[2019-08-31] MEDS: MAXIPIME 1 GM in NS 50 ML IV SCH ×4 (01:00→23:54)
[2019-08-31] MEDS: PROTONIX IV SCH ×2 (01:41→13:18)
[2019-08-31] MEDS: ATROVENT NEB INH SCH ×3 (03:48→15:26)
[2019-08-31] MEDS: XOPENEX NEB INH SCH ×3 (03:48→15:26)
--- NOTE | 2019-08-31 07:25 | Diag Imaging Result Doc PS360 ---
EXAM: CHEST-PORTABLE 08/31/2019 HISTORY: while intubated TECHNIQUE: AP portable at 0605 COMMENT: There is ill-defined opacity in the lingula and left lower lobe which is slightly worse than on 08/30/2019. Right lung remains clear. There is a PICC line on the right with its tip in the superior vena cava. IMPRESSION: Left upper lobe pneumonia. Electronically signed by Hernan Graff 08/31/2019 7:23 AM
[2019-08-31] MEDS: LEVAQUIN 750 MG/D5W 750 MG/150 ML IVPB IV SCH (09:24)
[2019-08-31] MEDS: LASIX PO SCH (09:24)
[2019-08-31] MEDS: THERA M PLUS PO SCH (09:24)
[2019-08-31] MEDS: FOLIC ACID PO SCH (09:24)
[2019-08-31] MEDS: ALDACTONE PO SCH (09:24)
[2019-08-31] MEDS: LACTULOSE PO SCH ×3 (09:24→16:34)
[2019-08-31] MEDS: VITAMIN B-1 PO SCH (09:24)
[2019-08-31] MEDS: CORGARD PO SCH (09:25)
[2019-08-31] MEDS: NEURONTIN PO SCH ×2 (09:35→20:45)
--- NOTE | 2019-08-31 10:18 | PROGRESS NOTE ---
DATE: 08/31/2019 SUBJECTIVE: Mr. De Guzman is sitting up in a chair. He said he has been ambulating, feels like he is stronger, feels like his balance is improving. OBJECTIVE: Vitals: Temperature 98.3 degrees, pulse 85, respirations 20, blood pressure 121/86. HEENT: Pupils are equal and round. Lungs: Clear in all lung elizalde. Cardiovascular: Regular rate without murmur or S3. Abdomen: Soft. Skin: Warm and dry. IMAGING: Chest x-ray from this morning with left upper lobe pneumonia. Rest of the x-ray lung elizalde look clear. ASSESSMENT AND PLAN: 1. Acute respiratory failure, intubated on 08/20/2019, extubated on 08/22/2019. He continues to improve on room air. 2. Anemia of acute blood loss secondary to esophageal varices bleeding status post EGD and repeated banding on 08/20/2019. 3. Bilateral infiltrates concerning for aspiration pneumonia, hospital-acquired pneumonia. Chest x-ray showed some worsening pulmonary edema and stable infiltrates in the left lung. Clinically, he is improved. 4. Tobacco use prior to this admission. Continue present antibiotics and pulmonary toilet. He is getting physical therapy and it seems like we are making improvement. Hopefully he can be discharged in a couple of days. cc: Cem Frazier MD
--- NOTE | 2019-08-31 18:46 | PROVIDER PROGRESS NOTE ---
Progress Note Dr. Holley Progress Note/Pulmonary and or critical care Subjective: The patient is sitting at the edge of the bed with breathing treatment going on. He is on room air. He reports no cough or SOB, but the breathing treatment makes his nose runny. He complains of dry throat and has to keep drinking. Patients girlfriend is at the bedside. Objective: Vital Signs: T 98.3, [place] 85, RR 20, BP 121/86 and SaO2 100% on room air. Physical Examination: General: Sitting at the edge of the bed with no acute distress noted. HEENT: Normocephalic. Trachea midline. Mucosa pink and moist. Chest: Even and unlabored. Symmetrical excursion. Clear to auscultation bilat erally. CVS: Regular rate and rhythm with S1 and S2 appreciated. Abdomen: Soft. Mildly distended. Normoactive bowel sounds in all 4 quadrants noted. Extremities: BLE and BUE pitting edema 1+. Neuro: A/O x 4. Speech fluent. Follow simple commands. Labs and Radiology: Assessment: Acute respiratory failure. Intubated on 08/20/19. Extubated on 08/22/19. Improved. On room air. Anemia of acute blood loss secondary to esophageal varix bleeding. S/P EGD with repeat banding on 08/20/19. Bilateral infiltrates concerning for aspiration pneumonia vs. hospital-acquired pneumonia. CXR today shows slightly worse lingula and LLL ill-defined opacity. Tobacco use prior to this admission. Plan: Continue current treatment and supportive care per admitting and other teams on the case. Antibiotics (Cefepime and Levaquin) and bronchodilators (switch from scheduled to PRN). Tobacco cessation education. Appropriate DVT and GI prophylaxis Incentive spirometer. Physical therapy.
[2019-08-31] MEDS: FLOMAX PO SCH (20:45)
[2019-08-31] MEDS: SEROQUEL PO SCH (20:45)
[2019-09-01] MEDS: PROTONIX IV SCH ×2 (03:29→16:19)
[2019-09-01] MEDS: SODIUM CHLORIDE 0.9% INJ PRN ×2 (03:29→16:19)
--- NOTE | 2019-09-01 06:28 | Diag Imaging Result Doc PS360 ---
CHEST-PORTABLE - 09/01/2019 INDICATION: while intubated COMPARISON: 08/31/2019 FINDINGS: Stable right PICC line. Lung volumes are even lower, critically low. Stable hazy interstitial infiltrate in the left perihilar lung. Stable linear atelectasis in both lung bases. Heart size remains borderline enlarged. IMPRESSION: Lower lung volumes. Otherwise no change from prior. Electronically signed by Abram Hurley 09/01/2019 6:25 AM
[2019-09-01] MEDS: MAXIPIME 1 GM in NS 50 ML IV SCH ×3 (08:20→23:12)
[2019-09-01] MEDS: CORGARD PO SCH (09:04)
[2019-09-01] MEDS: FOLIC ACID PO SCH (09:05)
[2019-09-01] MEDS: LASIX PO SCH (09:06)
[2019-09-01] MEDS: THERA M PLUS PO SCH (09:06)
[2019-09-01] MEDS: NEURONTIN PO SCH ×2 (09:07→23:12)
[2019-09-01] MEDS: VITAMIN B-1 PO SCH (09:07)
[2019-09-01] MEDS: ALDACTONE PO SCH (09:08)
[2019-09-01] MEDS: LACTULOSE PO SCH ×3 (09:09→16:18)
[2019-09-01] MEDS: LEVAQUIN 750 MG/D5W 750 MG/150 ML IVPB IV SCH (10:18)
--- NOTE | 2019-09-01 10:49 | PROGRESS NOTE ---
DATE: 09/01/2019 SUBJECTIVE: Mr. De Guzman is stronger, but he is still having trouble walking and ambulating on his own, still had a lot of weakness. I think he would like to pursue going to rehab. I will see if he is eligible. OBJECTIVE: Vital Signs: Temperature is 98.9, pulse is 80, respirations 16, blood pressure 150/67. Eyes: Pupils are equal and round. Lungs: Clear in all lung elizalde. Cardiovascular exam: Regular rhythm and rate without murmur or S3. His chest x-ray lower lung volumes, but otherwise unchanged. Right-sided PICC line. Lung volumes were lower. Stable hazy interstitial infiltrate in the left perihilar lung. Stable linear atelectasis, both lung bases. This is on this morning's x-ray. So clinically, he has not had any trouble breathing. ASSESSMENT AND PLAN: 1. Acute respiratory failure, intubated on 08/20/2019, extubated on 08/22/2019. He is on room air at the present time and breathing better. 2. Anemia of acute blood loss secondary to esophageal variceal bleeding, status post esophagogastroduodenoscopy. Repeat banding on 08/20/2019. 3. Bilateral infiltrates concerning for aspiration pneumonia, hospital-acquired pneumonia. Chest x-ray shows a left lower lobe ill-defined opacity, but suspect atelectasis. 4. Been counseled on the importance of quitting tobacco. 5. General weakness, deconditioning. We will see if we can pursue physical therapy. I do not think he is ready to go home. So he has physical therapy and occupational therapy. I will have social workers look for possibility of inpatient rehabilitation. cc: Cem Frazier MD
--- NOTE | 2019-09-01 19:33 | PROVIDER PROGRESS NOTE ---
Progress Note Dr. Holley Progress Note/Pulmonary and or critical care Subjective: The patient is sitting at the edge of the bed having lunch. He is on room air. He complains of worsening pedal edema with tenderness. Patients girlfriend is at the bedside. Objective: Vital Signs: T 98.7, [place] 78, RR 20, BP 139/65 and SaO2 100% on room air. Physical Examination: General: Sitting at the edge of the bed with no acute distress noted. HEENT: Normocephalic. Trachea midline. Mucosa pink and moist. Chest: Even and unlabored. Symmetrical excursion. Clear to auscultation bilaterally. CVS: Regular rate and rhythm with S1 and S2 appreciated. Abdomen: Soft. Mildly distended. Normoactive bowel sounds in all 4 quadrants noted. Extremities: BLE and BUE pitting edema 1-2+. Neuro: A/O x 4. Speech fluent. Follow simple commands. Labs and Radiology: Assessment: Acute respiratory failure. Intubated on 08/20/19. Extubated on 08/22/19. Improved. On room air. Anemia of acute blood loss secondary to esophageal varix bleeding. S/P EGD with repeat banding on 08/20/19. Bilateral infiltrates concerning for aspiration pneumonia vs. hospital-acquired pneumonia. CXR today shows critically low lung volumes with stable hazy interstitial infiltrate in the left perihilar lung, bibasilar linear atelectasis and borderline cardiomegaly. Tobacco use prior to this admission. Plan: Continue current treatment and supportive care per admitting and other teams on the case. Antibiotics (Cefepime and Levaquin) and bronchodilators (PRN). Tobacco cessation education. Appropriate DVT and GI prophylaxis Incentive spirometer. Physical therapy.
[2019-09-01] MEDS: ALBUTEROL NEB INH PRN (19:37)
[2019-09-01] MEDS: ATROVENT NEB INH PRN (19:37)
[2019-09-01] MEDS: SEROQUEL PO SCH (23:12)
[2019-09-01] MEDS: FLOMAX PO SCH (23:12)
[2019-09-02] MEDS: PROTONIX IV SCH (04:39)
[2019-09-02] MEDS: SODIUM CHLORIDE 0.9% INJ PRN (04:39)
--- NOTE | 2019-09-02 07:44 | Diag Imaging Result Doc PS360 ---
EXAM: CHEST-PORTABLE INDICATION: while intubated TECHNIQUE: One view COMPARISON: 09/01/2019 FINDINGS: The PICC line is in stable position. Lung volumes remain low. Mild interstitial infiltrate in the left perihilar region appears to have improved slightly. No new consolidation is identified. Cardiac silhouette is stable. IMPRESSION: Interval improvement. Electronically signed by Juan Ramon David 09/02/2019 7:41 AM
[2019-09-02] MEDS: MAXIPIME 1 GM in NS 50 ML IV SCH (08:33)
[2019-09-02] MEDS: VITAMIN B-1 PO SCH (08:34)
[2019-09-02] MEDS: LASIX PO SCH (08:34)
[2019-09-02] MEDS: NEURONTIN PO SCH (08:34)
[2019-09-02] MEDS: THERA M PLUS PO SCH (08:34)
[2019-09-02] MEDS: FOLIC ACID PO SCH (08:34)
[2019-09-02] MEDS: ALDACTONE PO SCH (08:34)
[2019-09-02] MEDS: LACTULOSE PO SCH ×2 (08:34→13:44)
[2019-09-02] MEDS: CORGARD PO SCH (08:34)
[2019-09-02] MEDS: LEVAQUIN 750 MG/D5W 750 MG/150 ML IVPB IV SCH (09:14)
[2019-09-02] MEDS: ALBUTEROL NEB INH PRN (09:17)
[2019-09-02] MEDS: ATROVENT NEB INH PRN (09:17)
--- NOTE | 2019-09-02 09:40 | PROGRESS NOTE ---
DATE: 09/02/2019 SUBJECTIVE: He complains that his ankles and feet swell, especially at the end of the day. They seem to go down by morning time. He is he is able to walk with a great deal of assistance, but his balance is poor. He is eating. His bowels are moving good. OBJECTIVE: He remains afebrile, temperature 98.7 degrees, pulse 80, respirations 14, blood pressure 123/78. Pupils are equal and round. Lungs are clear in all lung elizalde. Cardiovascular exam with regular rhythm and rate without murmur or S3. Abdomen is soft. Skin is warm and dry urine. Output is 1400 mL. Chest x-ray with interval improvement. PICC line is in stable position. Lung volumes remain low. Mild interstitial infiltrate in the left perihilar region appears to have improved slightly. No new consolidation. ASSESSMENT AND PLAN: 1. Acute respiratory failure, intubated on 08/20/2019 and extubated 08/22/2019. Continues to improve with air and gas exchange. 2. Anemia of acute blood loss secondary to esophageal varices status post EGD and repeat banding in 08/20/2019. 3. Bilateral infiltrates concerning for aspiration pneumonia versus hospital-acquired pneumonia. Chest x-ray shows critically low lung volumes with stable hazy interstitial infiltrate in the left perihilar lung. He has bibasilar linear atelectasis, borderline cardiomegaly radiographically, though he is improving. 4. General weakness, ataxia. Continue physical therapy. They want to pursue going to rehab, so he will be here this weekend and look for going to rehab the first of the week. cc: Cem Frazier MD
[2019-09-02 11:11] VITALS: BP 137/81
--- NOTE | 2019-09-02 13:28 | DISCHARGE SUMMARY ---
ADMISSION DATE: 08/06/2019 DISCHARGE DATE: 09/02/2019 HISTORY OF PRESENT ILLNESS: This is a 59-year-old black male with a history of hypertension, atrial fibrillation, gastroesophageal reflux disease, prostate cancer, as well as alcoholism, who presented to the hospital with history of hematemesis. The patient has been vomiting bright red blood. Hematocrit at the time of presentation was noted to be about 29. INR was 1.66. He was started on some IV Protonix infusion and Sandostatin infusion and was admitted. Past medical history of prostate cancer, atrial fibrillation, hypertension, gastroesophageal reflux disease. ADMISSION DIAGNOSES: 1. Upper gastrointestinal bleed suspect secondary to varicocele bleeding started on IV Protonix and octreotide and following hemoglobin, hematocrit, and transfuse packed red blood cells as needed. 2. Alcoholism. Maintain the patient on prophylaxis for delirium tremens. 3. Thrombocytopenia, likely secondary to effects of alcohol on the bone marrow and underlying liver disease and portal hypertension. 4. Abnormal liver function tests, likely secondary to alcoholic hepatitis and checked hepatitis profile. 5. Hypertension. They tried to optimize blood pressure. 6. Gastroesophageal reflux. We put him on a proton pump IV drip. 7. Atrial fibrillation. Put him on telemetry maintaining his rate. Check thyroid function tests. 8. History of prostate cancer. He was put on deep venous thrombosis prophylaxis. HOSPITAL COURSE: Abdominal and pelvic CT was performed, showed pulmonary edema, acute cholecystitis, cholelithiasis, pancreatitis, distal esophagitis, patchy colitis and proctitis urinary cystitis. Echocardiogram performed on 08/07 left ventricular function ejection fraction 66%. There may be some borderline concentric left ventricular hypertrophy. No significant valvular dysfunction. Abdominal ultrasound done 08/07 left nephrolithiasis, cholelithiasis versus polyp appreciated in the gallbladder. Endoscopic procedure done per Dr. Ding. There were no complications. He had an EGD. Z-line was at 42 cm from the incisors. Four columns of large esophageal varices and varices in the middle third of the esophagus and lower third of esophagus. Duodenal inflammation was found in the duodenal bulb. No duodenal abnormalities in the second part of the duodenum. Liver function seemed to improve. He had 4 columns of large esophageal varices. Varices in the middle 3rd of the esophagus and lower 3rd esophagus. Complete hemostasis was achieved by banding three esophageal varices. Gastropathy was found in the gastric body. Duodenal inflammation was found in the duodenal bulb, but there was no abnormality shown in 2nd part of the duodenum. They discontinued the Sandostatin IV drip and gave him some folic acid and gave him thiamine at 100 mg daily and advanced his diet and began some physical therapy and he was still pretty weak. His balance is poor, so he wanted to go to rehab, so we will set him up to go to rehab at [facility]. DISCHARGE MEDICATIONS: Lasix 20 mg daily, folic acid 1 mg a day, vitamin D 10175 units once a week. We can stop his antibiotics. He is getting lactulose 30 mL p.o. t.i.d. We will stop his Levaquin. We will stop his cefepime. He is on Corgard 10 mg p.o. daily. Protonix 40 mg we will give him p.o. twice a day, Seroquel 50 mg p.o. at bedtime, and Aldactone 50 mg daily, Flomax 0.4 mg at bedtime, vitamin B1 or thiamine 100 mg daily. DISPOSITION: We will set him up to go to physical therapy at [facility]. cc: Cem Frazier MD
== END 2019-09-02 15:43 | DRG 432 ==
LOC: SUPCPDRO → ED 17:50 → ICU 23:17 → SUATTDRO 23:17 → 4N 08-25 12:11
PROVIDERS: ATTEND Emergency Medicine